=== PATIENT | female | born 1955 ===

== ENCOUNTER 2017-09-04 11:42 | Inpatient (IN) | payer MEDICARE, MEDICAID ==
[2017-09-04] MEDS ORDERED: Sodium Chloride 0.9% 500 ML IV STA (12:44)
--- NOTE | 2017-09-04 12:47 | ED PDOC ---
HPI: General Adult Time Seen by Provider: 09/04/17 12:00 Chief Complaint (Nursing): Psychiatric Evaluation Chief Complaint (Provider): depressed History Per: Patient History/Exam Limitations: no limitations Onset/Duration Of Symptoms: Days (3) Additional Complaint(s): Pt. with weakness all over. Tired. Today she got out of bed and felt weak and sat down and slept on the floor. No syncope. health aid called EMS. Pt. denies any chest pain, dyspnea, nausea, vomit, diarrhea, fever, cough, abd pain, numbness, tingles, dizziness. No headache or neck pain. 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 Feels depressed since her . Past Medical History Reviewed: Nursing Documentation, Vital Signs Vital Signs: Last Vital Signs Temp 98.8 F 09/04/17 15:46 Pulse 68 09/04/17 15:46 Resp 16 09/04/17 15:46 BP 118/69 09/04/17 15:46 Pulse Ox 99 09/04/17 17:02 - Medical History PMH: Dementia, Diabetes, HTN, Hypercholesterolemia - Family History Family History: States: Unknown Family Hx - Social History Alcohol: None Drugs: Denies - Home Medications Home Medications: Ambulatory Orders Medication Instructions Recorded Atorvastatin [Lipitor] 10 mg PO HS 09/04/17 Calcium/Mag/D3/B12/FA/B6/[place] 1 tab PO DAILY 09/04/17 [Folgard Os Tablet] Carvedilol [Coreg] 25 mg PO Q12 09/04/17 Clonazepam [Klonopin] 2 mg PO Q12 09/04/17 Digoxin [Digitek] 125 mcg PO DAILY 09/04/17 Ergocalciferol (Vitamin D2) 50,000 unit PO QWK 09/04/17 [Vitamin D2] Ibandronate Sodium [Boniva] 150 mg PO Q30D 09/04/17 Linagliptin/Metformin HCl 1 tab PO DAILY 09/04/17 [Jentadueto Xr 2.5 mg-1,000 mg] Lisinopril [Zestril] 2.5 mg PO DAILY 09/04/17 Potassium Chloride [Klor-Con 8] 8 meq PO DAILY 09/04/17 Spironolactone [Aldactone] 25 mg PO DAILY 09/04/17 Torsemide [Demadex] 20 mg PO DAILY 09/04/17 Zolpidem [Ambien] 5 mg PO HS 09/04/17 - Allergies Allergies/Adverse Reactions: Allergies Allergy/AdvReac Type Severity Reaction Status Date / Time Unobtainable Allergy Verified 09/04/17 11:54 Review of Systems ROS Statement: Except As Marked, All Systems Reviewed And Found Negative Constitutional: Positive for: Weakness Neurological: Positive for: Weakness Physical Exam - Reviewed Nursing Documentation Reviewed: Yes Vital Signs Reviewed: Yes - Physical Exam Appears: Positive for: Non-toxic, No Acute Distress Head Exam: Positive for: ATRAUMATIC, NORMAL INSPECTION, NORMOCEPHALIC Skin: Positive for: Normal Color, Warm, DRY Eye Exam: Positive for: EOMI, PERRL (2+) ENT: Positive for: Normal ENT Inspection. Negative for: Nasal Congestion Neck: Positive for: Normal, Painless ROM, Supple Cardiovascular/Chest: Positive for: Regular Rate, Rhythm Respiratory: Positive for: CNT, Normal Breath Sounds Gastrointestinal/Abdominal: Positive for: Normal Exam, Bowel Sounds, Soft. Negative for: Tenderness Back: Positive for: Normal Inspection. Negative for: L CVA Tenderness, R CVA Tenderness Extremity: Positive for: Normal ROM. Negative for: Tenderness, Pedal Edema Neurologic/Psych: Positive for: Alert, drip pumper II-XII, Oriented, Motor/Sensory Deficits (4/5 strength all extremities) - Laboratory Results Result Diagrams: 09/04/17 12:55 09/04/17 12:55 Interpretation Of Abn Labs: no acute - ECG ECG: Positive for: Interpreted By Me, Viewed By Me ECG Rhythm: Positive for: Nonspecific Changes O2 Sat by Pulse Oximetry: 99 Pulse Ox Interpretation: Normal - Radiology X-Ray: Read By Radiologist X-Ray Interpretation: No Acute Disease - CT Scan/US head Other Rad Studies (CT/US): Read By Radiologist Other Rad Interpretation: no active - Progress ED Course And Treament: 1701: Pending crisis eval. Medically stable for psych. 1852: Crisis wants [facility] screening. Dr. Steele to take over care. Disposition - Clinical Impression Clinical Impression: Depression - Patient ED Disposition Is Patient to be Admitted: Transfer of Care Counseled Patient/Family Regarding: Studies Performed, Diagnosis - Disposition Disposition Time: 18:53 Condition: FAIR Patient Signed Over To: Khoa Steele
[2017-09-04 13:10] LABS: PROTHROMBIN TIME 11.7 Seconds (9.8-13.1)
[2017-09-04 13:11] LABS: ALB/GLOB RATIO 1.3 (1.0-2.1); ALT/SGPT 31 U/L (9-52); AST/SGOT 35 U/L (14-36); BLOOD UREA NITROGEN 14 mg/dl (7-17); CALCIUM 9.2 mg/dL (8.4-10.2); GFR AFRICAN-AMERICAN > 60; GFR NON-AFRICAN AMERICAN > 60; INR 1.1 (0.9-1.2); PARTIAL THROMBOPLASTIN TIME 25.1 Seconds (25.6-37.1)
[2017-09-04 13:23] LABS: BASO # 0.1 K/uL (0.0-0.2); EOS # 0.1 K/uL (0.0-0.7); MONO # 0.6 K/uL (0.0-0.8); NEUT # 4.9 K/uL (1.8-7.0); RBC 3.77 Mil/uL (3.80-5.20)
[2017-09-04 13:35] LABS: HEMOGLOBIN 11.4 g/dL (12.0-16.0); LYMPH # 4.2 K/uL (1.0-4.3); LYMPH % 42.6 % (20.0-40.0); MEAN CELL VOLUME 81.9 fl (81.0-99.0); MEAN CORPUSCULAR HEMOGLOBIN 30.3 pg (27.0-31.0); MEAN PLATELET VOLUME 7.3 fl (7.2-11.7); MONO % 6.3 % (0.0-10.0); NEUT % 49.1 % (50.0-75.0); NRBC % 0.2 % (0.0-0.0)
--- NOTE | 2017-09-04 13:48 | RAD ---
HISTORY: dyspnea COMPARISON: Chest radiograph dated 12/09/2011. FINDINGS: LUNGS: No active pulmonary disease. PLEURA: No significant pleural effusion identified, no pneumothorax apparent. CARDIOVASCULAR: Cardiomediastinal silhouette stably enlarged. OSSEOUS STRUCTURES: Unchanged. VISUALIZED UPPER ABDOMEN: Right upper quadrant surgical clips redemonstrated. OTHER FINDINGS: None. IMPRESSION: No active disease.
--- NOTE | 2017-09-04 13:54 | CT ---
PROCEDURE: CT HEAD WITHOUT CONTRAST. HISTORY: headache COMPARISON: CT scan of the head dated 12/09/2011 TECHNIQUE: Axial computed tomography images were obtained through the head/brain without intravenous contrast. Radiation dose: Total exam DLP = 881 mGy-cm. This CT exam was performed using one or more of the following dose reduction techniques: Automated exposure control, adjustment of the mA and/or kV according to patient size, and/or use of iterative reconstruction technique. FINDINGS: HEMORRHAGE: No intracranial hemorrhage. BRAIN: No mass effect or edema. Mild atrophy. Mild chronic periventricular microvascular ischemic changes. VENTRICLES: Unremarkable. No hydrocephalus. CALVARIUM: Unremarkable. PARANASAL SINUSES: Left maxillary sinus secretions. MASTOID AIR CELLS: Unremarkable as visualized. No inflammatory changes. OTHER FINDINGS: None. IMPRESSION: No acute intracranial pathology.
--- NOTE | 2017-09-04 19:24 | ED PDOC ---
- Laboratory Results Result Diagrams: 09/04/17 12:55 09/04/17 12:55 - ECG O2 Sat by Pulse Oximetry: 99 Medical Decision Making Medical Decision Making: Time: 19:00 Patient signed over to me by Dr. Chapa pending [facility] screener. Time: 01:17 Patient is medically stable for psych evaluation. Scribe Attestation: Documented by Filemon Austin, acting as a scribe for Khoa Steele MD. Provider Scribe Attestation: All medical record entries made by the Scribe were at my direction and personally dictated by me. I have reviewed the chart and agree that the record accurately reflects my personal performance of the history, physical exam, medical decision making, and the department course for this patient. I have also personally directed, reviewed, and agree with the discharge instructions and disposition. Disposition - Clinical Impression Clinical Impression: Depression - POA Present On Arrival: None - Disposition Disposition: Admitted as In-Patient Disposition Time: 00:45 Condition: FAIR
[2017-09-04 19:45] LABS: SQUAMOUS EPITHIAL 6 /hpf (0-5); URINE BACTERIA RARE (<OCC); URINE BILIRUBIN NEGATIVE (NEGATIVE); URINE BLOOD NEGATIVE (NEGATIVE); URINE CLARITY SLIGHTY-CLOUDY (Clear); URINE COLOR YELLOW (YELLOW); URINE GLUCOSE (UA) NEG (Normal); URINE LEUKOCYTE ESTERASE LARGE Leu/uL (Negative); URINE PROTEIN NEGATIVE (NEGATIVE); URINE UROBILINOGEN 0.2-1.0 mg/dL (0.2-1.0)
[2017-09-04 19:49] LABS: BENZODIAZEPINES, UR NEGATIVE (NEGATIVE)
[2017-09-04 19:50] LABS: BARBITURATES, UR POSITIVE (NEGATIVE); OPIATES, UR NEGATIVE (NEGATIVE); PHENCYCLIDINE, UR NEGATIVE (NEGATIVE)
[2017-09-05 02:23] VITALS: O2SAT 99
[2017-09-05] MEDS ORDERED: Magnesium Hydroxide Susp 30 ml UD PO PRN (02:30)
[2017-09-05] MEDS ORDERED: DiphenhydrAMINE 50 mg/ml Inj IM PRN (02:30)
[2017-09-05] MEDS ORDERED: Alum-Mag Hydrox-Simethicone Susp (30 mL) PO PRN (02:30)
--- NOTE | 2017-09-05 02:41 | PCM.BM ---
<Peter Mitchell - Last Filed: 09/05/17 02:40> Treatment Plan Problems - Problems identified on initial assessmt Hopelessness/Helplessness Date Initiated: 09/05/17 Time Initiated: 02:40 Assessment reference: NA Status: Active Treatment assets and liabiliti Patient Assests: resourceful, negotiates basic needs Patient Liabilities: live alone, poor support system, imparied memory - Milieu Protocol Maintain good personal hygiene: daily Encourage regular showers, daily Remind patient to perform daily oral care, daily Assist patient to perform ADL's Maintain personal safety: every shift Educate patient to report safety concerns to staff, every shift Monitor environment for contraband/sharps Medication safety: Monitor for expected outcome, potential side effects: every shift, Assess barriers to learning: every shift, Assess readiness for medication education: every shift <Saray Gonzalez - Last Filed: 09/05/17 10:53> - Diagnosis (1) Major depressive disorder Status: Acute Interventions: Medication management, Individual and group therapy, Psychoeducation 09/05/17 10:53 <Tamela Fernando - Last Filed: 09/05/17 15:28> Family Contact Family contact: Patient agrees to contact Family contact name: Osman- son Family contacted how many times per week?: 2 Family contact comment: [phone] - Outside Agency Accredited Home Health Care involvment: Information-sharing Agency contact number: [phone] Adult Day Care Center Care involvment: Information-sharing Agency contact number: Discharge/Continuing Care - Education Needs Education Needs: Family Medication, Family Diagnosis/Disease Process, Family Coping Skills, Family Placement options, Family Community resources, Family Activities of Daily Living, Family Nutrition, Family Health Practices/Safety, Family Personal Hygiene/Grooming, Family Aftercare Safety Plan, Patient Medication, Patient Diagnosis/Disease Process, Patient Coping Skills, Patient Placement options, Patient Community resources, Patient Activities of Daily Living, Patient Nutrition, Patient Health Practices/Safety, Patient Personal Hygiene/Grooming, Patient Aftercare Safety Plan - Discharge Discharge Criteria: Tolerates medication w/o severe side effects, Free of agitation, Normal sleep pattern, Ability to care for self, Reduction of target symptoms Discharge to:: Home - Additional Comments 09/05/17 15:21 Pt seen and discussed in team meeting. Reason for admission reviewed and discussed. 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 Pt reported that following his she began to wake up at night time and visualize her in the bedroom. Pt reported she recalls last seeing her approximately 3 weeks ago. Pt reported that caring for her for 10 years was very stressful and once he "it was tranquil." Pt reported poor appetite and poor sleep for approximately one week. Pt reported she has lost a significant amount of weight. Pt also reported feeling lonely and abandoned by her son.. Pt's medications reviewed and discussed. Tx plan reviewed and pt is agreeable. Sw to continue to follow case - Treatment Team Participation Discussed with Family/SO: No Was Patient/Family/SO present at Treatment Team Meeting: Yes
[2017-09-05 07:57] LABS: IRON 108 ug/dL (37-170)
[2017-09-05 08:07] LABS: % IRON SATURATION 41 % (20-55); TOTAL IRON BINDING CAPACITY 263 ug/dL (250-450)
[2017-09-05 08:14] LABS: T4 7.43 ug/dl (5.5-11.0)
--- NOTE | 2017-09-05 10:54 | PCM.PSYCH ---
Initial Psychiatric Evaluation - Initial Psychiatric Evaluation Type of Admission: Voluntary Legal Status: Capacity Chief Complaint (in patient's own words): "I'm depressed." Patient's Reaction to Hospitalization: HPI: 62 yo female presents w/ worsening depression, poor sleep, poor appetite w / weight loss, visual hallucinations of her (last 3 weeks ago) , feelings of hopelessness, feelings frustrated that her son does not visit her more and care for her more. No current AH/VH/paranoia/delusions. NO SI/HI. PPHx: Remote history of hospitalizations and 2 suicide attempts by ingesting Bleach, she does not give a specific date but states many many years ago. No current outpatient psychiatry. She is currently prescribed Amitriptyline 50 mg PO Daily, Paxil 30 mg PO Daily, Klonopin 2 mg PO Q12 and Ambien 5 mg PO HS by her PMD Dr. 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, has 1 adult son Current Medications: Active Medications Generic Name Dose Route Start Last Admin Trade Name Freq PRN Reason Stop Dose Admin Acetaminophen 650 mg 09/05/17 02:30 Tylenol 325mg Tab PO Q4 PRN for 4-7 pain Al Hydrox/Mg Hydrox/Simethicone 30 ml 09/05/17 02:30 Maalox Plus 30 Ml PO Q4 PRN Dyspepsia Diphenhydramine HCl 50 mg 09/05/17 02:30 Benadryl IM Q6 PRN Extrapyramidal S/S Unable PO Lorazepam 0.5 mg 09/05/17 02:51 Ativan PO 09/19/17 02:52 HS PRN Insomnia Lorazepam 0.5 mg 09/05/17 02:51 Ativan PO 09/19/17 02:52 Q6 PRN Anixety/Agitation Magnesium Hydroxide 30 ml 09/05/17 02:30 Milk Of Magnesia PO HS PRN Constipation Past Psychiatric History - Past Psychiatric History Previous Treatment History: Inpatient Pertinent Medical Hx (Current Medical&Sleep Prob, Allergies): Allergies Allergy/AdvReac Type Severity Reaction Status Date / Time No Known Allergies Allergy Verified 09/05/17 02:59 Atorvastatin [Lipitor] 10 mg PO HS 09/04/17 Calcium/Mag/D3/B12/FA/B6/[place] [Folgard Os Tablet] 1 tab PO DAILY 09/04/17 Carvedilol [Coreg] 25 mg PO Q12 09/04/17 Clonazepam [Klonopin] 2 mg PO Q12 09/04/17 Digoxin [Digitek] 125 mcg PO DAILY 09/04/17 Ergocalciferol (Vitamin D2) [Vitamin D2] 50,000 unit PO QWK 09/04/17 Ibandronate Sodium [Boniva] 150 mg PO Q30D 09/04/17 Linagliptin/Metformin HCl [Jentadueto Xr 2.5 mg-1,000 mg] 1 tab PO DAILY Lisinopril [Zestril] 2.5 mg PO DAILY 09/04/17 Potassium Chloride [Klor-Con 8] 8 meq PO DAILY 09/04/17 Spironolactone [Aldactone] 25 mg PO DAILY 09/04/17 Torsemide [Demadex] 20 mg PO DAILY 09/04/17 Zolpidem [Ambien] 5 mg PO HS 09/04/17 Review of Systems - Psychiatric Psychiatric: Abnormal Sleep Pattern, Anhedonia, Anxiety, Change in Appetite, Depression, Difficulty Concentrating, Hopelessness, Memory Loss, Visual Hallucinations Mental Status Examination - Personal Presentation Personal Presentation: Looks stated age - Affect Affect: Constricted - Motor Activity Motor Activity: Calm - Reliability in Providing Information Reliability in Providing Information: Poor, due to altered mood - Speech Speech: Coherent - Mood Mood: Depressed - Formal Thought Process Formal Thought Process: No Impairment - Hallucinations/Delusions Additional comments: No AH/VH/paranoia/delusions - Obsessions/Compulsions Obsessions: No Compulsions: No - Cognitive Functions Orientation: Person, Place, Situation, Time Sensorium: Alert Attention/Concentration: Attentive Judgement: Intact, as evidence by: Insight regarding need for hospitalization Memory: Recent intact, as evidence by: Ability to recall events of the day - Risk Risk: Diminished functioning - Strength & Assets Inventory Strength & Assets Inventory: Family support, Cooperative - Limitations Limitations: Living alone DSM 5 DX - DSM 5 DSM 5 Diagnosis: Major Depressive Disorder w/ Psychotic Features; Anxiety Disorder NOS - Recommended/Plan of Treatment Treatment Recommendations and Plan of Treatment: Major Depressive Disorder w/ Psychotic Features; Anxiety Disorder NOS -Admit to geriatric psychiatry unit -Individual and group therapy -Psychoeducation -Case discussed w/ Dr. Maria -Will hold Ambien -Will hold Amitriptyline, unclear the initial indication for this medication -Increase Paxil to 40 mg PO Daily -Taper Klonopin -Neurology consult for management of seizure disorder; patient self discontinued Keppra -Obtain collateral history -Medicine consult -Disposition planning Projected ELOS: 5-9 days Discharge Plan and Discharge Criteria: Discharge when patient is psychiatrically stable - Smoking Cessation Smoking Cessation Initiated: No Reason for not providing: Not indicated
[2017-09-05] MEDS ORDERED: METFORMIN HCL PO SCH (11:15)
[2017-09-05] MEDS ORDERED: ALENDRONATE 70 MG TAB PO SCH (11:15)
[2017-09-05] MEDS ORDERED: LINAGLIPTIN PO SCH (11:15)
[2017-09-05] MEDS: Digoxin 125 mcg (0.125 mg) Tab PO SCH (12:22)
[2017-09-05] MEDS: Potassium Chloride 8 MEQ TER PO SCH (12:23)
[2017-09-05] MEDS: Pantoprazole 40 mg EC Tab PO SCH (12:28)
--- NOTE | 2017-09-05 13:41 | CARD ---
APPROVED REPORT EKG Measurement Heart [id number] <Conclusion> Normal sinus rhythm Abnormal T waves in V1 to V3 Abnormal ECG
--- NOTE | 2017-09-05 15:21 | CP.PCM.CON ---
History of Present Illness - History of Present Illness History of Present Illness: This is a 62 year old female with a past medical history of type 2 diabetes mellitus, essential hypertension, seizures, hypercholesterolemia, congenital right eye blindness since , osteoarthritis, osteoporosis, who presented to the ED with the complaint of weakness. She got out of bed yesterday morning and states she could barely walk. She then slept on the floor several hours and was found by her home appliance washing machine mechanic who called EMS. She was subsequently admitted to inpatient geropsych unit after being found to have depression and thought to likely be the source of her weakness. She has a poor support system and lives alone. Vitals in the ED were stable. Lab workup shows undetectable digoxin level (likely has not been taking this medication). She was recently admitted to [facility] for depression and was dx with UTI at that time and prescribed Cephalexin. In addition, the patient was on Keflex until 5 months ago and then stopped taking it when her . She states she has not had any seizures since not taking it. Patient denies chest pain, shortness of breath, fevers, chills, nausea, vomiting, diarrhea, headache. All of the patient's and/or family's questions were answered at the bedside. Review of Systems - Review of Systems Review of Systems: A 12 point review of systems was conducted and found to be negative other than what was mentioned in the HPI. Past Patient History - Infectious Disease Hx of Infectious Diseases: None - Past Social History Alcohol: None Drugs: Denies - CARDIAC Hx Cardiac Disorders: Yes (HTN, hypercholesterolemia) - PULMONARY Hx Tuberculosis: No - NEUROLOGICAL HX Cerebrovascular Accident: No - HEMATOLOGICAL/ONCOLOGICAL Hx Cancer: No Hx Human Immunodeficiency Virus (HIV): No - GENITOURINARY/GYNECOLOGICAL Hx Sexually Transmitted Disorders: No - PSYCHIATRIC Hx Depression: Yes Hx Substance Use: No Meds Allergies/Adverse Reactions: Allergies Allergy/AdvReac Type Severity Reaction Status Date / Time No Known Allergies Allergy Verified 09/05/17 02:59 - Medications Medications: Current Medications Acetaminophen (Tylenol 325mg Tab) 650 mg PO Q4 PRN PRN Reason: for 4-7 pain Al Hydrox/Mg Hydrox/Simethicone (Maalox Plus 30 Ml) 30 ml PO Q4 PRN PRN Reason: Dyspepsia Alendronate Sodium (Fosamax) 70 mg PO QWK [facility] Last Admin: 09/05/17 12:23 Dose: 70 mg Aspirin (Ecotrin) 81 mg PO DAILY [facility] Last Admin: 09/05/17 12:28 Dose: 81 mg Carvedilol (Coreg) 25 mg PO Q12 [facility] Clonazepam (Klonopin) 1 mg PO Q12 [facility] Digoxin (Digoxin) 0.125 mg PO DAILY [facility] Last Admin: 09/05/17 12:22 Dose: 0.125 mg Diphenhydramine HCl (Benadryl) 50 mg IM Q6 PRN PRN Reason: Extrapyramidal S/S Unable PO Lisinopril (Zestril) 2.5 mg PO DAILY [facility] Last Admin: 09/05/17 12:22 Dose: 2.5 mg Lorazepam (Ativan) 0.5 mg PO HS PRN PRN Reason: Insomnia Stop: 09/19/17 02:52 Lorazepam (Ativan) 0.5 mg PO Q6 PRN PRN Reason: Anixety/Agitation Stop: 09/19/17 02:52 Magnesium Hydroxide (Milk Of Magnesia) 30 ml PO HS PRN PRN Reason: Constipation Metformin HCl (Glucophage) 500 mg PO BIDWM [facility] Pantoprazole Sodium (Protonix Ec Tab) 40 mg PO DAILY [facility] Last Admin: 09/05/17 12:28 Dose: 40 mg Paroxetine HCl (Paxil) 40 mg PO DAILY [facility] Potassium Chloride (Klor-Con 8) 8 meq PO DAILY [facility] Last Admin: 09/05/17 12:23 Dose: 8 meq Spironolactone (Aldactone) 25 mg PO DAILY [facility] Last Admin: 09/05/17 12:24 Dose: 25 mg Torsemide (Demadex) 20 mg PO DAILY [facility] Last Admin: 09/05/17 12:24 Dose: 20 mg Physical Exam - Additional Findings Additional findings: Physical exam: Constitutional- cooperative, awake, alert Head- NCAT, PERRL Eye- PERRL, EOMI ENT- normal exam, MMM. Neck- normal inspection, supple, no JVD Respiratory- CTAB, no wheezes rales rhonchi Cardiovascular- RRR, +S1, +S2 no MRG GI/Abdominal- normal bowel sounds, soft, no mass, no hsm Skin- warm, dry Extremities Exam- normal capillary refill, normal inspection Neurological Exam- alert, awake, oriented Psych- bizarre mood, flat affect Results - Vital Signs Recent Vital Signs: Last Vital Signs Temp 98.2 F 09/05/17 05:49 Pulse 95 H 09/05/17 12:22 Resp 18 09/05/17 05:49 BP 112/66 09/05/17 12:22 Pulse Ox 99 09/05/17 02:23 - Labs Result Diagrams: 09/04/17 12:55 09/04/17 12:55 Labs: Laboratory Results - last 24 hr 09/04/17 09/04/17 09/04/17 19:28 19:28 19:28 POC Glucose (mg/dL) Hemoglobin A1c Iron TIBC % Saturation Ferritin Triglycerides Cholesterol LDL Cholesterol Direct HDL Cholesterol Vitamin B12 Free T4 Thyroxine (T4) TSH 3rd Generation Urine Color Yellow Urine Clarity Slighty-cloudy Urine pH 8.0 Ur Specific [place] 1.006 Urine Protein Negative Urine Glucose (UA) Neg Urine Ketones Negative Urine Blood Negative Urine Nitrate Negative Urine Bilirubin Negative Urine Urobilinogen 0.2-1.0 Ur Leukocyte Esterase Large Urine RBC (Auto) 2 Urine Microscopic WBC 14 H Ur Squamous Epith Cells 6 H Urine Bacteria Rare Urine Opiates Screen Negative Urine Methadone Screen Negative Ur Barbiturates Screen Positive H Ur Phencyclidine Scrn Negative Ur Amphetamines Screen Negative U Benzodiazepines Scrn Negative U Oth Cocaine Metabols Negative U Cannabinoids Screen Negative Alcohol, Quantitative < 10 09/05/17 09/05/17 09/05/17 05:46 07:24 07:24 POC Glucose (mg/dL) 72 Hemoglobin A1c 5.4 Iron TIBC % Saturation Ferritin 44.0 Triglycerides 107 Cholesterol 164 LDL Cholesterol Direct 73 HDL Cholesterol 54 Vitamin B12 388 Free T4 Thyroxine (T4) 7.43 TSH 3rd Generation 1.36 Urine Color Urine Clarity Urine pH Ur Specific [place] Urine Protein Urine Glucose (UA) Urine Ketones Urine Blood Urine Nitrate Urine Bilirubin Urine Urobilinogen Ur Leukocyte Esterase Urine RBC (Auto) Urine Microscopic WBC Ur Squamous Epith Cells Urine Bacteria Urine Opiates Screen Urine Methadone Screen Ur Barbiturates Screen Ur Phencyclidine Scrn Ur Amphetamines Screen U Benzodiazepines Scrn U Oth Cocaine Metabols U Cannabinoids Screen Alcohol, Quantitative 09/05/17 09/05/17 07:24 07:24 POC Glucose (mg/dL) Hemoglobin A1c Iron 108 TIBC 263 % Saturation 41 Ferritin Triglycerides Cholesterol LDL Cholesterol Direct HDL Cholesterol Vitamin B12 Free T4 1.03 Thyroxine (T4) TSH 3rd Generation Urine Color Urine Clarity Urine pH Ur Specific [place] Urine Protein Urine Glucose (UA) Urine Ketones Urine Blood Urine Nitrate Urine Bilirubin Urine Urobilinogen Ur Leukocyte Esterase Urine RBC (Auto) Urine Microscopic WBC Ur Squamous Epith Cells Urine Bacteria Urine Opiates Screen Urine Methadone Screen Ur Barbiturates Screen Ur Phencyclidine Scrn Ur Amphetamines Screen U Benzodiazepines Scrn U Oth Cocaine Metabols U Cannabinoids Screen Alcohol, Quantitative - EKG Data EKG shows normal: Sinus rhythm, [place], Intervals, QRS complexes, ST-T waves Rate: Normal Assessment & Plan - Assessment and Plan (Free Text) Plan: ASSESSMENT/PLAN This is a 62 year old female admitted to inpatient psychiatry unit for depression with multiple comorbidities as listed below 1) Type 2 DM - Hg A1C 5.4 - Metformin 500 mg PO BID - No need for accuchecks appears well controlled 2) Essential hypertension - Also appears well controlled - Continue Coreg 25mg po q 12 hours - Lisinopril 2.5 mg po daily 3) CHF (unspecified, chronic, stable) - Demadex 20 mg po daily - Spironolactone 25 mg po daily - Postassium repletion - Digoxin 0.125 mg po daily- should recheck digoxin level in 4-5 days 4) Hx GERD - Chronic - Continue Protonix 5) Osteoporosis - Continue Fosamax 70 mg po q week 6) Hx seizures - On Klonopin 1 mg po q 12 hours - Agree with neurology consult to evaluate if patient should be restarted on Keppra - EEG ordered 7) Depression - As per psychiatry
--- NOTE | 2017-09-06 07:25 | PCM.PYCHPN ---
Psychiatric Progress Note - Psychiatric Progress Note Patient seen today, length of contact: Patient evaluated, case discussed w/ team , chart reviewed Patient Chief Complaint: "I'm depressed." Problems Identified/Issues Discussed: Patient reports that she continues to feel depressed w/ poor sleep. Psychoeducation provided on the danger of snf use of Klonopin. Patient is resistant to tapering the Klonopin, but scientific writer informed patient that we will be tapering he medication. She continues to report chronic migraines. She has been observed eating meals w/o complaints. No current AH/VH/paranoia/ delusions. Medication Change: Yes (Continue to taper Klonopin) Medical Record Reviewed: Yes Consults ordered or reviewed: Medicine consult Mental Status Examination - Cognitive Function Orientation: Person, Place, Situation, Time Memory: Impaired (Patient has difficulty remembering her medications) Decription of patient's judgement and insights: Fair I/J - Mood Mood: Depressed - Affect Affect: Constricted - Formal Thought Process Formal Thought Process: No Impairment Psychotic Thoughts and Behaviors: NO AH/VH/paranoia/delusions - Suicidal Ideation Suicidal Ideation: No - Homicidal Ideation Homicidal Ideation: No Goal/Treatment Plan - Goal/Treatment Plan Need for Continued Stay: Remain at risks for inpatient hospitalization, Severe depression anxiety Progress Toward Problem(s) and Goals/Treatment Plan: Major Depressive Disorder w/ Psychotic Features; Anxiety Disorder NOS -Individual and group therapy -Psychoeducation -Case discussed w/ Dr. Maria -Will hold Ambien -Continue Amitriptyline for chronic migraines, will f/u w/ neurology re: recommendations -Continue Paxil to 40 mg PO Daily -Taper Klonopin -Neurology consult for management of seizure disorder; patient self discontinued Keppra -Obtain collateral history -Medicine consult -Disposition planning Estimated Date of D/C: 09/10/17
[2017-09-06] MEDS: Potassium Chloride 8 MEQ TER PO SCH (08:23)
[2017-09-06] MEDS: Digoxin 125 mcg (0.125 mg) Tab PO SCH (08:25)
[2017-09-06] MEDS: Pantoprazole 40 mg EC Tab PO SCH (08:28)
[2017-09-07] MEDS: Potassium Chloride 8 MEQ TER PO SCH (09:04)
[2017-09-07] MEDS: Pantoprazole 40 mg EC Tab PO SCH (09:05)
[2017-09-07] MEDS: Digoxin 125 mcg (0.125 mg) Tab PO SCH (09:07)
--- NOTE | 2017-09-07 12:26 | PCM.PYCHPN ---
Psychiatric Progress Note - Psychiatric Progress Note Patient seen today, length of contact: Patient evaluated, case discussed w/ team , chart reviewed Patient Chief Complaint: "I'm depressed." Problems Identified/Issues Discussed: Patient reports that she continues to feel depressed and anxious w/ difficulty sleeping at night. +Normal appetite. No current AH/VH/paranoia/delusions. Medication Change: No Medical Record Reviewed: Yes Consults ordered or reviewed: Medicine consult Mental Status Examination - Cognitive Function Orientation: Person, Place, Situation, Time Memory: Impaired Decription of patient's judgement and insights: Fair I/J - Mood Mood: Depressed, Anxious - Affect Affect: Constricted - Formal Thought Process Formal Thought Process: No Impairment Psychotic Thoughts and Behaviors: NO AH/VH/paranoia/delusions - Suicidal Ideation Suicidal Ideation: No - Homicidal Ideation Homicidal Ideation: No Goal/Treatment Plan - Goal/Treatment Plan Need for Continued Stay: Remain at risks for inpatient hospitalization, Severe depression anxiety Progress Toward Problem(s) and Goals/Treatment Plan: Major Depressive Disorder w/ Psychotic Features; Anxiety Disorder NOS -Individual and group therapy -Psychoeducation -Case discussed w/ Dr. Maria -Will hold Ambien -Continue Amitriptyline for chronic migraines, will f/u w/ neurology re: recommendations -Continue Paxil 40 mg PO Daily -Taper Klonopin -Neurology consult for management of seizure disorder; patient self discontinued Keppra -Obtain collateral history -Medicine consult -Disposition planning Estimated Date of D/C: 09/11/17
[2017-09-08] MEDS: Digoxin 125 mcg (0.125 mg) Tab PO SCH (08:30)
[2017-09-08] MEDS: Pantoprazole 40 mg EC Tab PO SCH (08:31)
[2017-09-08] MEDS: Potassium Chloride 8 MEQ TER PO SCH (08:31)
--- NOTE | 2017-09-08 09:46 | PCM.PYCHPN ---
Psychiatric Progress Note - Psychiatric Progress Note Patient seen today, length of contact: Patient evaluated, case discussed w/ team , chart reviewed Patient Chief Complaint: "I'm better." Problems Identified/Issues Discussed: Patient reports that her mood is improving; reports improvement in anxiety and depression. She is more goal oriented and hopeful of the future. She denies AH /VH/SI/HI. She reports improved sleep and appetite. Medication Change: No Medical Record Reviewed: Yes Consults ordered or reviewed: Medicine consult Mental Status Examination - Cognitive Function Orientation: Person, Place, Situation, Time Memory: Intact Attention: WNL Concentration: WNL Association: WN Fund of Knowledge: [facility] Decription of patient's judgement and insights: Fair I/J - Mood Mood: Anxious - Affect Affect: Broad - Formal Thought Process Formal Thought Process: No Impairment Psychotic Thoughts and Behaviors: NO AH/VH/paranoia/delusions - Suicidal Ideation Suicidal Ideation: No - Homicidal Ideation Homicidal Ideation: No Goal/Treatment Plan - Goal/Treatment Plan Need for Continued Stay: Severe depression anxiety Progress Toward Problem(s) and Goals/Treatment Plan: Major Depressive Disorder w/ Psychotic Features; Anxiety Disorder NOS; patient is improving clinically, will likely discharge tomorrow. -Individual and group therapy -Psychoeducation -Case discussed w/ Dr. Maria -Continue Amitriptyline for chronic migraines, will f/u w/ neurology re: recommendations -Continue Paxil 40 mg PO Daily -Continue Klonopin 1 mg PO Q12 -Neurology consult for management of seizure disorder; patient self discontinued Keppra -Medicine consult -Disposition planning Estimated Date of D/C: 09/09/17
[2017-09-08 17:37] LABS: FOLATE 16.8 ng/mL
[2017-09-09 06:11] VITALS: BP 111/71; PULSE 92; RESP 19; TEMP 97.3
[2017-09-09] MEDS: Potassium Chloride 8 MEQ TER PO SCH (08:01)
[2017-09-09] MEDS: Pantoprazole 40 mg EC Tab PO SCH (08:01)
[2017-09-09 08:02] VITALS: PULSE 92
[2017-09-09] MEDS: Digoxin 125 mcg (0.125 mg) Tab PO SCH (08:02)
--- NOTE | 2017-09-09 09:56 | PCM.PYCHDC ---
Mental Status Examination - Mental Status Examination Orientation: Person, Place, Situation, Time Memory: Intact Mood: Neutral Affect: Broad Speech: Appropriate Attention: WNL Concentration: WNL Association: WNL Fund of Knowledge: WNL Formal Thought Process: No Impairment Description of patient's judgement and insight: Fair I/J Psychotic Thoughts and Behaviors: NO AH/VH/paranoia/delusions Suicidal Ideation: No Current Homicidal Ideation?: No Discharge Summary - Discharge Note Reason for Hospitalization: HPI: 62 yo female presents w/ worsening depression, poor sleep, poor appetite w / weight loss, visual hallucinations of her (last 3 weeks ago) , feelings of hopelessness, feelings frustrated that her son does not visit her more and care for her more. No current AH/VH/paranoia/delusions. NO SI/HI. PPHx: Remote history of hospitalizations and 2 suicide attempts by ingesting Bleach, she does not give a specific date but states many many years ago. No current outpatient psychiatry. She is currently prescribed Amitriptyline 50 mg PO Daily, Paxil 30 mg PO Daily, Klonopin 2 mg PO Q12 and Ambien 5 mg PO HS by her PMD Dr. 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 Reason for request. 2. Findings. 3. Follow-up Consultations: Medicine consult, Neurology consult Summary of Hospital Course include:: 1. Description of specific treatment plan utilized for patients during their course of treatmen. 2. Summarize the time- course for resolution of acute symptoms and/or regressed behaviors. 3. Describe issues identified and worked on during hospitalization. 4. Describe medication utilized. 5. Describe medical problems identified and treated. 6. Reassessment of suicide risk Summary of Hospital Course: Patient was admitted to the psychiatry unit. Individual and group therapy were provided. Patient was stabilized on Paxil and Klonopin was decreased. Patient reports improvement in mood and is psychiatrically stable for discharge. Importance of follow-up treatment with a psychiatrist was discussed with the patient. - Diagnosis (1) Major depressive disorder Current Visit: Yes Status: Chronic - Final Diagnosis (DSM 5) Condition upon Discharge: STABLE DSM 5: Major Depressive Disorder w/ Psychotic Features; Anxiety Disorder NOS Disposition: HOME/ ROUTINE Follow-up Treatment Plan: Major Depressive Disorder w/ Psychotic Features; Anxiety Disorder NOS -Continue Paxil 40 mg PO Daily -Continue Klonopin 1 mg PO Q12 Prescriptions/Medication Reconciliation: clonazePAM [Klonopin] 1 mg PO Q12 #60 tab Paroxetine HCl [Paxil] 40 mg PO DAILY #30 tablet - Smoking Cessation Smoking Cessation Medication prescribed: No Reason for not providing: Not indicated - Antipsychotic Medications Pt discharged on 2 or more routine antipsychotic medications: No
[2017-09-09] MEDS ORDERED: Divalproex 500 mg DR(BID formulation) PO SCH (17:00)
== END 2017-09-09 13:45 | disposition home or self-care (01) | DRG 885 ==
LOC: H.ER 11:42 → H.ERHOLD 09-05 00:52 → H.STEP 09-05 02:22
PROVIDERS: ADMIT Psychiatry & Neurology Psychiatry; ATTEND Psychiatry & Neurology Psychiatry
PROC: GZHZZZZ Group Psychotherapy (ICD-10-PCS; principal; 2017-09-05)
PROC: GZ51ZZZ Individual Psychotherapy, Behavioral (ICD-10-PCS; 2017-09-05)
DX: F32.3 Major depressive disorder, single episode, severe with psychotic features (principal); I11.0 Hypertensive heart disease with heart failure; I50.9 Heart failure, unspecified; F03.90 Unspecified dementia, unspecified severity, without behavioral disturbance, psychotic disturbance, mood disturbance, and anxiety; E11.39 Type 2 diabetes mellitus with other diabetic ophthalmic complication; G40.909 Epilepsy, unspecified, not intractable, without status epilepticus; F41.9 Anxiety disorder, unspecified; G43.909 Migraine, unspecified, not intractable, without status migrainosus; H54.61 Unqualified visual loss, right eye, normal vision left eye; K21.9 Gastro-esophageal reflux disease without esophagitis; M19.90 Unspecified osteoarthritis, unspecified site; M81.0 Age-related osteoporosis without current pathological fracture; Z79.83 Long term (current) use of bisphosphonates; Z79.84 Long term (current) use of oral hypoglycemic drugs; Z79.899 Other long term (current) drug therapy; Z87.440 Personal history of urinary (tract) infections; G47.9 Sleep disorder, unspecified; E78.00 Pure hypercholesterolemia, unspecified; E78.5 Hyperlipidemia, unspecified

== ENCOUNTER 2017-09-30 11:15 | Emergency (ER) | payer MEDICARE, MEDICAID ==
[2017-09-30 11:15] VITALS: PULSE 92
[2017-09-30 11:22] VITALS: O2SAT 98
--- NOTE | 2017-09-30 15:17 | US ---
PROCEDURE:: Bilateral lower extremity venous duplex Doppler examination. HISTORY: Bilateral calf pain . PRIORS: None. FINDINGS: 2-D, color and duplex Doppler analysis of both lower extremity venous circulation using routine protocol from the femoral veins through the popliteal veins. Venous compressibility: Normal. Flow and augmentation patterns: Normal. Visualized veins upper third of calf: Normal. Figueredo cyst: None. IMPRESSION: No evidence of deep venous thrombosis in bilateral lower extremities.
--- NOTE | 2017-09-30 15:26 | ED PDOC ---
Lower Extremity Pain/Injury Time Seen by Provider: 09/30/17 11:56 Chief Complaint (Nursing): Lower Extremity Problem/Injury Chief Complaint (Provider): Bilateral calf pain, unable to walk History Per: Patient History/Exam Limitations: no limitations Onset/Duration Of Symptoms: Days Current Symptoms Are (Timing): Still Present Additional Complaint(s): PT states she is having leg pain and unable to walk. PT ambulated to restroom prior to medication. PT states it has been going on a few days. Pt reports pain in both caves. Past Medical History Reviewed: Historical Data, Nursing Documentation, Vital Signs Vital Signs: Last Vital Signs Temp 98.4 F 09/30/17 11:20 Pulse 103 H 09/30/17 11:20 Resp 20 09/30/17 11:20 BP 108/71 09/30/17 11:20 Pulse Ox 98 09/30/17 11:20 - Medical History PMH: Dementia, Depression, Diabetes, HTN, Hypercholesterolemia Denies: Hepatitis, HIV, Seizures, Sexually Transmitted Disease - Family History Family History: States: Unknown Family Hx - Home Medications Home Medications: Ambulatory Orders Medication Instructions Recorded Atorvastatin [Lipitor] 10 mg PO HS 09/04/17 Calcium/Mag/D3/B12/FA/B6/[place] 1 tab PO DAILY 09/04/17 [Folgard Os Tablet] Carvedilol [Coreg] 25 mg PO Q12 09/04/17 Digoxin [Digitek] 125 mcg PO DAILY 09/04/17 Ergocalciferol (Vitamin D2) 50,000 unit PO QWK 09/04/17 [Vitamin D2] Linagliptin/Metformin HCl 1 tab PO DAILY 09/04/17 [Jentadueto Xr 2.5 mg-1,000 mg] Potassium Chloride [Klor-Con 8] 8 meq PO DAILY 09/04/17 Spironolactone [Aldactone] 25 mg PO DAILY 09/04/17 Torsemide [Demadex] 20 mg PO DAILY 09/04/17 Alendronate Sodium [Binosto] 70 mg PO QWK 09/05/17 Amitriptyline HCl 50 mg PO DAILY 09/05/17 Aspirin [Adult Low Dose Aspirin EC] 81 mg PO DAILY 09/05/17 Omeprazole 40 mg PO DAILY 09/05/17 Paroxetine HCl [Paxil] 40 mg PO DAILY #30 tablet 09/08/17 clonazePAM [Klonopin] 1 mg PO Q12 #60 tab 09/08/17 [address]proex [Depakote DR(*BID*)] 500 mg PO BID #60 tcp 09/09/17 - Allergies Allergies/Adverse Reactions: Allergies Allergy/AdvReac Type Severity Reaction Status Date / Time No Known Allergies Allergy Verified 09/30/17 11:20 Review of Systems ROS Statement: Except As Marked, All Systems Reviewed And Found Negative Constitutional: Negative for: Fever, Chills Cardiovascular: Negative for: Chest Pain Respiratory: Negative for: Cough, Shortness of Breath Musculoskeletal: Positive for: Leg Pain Physical Exam - Reviewed Nursing Documentation Reviewed: Yes Vital Signs Reviewed: Yes - Physical Exam Appears: Positive for: Well, Non-toxic, No Acute Distress Head Exam: Positive for: ATRAUMATIC, NORMAL INSPECTION, NORMOCEPHALIC Skin: Positive for: Normal Color, Warm, DRY Eye Exam: Positive for: Normal appearance ENT: Positive for: Normal ENT Inspection Neck: Positive for: Normal, Painless ROM Cardiovascular/Chest: Positive for: Regular Rate, Rhythm Respiratory: Positive for: Normal Breath Sounds. Negative for: Accessory Muscle Use, Respiratory Distress Gastrointestinal/Abdominal: Positive for: Normal Exam, Soft Back: Positive for: Normal Inspection Extremity: Positive for: Normal ROM Neurologic/Psych: Positive for: Alert, Oriented - ECG O2 Sat by Pulse Oximetry: 98 Medical Decision Making Medical Decision Making: Pt ambulates to the restroom twice. PT sleeping comfortably while waiting for results. US (-) for DVT Disposition - Clinical Impression Clinical Impression: Neuropathy - Patient ED Disposition Is Patient to be Admitted: No Counseled Patient/Family Regarding: Diagnosis, Need For Followup - Disposition Disposition: Routine/Home Disposition Time: 15:44 Condition: GOOD Additional Instructions: Tylenol may be taken at home for pain Instructions: Peripheral Neuropathy (DC) Forms: [employer] ([place] Citizen) Print Language: FRISIAN
[2017-09-30 16:53] VITALS: BP 115/70; PULSE 69; RESP 15; TEMP 98.9
== END 2017-09-30 19:45 | disposition home or self-care (01) ==
LOC: H.ER 11:15
DX: G62.9 Polyneuropathy, unspecified (principal); I10 Essential (primary) hypertension; E11.9 Type 2 diabetes mellitus without complications; E78.00 Pure hypercholesterolemia, unspecified; F03.90 Unspecified dementia, unspecified severity, without behavioral disturbance, psychotic disturbance, mood disturbance, and anxiety; F32.9 Major depressive disorder, single episode, unspecified; Z79.82 Long term (current) use of aspirin

== ENCOUNTER 2017-10-21 16:51 | Observation (INO) | payer MEDICARE, MEDICAID ==
[2017-10-21 18:53] LABS: BASO % 0.5 % (0.0-2.0); EOS # 0.1 K/uL (0.0-0.7); EOS % 1.4 % (0.0-4.0); HEMOGLOBIN 11.6 g/dL (12.0-16.0); LYMPH # 2.9 K/uL (1.0-4.3); LYMPH % 38.4 % (20.0-40.0); MEAN CELL VOLUME 84.7 fl (81.0-99.0); MEAN CORPUSCULAR HEMOGLOBIN 30.3 pg (27.0-31.0); MEAN CORPUSCULAR HGB CONC 35.8 g/dL (33.0-37.0); MEAN PLATELET VOLUME 6.8 fl (7.2-11.7); MONO # 0.6 K/uL (0.0-0.8); MONO % 7.4 % (0.0-10.0); NEUT # 3.9 K/uL (1.8-7.0); NEUT % 52.3 % (50.0-75.0); RBC 3.82 Mil/uL (3.80-5.20); RED CELL DISTRIBUTION WIDTH 14.5 % (11.5-14.5); WHITE BLOOD COUNT 7.5 K/uL (4.8-10.8)
[2017-10-21 19:03] LABS: ALB/GLOB RATIO 1.3 (1.0-2.1); ALBUMIN 4.2 g/dL (3.5-5.0); ALT/SGPT 33 U/L (9-52); AST/SGOT 29 U/L (14-36); BLOOD UREA NITROGEN 14 mg/dl (7-17); CALCIUM 9.6 mg/dL (8.4-10.2); GFR AFRICAN-AMERICAN > 60; GFR NON-AFRICAN AMERICAN > 60
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
--- NOTE | 2017-10-21 21:53 | CP.PCM.HP ---
History of Present Illness - History of Present Illness History of Present Illness: PMD: Dr Maria Chief Complaint: EMS called for Seizure The patient was seen and evaluated in the ED HPI: This is a 62 years old female whose in 2017 , now lives alone, with hx of HTN, DM II, and Depression who was last admitted to the Psychiatric Unit for Depression on 09/05/17. She was brought to he ED because of an episode at the adult day care center with falling after getting up from a chair. She referred LOC for seconds and had urinary incontinence. Here in the ED she again fell but with no LOC nor evidence of seizure activity. She also referred falling on the day prior to admission. No headaches, Dizziness , nausea, vomits, SOB, Diarrhea nor dysuria. PMH: Dementia, Major Depression, DM II; HTN, HLD; Seizure? ; Ossteoporesis; Osteoarthritis; Migraine; Congenital right eye blindness PSH; Denies SH: ; Lives alone with Health Aide daily for 5hrs; attends Adult Day Care daily; Never Smoked; no Alcohol use; No illegal drug use FH: States: Unknown Family Hx Allergies: NKDA Medication: Reviewed Present on Admission - Present on Admission Any Indicators Present on Admission: No History of DVT/PE: No History of Uncontrolled Diabetes: No Urinary Catheter: No Decubitus Ulcer Present: No Review of Systems - Constitutional Constitutional: Frequent Falls, Headache. absent: Anorexia, Chills, Fatigue, Fever - EENT Eyes: Requires Corrective Lenses. absent: Diplopia, Floaters, Sees Flashes Ears: absent: Decreased Hearing, Ear Discharge, Ear Pain, Tinnitus Nose/Mouth/Throat: absent: Epistaxis, Nasal Congestion, Sinus Pain, Sinus Pressure - Cardiovascular Cardiovascular: absent: Chest Pain, Dyspnea, Edema - Respiratory Respiratory: absent: Cough, Dyspnea, Wheezing, Stridor, Chest Congestion - Gastrointestinal Gastrointestinal: absent: Abdominal Pain, Constipation, Diarrhea, Nausea, Vomiting - Genitourinary Genitourinary: absent: Dysuria, Flank Pain, Hematuria, Urinary Frequency - Musculoskeletal Musculoskeletal: Numbness. absent: Back Pain, Joint Swelling, Muscle Weakness - Integumentary Integumentary: absent: Pruritus, Rash, Skin Ulcer, Sores, Striae, Swelling - Neurological Neurological: absent: Confusion, Dizziness, Focal Weakness, Headaches, Weakness - Psychiatric Psychiatric: Anxiety, Depression. absent: Panic Attacks - Endocrine Endocrine: absent: Palpitations, Polydipsia, Polyphagia, Polyuria - Hematologic/Lymphatic Hematologic: absent: Easy Bleeding, Easy Bruising Past Patient History - Infectious Disease Hx of Infectious Diseases: None - Past Medical History & Family History Past Medical History?: Yes - Past Social History Smoking Status: Never Smoked Chewing Tobacco Use: No Cigar Use: No Alcohol: None Home Situation {Lives}: Alone - CARDIAC Hx Hypercholesterolemia: Yes Hx Hypertension: Yes - PULMONARY Hx Respiratory Disorders: No Hx Tuberculosis: No - NEUROLOGICAL Hx Neurological Disorder: No Hx Seizures: No - HEENT Hx Blind: Yes (congenital right eye blindness) - RENAL Hx Chronic Kidney Disease: No - ENDOCRINE/METABOLIC Hx Diabetes Mellitus Type 2: Yes - HEMATOLOGICAL/ONCOLOGICAL Hx Blood Disorders: No Hx Human Immunodeficiency Virus (HIV): No - INTEGUMENTARY Hx Dermatological Problems: No - MUSCULOSKELETAL/RHEUMATOLOGICAL Hx Osteoarthritis: Yes Hx Osteoporosis: Yes - GASTROINTESTINAL Hx Gastrointestinal Disorders: No - GENITOURINARY/GYNECOLOGICAL Hx Genitourinary Disorders: No Hx Sexually Transmitted Disorders: No - PSYCHIATRIC Hx Depression: Yes - SURGICAL HISTORY Hx Surgeries: No - ANESTHESIA Hx Anesthesia: No Meds Allergies/Adverse Reactions: Allergies Allergy/AdvReac Type Severity Reaction Status Date / Time No Known Allergies Allergy Verified 09/30/17 11:20 Physical Exam - Constitutional Appears: No Acute Distress - Head Exam Head Exam: ATRAUMATIC, NORMAL INSPECTION, NORMOCEPHALIC - Eye Exam Eye Exam: EOMI, Normal appearance Pupil Exam: NORMAL ACCOMODATION, PERRL - ENT Exam ENT Exam: Mucous Membranes Moist, Normal Exam, Normal External Ear Exam - Neck Exam Neck exam: Positive for: Full Rom, Normal Inspection. Negative for: Lymphadenopathy, Tenderness - Respiratory Exam Respiratory Exam: Clear to Auscultation Bilateral, NORMAL BREATHING PATTERN. absent: Rales, Rhonchi, Wheezes - Cardiovascular Exam Cardiovascular Exam: REGULAR RHYTHM, RRR, +S1, +S2. absent: Gallop, JVD - GI/Abdominal Exam GI & Abdominal Exam: Normal Bowel Sounds, Soft. absent: Mass, Organomegaly, Tenderness - Rectal Exam Rectal Exam: Deferred - Extremities Exam Extremities exam: Positive for: full ROM, normal inspection. Negative for: calf tenderness, joint swelling, pedal edema - Back Exam Back exam: NORMAL INSPECTION. absent: CVA tenderness (L), CVA tenderness (R) - Neurological Exam Neurological exam: Alert, CN II-XII Intact, Oriented x3, Reflexes Normal - Psychiatric Exam Psychiatric exam: Normal Affect, Normal Mood - Skin Skin Exam: Dry, Intact, Normal Color, Warm Results - Vital Signs Recent Vital Signs: Last Vital Signs Temp 97.2 F L 10/21/17 16:55 Pulse 78 10/21/17 19:14 Resp 18 10/21/17 19:14 BP 124/71 10/21/17 19:14 Pulse Ox 97 10/21/17 20:45 - Labs Result Diagrams: 10/21/17 18:45 10/21/17 18:45 Labs: Laboratory Results - last 24 hr 10/21/17 10/21/17 10/21/17 17:15 18:45 18:45 WBC 7.5 RBC 3.82 Hgb 11.6 L Hct 32.4 L MCV 84.7 D MCH 30.3 MCHC 35.8 RDW 14.5 Plt Count 309 MPV 6.8 L Neut % (Auto) 52.3 Lymph % (Auto) 38.4 [place] % (Auto) 7.4 Eos % (Auto) 1.4 Baso % (Auto) 0.5 Neut # (Auto) 3.9 Lymph # (Auto) 2.9 [place] # (Auto) 0.6 Eos # (Auto) 0.1 Baso # (Auto) 0.0 Sodium 136 Potassium 4.3 Chloride 93 L Carbon Dioxide 31 H Anion Gap 16 BUN 14 Creatinine 0.6 L Est GFR ( Amer) > 60 Est GFR (Non-Af Amer) > 60 POC Glucose (mg/dL) 124 H Random Glucose 133 H Calcium 9.6 Total Bilirubin 0.3 AST 29 ALT 33 Alkaline Phosphatase 56 Troponin I < 0.0120 Total Protein 7.4 Albumin 4.2 Globulin 3.2 Albumin/Globulin Ratio 1.3 Alcohol, Quantitative < 10 10/21/17 19:06 WBC RBC Hgb Hct MCV MCH MCHC RDW Plt Count MPV Neut % (Auto) Lymph % (Auto) [place] % (Auto) Eos % (Auto) Baso % (Auto) Neut # (Auto) Lymph # (Auto) [place] # (Auto) Eos # (Auto) Baso # (Auto) Sodium Potassium Chloride Carbon Dioxide Anion Gap BUN Creatinine Est GFR ( Amer) Est GFR (Non-Af Amer) POC Glucose (mg/dL) 133 H Random Glucose Calcium Total Bilirubin AST ALT Alkaline Phosphatase Troponin I Total Protein Albumin Globulin Albumin/Globulin Ratio Alcohol, Quantitative - EKG Data EKG comments: NSR 76/min with LBBB - Imaging and Cardiology CT scan - head Status: Image reviewed by me, Report reviewed by me Additional comment: CT Head Without Intravenous Contrast EXAM DATE/TIME: 10/21/2017 7:19 PM FINDINGS: LIMITATIONS: Mild streak/motion artifact. BRAIN: Tiny area of low density in the right basal ganglia, most compatible with an old/chronic lacunar infarct. No significant acute abnormality identified. No acute hemorrhage seen within the brain. No acute extra-axial fluid collections visualized. No evidence of significant mass effect within the brain. VENTRICLES: No evidence of significant hydrocephalus. BONES/JOINTS: No acute fractures or other acute bony abnormality noted. SOFT TISSUES: No acute abnormality of the visualized soft tissues is seen. SINUSES: Mucous retention cyst in the left maxillary sinus. No evidence of sinus fluid levels. MASTOID AIR CELLS: Mastoid air cells appear clear. IMPRESSION: - No evidence of acute intracranial injury or fractures. - See above for remaining findings. Chest x-ray Status: Image reviewed by me Additional comment: No infiltrate Assessment & Plan - Assessment and Plan (Free Text) Assessment: #. Syncope #. Recurrent Falls #. DM II #. Deprressive Disorder #. HTN Plan: 62 years old female whose in 2017, now lives alone, with hx of HTN, DM II, and Depression, was brought to he ED because of an episode at the adult day care center with falling after getting up from a chair with LOC for seconds and had urinary incontinence. Here in the ED she again fell but with no LOC nor evidence of seizure activity. #. Syncope. Seizure a possibility although on her last admission an EEG done on 09/08/17 showed no focal epileptiform disorder. This could be Orthostatic hypotension caused by medication vs cardiac arrhythmia. consider Conversion dysorder - Observe with telemetry monitoring - Consult Dr Paz neurology - Consult Dr Gonzalez Psychiatry - Seizure Precaution with bed rails up and side rails padded - No EEG ordered at present - Depakote level in serum - Depalote BID . Orthostatic blood pressures, Lying/Sitting #. Recurrent Falls - OT/PT #. DM II -Metformin - Regular Insulin Sliding scale according to Accucheck ACHS #. Depressive Disorder - Consullt Dr Gonzalez #. HTN - Coreg - Follow Blood Pressures #. DVT prophylaxis with Lovenox #. Code Status: Full - Date & Time Date: 10/21/17 Time: 21:53
[2017-10-21] MEDS ORDERED: Ergocalciferol 50,000 Intl Units Cap PO SCH (23:00)
[2017-10-21] MEDS ORDERED: ALENDRONATE 70 MG TAB PO SCH (23:15)
[2017-10-22] MEDS: Insulin Regular 100 units/ml SC SCH ×4 (06:36→21:52)
[2017-10-22] MEDS ORDERED: Sodium Chloride 0.9% 100 ML ONE (08:02)
[2017-10-22] MEDS ORDERED: Iodixanol 320 MG/ML 100 ML BOTTLE IV ONE (08:02)
[2017-10-22] MEDS: Digoxin 125 mcg (0.125 mg) Tab PO SCH (08:40)
[2017-10-22] MEDS: Divalproex 500 mg DR(BID formulation) PO SCH ×2 (08:40→16:58)
[2017-10-22] MEDS: Enoxaparin 40 mg Syringe SC SCH (08:45)
[2017-10-22] MEDS: Pantoprazole 40 mg EC Tab PO SCH (08:46)
--- NOTE | 2017-10-22 08:46 | RAD ---
HISTORY: crisis COMPARISON: Frontal chest radiograph 09/04/2017. FINDINGS: LUNGS: Trace patchy density is question at the medial right base. Consider atelectasis or possible early infiltrate. Linear atelectasis is identified the inferior left base. PLEURA: No significant pleural effusion identified, no pneumothorax apparent. CARDIOVASCULAR: Normal. OSSEOUS STRUCTURES: No significant abnormalities. VISUALIZED UPPER ABDOMEN: Surgical clips right upper quadrant abdomen. OTHER FINDINGS: None. IMPRESSION: Limited atelectasis or early infiltrate medial right base. Linear atelectasis is seen at the left base.
[2017-10-22] MEDS ORDERED: Patient's Own Med (Paroxetine Hcl [Paxil] 40 MG) PO SCH (09:00)
[2017-10-22] MEDS ORDERED: Valproate 1,000 MG in Sodium Chloride 0.9% 100 ML IVPB ONE (10:30)
--- NOTE | 2017-10-22 10:44 | CARD ---
APPROVED REPORT EKG Measurement Heart [id number] <Conclusion> Normal sinus rhythm Left bundle branch block Abnormal ECG
--- NOTE | 2017-10-22 10:58 | CT ---
PROCEDURE: CT Angiography of the neck and brain dated 10/22/2017 HISTORY: Syncope. COMPARISON: Comparison made with CT scan brain dated 10/21/2017 TECHNIQUE: Contiguous helical/transaxial images of the neck were obtained from the level of the skull-base to the superior mediastinum in the arteriographic phase of enhancement. Coronal and sagittal reformats or also generated. IV contrast dose: 95 cc Visipaque 320 Radiation Dose - DLP: 1937.83 mGy-cm This CT exam was performed using one or more of the following dose reduction techniques: Automated exposure control, adjustment of the mA and/or kV according to patient size, and/or use of iterative reconstruction technique. . FINDINGS: The aortic arch widely patent without evidence of significant atherosclerotic disease. The origins of the great vessels are also widely patent. The common carotid arteries are patent without occlusion dissection or significant stenosis. There mild calcified plaque changes seen left carotid bifurcation with narrowing estimated at approximately 50-60 %. . Minor calcified plaque right carotid bifurcation without significant stenosis. The remaining visualized distal internal carotid arteries including the petrous cavernous and supraclinoid segments which are widely patent. . The vertebral arteries are also widely patent left-sided which is larger in caliber/more dominant than the right. No evidence of occlusion dissection or significant stenosis. The visualized major branches of the [place] are also patent. The distal branches of the anterior middle and posterior cerebral arteries appear relatively symmetric. No evidence of large aneurysm nor vascular malformation. . IMPRESSION: Calcified plaque changes left carotid bifurcation with narrowing estimated at approximately 50 60 %. Carotid Doppler could be performed to confirm. The cerebral circulation is patent with no evidence of occlusion or significant stenosis. No evidence of large aneurysm nor vascular malformation.
--- NOTE | 2017-10-22 13:48 | CARD ---
APPROVED REPORT EXAM: Two-dimensional and M-mode echocardiogram with Doppler and color Doppler. Other Information Quality : GoodRhythm : NSR INDICATION Syncope 2D DIMENSIONS IVSd0.98 (0.7-1.1cm)LVDd4.22 (3.9-5.9cm) LVOT Diameter1.90 (1.8-2.4cm)PWd1.22 (0.7-1.1cm) IVSs1.08 (0.8-1.2cm)LVDs2.66 (2.5-4.0cm) FS (%) 37.0 %PWs1.25 (0.8-1.2cm) M-Mode DIMENSIONS Left Atrium (MM)3.55 (2.5-4.0cm)IVSd1.06 (0.7-1.1cm) Aortic Root2.55 (2.2-3.7cm)LVDd4.92 (4.0-5.6cm) Aortic Cusp Exc.1.85 (1.5-2.0cm)PWd1.26 (0.7-1.1cm) IVSs0.90 cmFS (%) 31 % LVDs3.40 (2.0-3.8cm)PWs1.83 cm Mitral Valve MV E Xxdahkrc43.3cm/sMV DECEL [id number] A Teripqgs07.8cm/s MV LLC53ieH/A ratio1.0MVA (PHT)4.76cm2 TDI Lateral E' Peak V7.33cm/sMedial E' Peak V6.52cm/sE/Lateral E'10.4 E/Medial E'11.7 Pulmonary Valve PV Peak Yqmhojuq74.4cm/s Tricuspid Valve TR Peak Bjdhszfu627ij/sRAP TZSZHSEE91owWzNG Peak Gr.18mmHg BPSH09egRg LEFT VENTRICLE The left ventricle is normal in size. There is normal left ventricular wall thickness. The left ventricular function is normal. The left ventricular ejection fraction is - 65-70%. The mid anterior and septal mccracken are mildly diskinetic. The other segments of the left ventricle contract well. Transmitral Doppler flow pattern is abnormal. No left ventricle thrombus noted on this study. There is no ventricular septal defect visualized. There is no left ventricular aneurysm. There is no mass noted in the left ventricle. RIGHT VENTRICLE The right ventricle is normal size. There is normal right ventricular wall thickness. The right ventricular systolic function is normal. ATRIA The left atrium size is normal. There is no thrombus suspected in the left atrium. The right atrium size is normal. The interatrial septum is intact with no evidence for an atrial septal defect. AORTIC VALVE The aortic valve is normal in structure. No aortic regurgitation is present. There is no aortic valvular stenosis. MITRAL VALVE The mitral valve is normal in structure. There is no evidence of mitral valve prolapse. There is no mitral valve stenosis. Mitral regurgitation is trivial. TRICUSPID VALVE The tricuspid valve is normal in structure. There is mild tricuspid regurgitation. Right ventricular systolic pressure is estimated at 28 mmHg. There is no tricuspid valve prolapse or vegetation. There is no tricuspid valve stenosis. PULMONIC VALVE The pulmonary valve is normal in structure. There is no pulmonic valvular regurgitation. GREAT VESSELS The aortic root is normal in size. The IVC is normal in size and collapses >50% with inspiration. PERICARDIAL EFFUSION There is a small anterior and posterior pericardial effusion. There is no pleural effusion. <Conclusion> The left ventricle is normal in size and wall thickness. The left ventricular function is normal. The left ventricular ejection fraction is - 65-70%. The left atrium, right ventricle and right atrium are normal in size. The mitral, aortic and tricuspid valves are normal. There is mild tricuspid regurgitation.
--- NOTE | 2017-10-22 14:25 | CP.PCM.CON ---
History of Present Illness - History of Present Illness History of Present Illness: pt is a 62 years old female whose in 2017, now lives alone, with hx of HTN, DM II, and Depression who was last admitted to the Psychiatric Unit for Depression on 09/05/17. She was brought to he ED because of an episode at the adult day care center with falling after getting up from a chair.since themn pt had mu;tiple fall episodes , currently on medical floor for work up on evaluation , pt reported episodes of depressed mood, relates that to being lonely as no family member is giving her attention after her ,s , pt stated she has episodes of cryoing at times as she misses talking to somebody , she however denied any current suicidal thoughts or ideations and stated she does not need to be in the hospital and that she enjoys going to the day program because she interacts with people there pt reported improved appetite since she was on the psychiatric unit, but reported episodes of early insomnia she denied any current suicidal or homicidal ideations denied any perceptual disturbances pt reported she is scheduled to see a psychiatrist next week in [facility] Past Patient History - Infectious Disease Hx of Infectious Diseases: None - Past Medical History & Family History Past Medical History?: Yes - Past Social History Smoking Status: Never Smoked - CARDIAC Hx Cardiac Disorders: Yes Hx Hypercholesterolemia: Yes Hx Hypertension: Yes - PULMONARY Hx Respiratory Disorders: No Hx Tuberculosis: No - NEUROLOGICAL Hx Neurological Disorder: Yes Hx Dementia: Yes (as per day care center facesheet) Hx Migraine: Yes Hx Seizures: Yes (as per day care center facesheet) - HEENT Hx HEENT Problems: Yes Hx Blind: Yes (congenital right eye blindness) - RENAL Hx Chronic Kidney Disease: No - ENDOCRINE/METABOLIC Hx Endocrine Disorders: Yes Hx Diabetes Mellitus Type 2: Yes - HEMATOLOGICAL/ONCOLOGICAL Hx Blood Disorders: No Hx Human Immunodeficiency Virus (HIV): No - INTEGUMENTARY Hx Dermatological Problems: No - MUSCULOSKELETAL/RHEUMATOLOGICAL Hx Musculoskeletal Disorders: Yes Hx Falls: Yes Hx Osteoarthritis: Yes Hx Osteoporosis: Yes - GASTROINTESTINAL Hx Gastrointestinal Disorders: No - GENITOURINARY/GYNECOLOGICAL Hx Genitourinary Disorders: No Hx Sexually Transmitted Disorders: No - PSYCHIATRIC Hx Psychophysiologic Disorder: Yes Hx Anxiety: Yes (as per patient) Hx Depression: Yes Hx Schizophrenia: Yes (as per daycare center facesheet) Hx Substance Use: No - SURGICAL HISTORY Hx Surgeries: No - ANESTHESIA Hx Anesthesia: No Meds Allergies/Adverse Reactions: Allergies Allergy/AdvReac Type Severity Reaction Status Date / Time No Known Allergies Allergy Verified 09/30/17 11:20 - Medications Medications: Current Medications Alendronate Sodium (Fosamax) 70 mg PO QWK [facility] Amitriptyline HCl (Elavil) 50 mg PO DAILY [facility] Last Admin: 10/22/17 08:41 Dose: 50 mg Aspirin (Ecotrin) 81 mg PO DAILY [facility] Last Admin: 10/22/17 08:45 Dose: 81 mg Atorvastatin Calcium (Lipitor) 10 mg PO HS [facility] Carvedilol (Coreg) 25 mg PO Q12 [facility] Last Admin: 10/22/17 08:39 Dose: Not Given Clonazepam (Klonopin) 1 mg PO Q12 [facility] Last Admin: 10/22/17 08:48 Dose: 1 mg Digoxin (Digoxin) 0.125 mg PO DAILY [facility] Last Admin: 10/22/17 08:40 Dose: 0.125 mg Divalproex Sodium (Depakote Dr(*Bid*)) 500 mg PO BID [facility] Last Admin: 10/22/17 08:40 Dose: 500 mg Enoxaparin Sodium (Lovenox) 40 mg SC DAILY [facility] PRN Reason: Protocol Last Admin: 10/22/17 08:45 Dose: 40 mg Ergocalciferol (Drisdol 50,000 Intl Units Cap) 1 cap PO QWK [facility] Insulin Human Regular (Humulin R) 0 units SC ACHS [facility] PRN Reason: Protocol Last Admin: 10/22/17 06:36 Dose: Not Given Metformin HCl (Glucophage) 1,000 mg PO BRK [facility] Last Admin: 10/22/17 08:44 Dose: 1,000 mg Pantoprazole Sodium (Protonix Ec Tab) 40 mg PO DAILY [facility] Last Admin: 10/22/17 08:46 Dose: 40 mg Paroxetine HCl (Paxil) 40 mg PO DAILY [facility] Last Admin: 10/22/17 08:46 Dose: 40 mg Spironolactone (Aldactone) 25 mg PO DAILY [facility] Last Admin: 10/22/17 08:40 Dose: Not Given Physical Exam - Psychiatric Exam Additional comments: pt seen in bed, good eye contact, cooperative, speech soft , mood reported fine , affect appropriate, thought form coherent , denied any current perceptual disturbances, non elicited, denied suicidal or homicidal ideations, alert awake oriented to person and place Results - Vital Signs Recent Vital Signs: Last Vital Signs Temp 98.1 F 10/22/17 12:21 Pulse 88 10/22/17 12:21 Resp 20 10/22/17 12:21 BP 112/73 10/22/17 12:21 Pulse Ox 98 10/22/17 12:21 - Labs Result Diagrams: 10/21/17 18:45 10/21/17 18:45 Labs: Laboratory Results - last 24 hr 10/21/17 10/21/17 10/21/17 17:15 18:45 18:45 WBC 7.5 RBC 3.82 Hgb 11.6 L Hct 32.4 L MCV 84.7 D MCH 30.3 MCHC 35.8 RDW 14.5 Plt Count 309 MPV 6.8 L Neut % (Auto) 52.3 Lymph % (Auto) 38.4 [place] % (Auto) 7.4 Eos % (Auto) 1.4 Baso % (Auto) 0.5 Neut # (Auto) 3.9 Lymph # (Auto) 2.9 [place] # (Auto) 0.6 Eos # (Auto) 0.1 Baso # (Auto) 0.0 Sodium 136 Potassium 4.3 Chloride 93 L Carbon Dioxide 31 H Anion Gap 16 BUN 14 Creatinine 0.6 L Est GFR ( Amer) > 60 Est GFR (Non-Af Amer) > 60 POC Glucose (mg/dL) 124 H Random Glucose 133 H Calcium 9.6 Total Bilirubin 0.3 AST 29 ALT 33 Alkaline Phosphatase 56 Troponin I < 0.0120 Total Protein 7.4 Albumin 4.2 Globulin 3.2 Albumin/Globulin Ratio 1.3 Vitamin B12 25-OH Vitamin D Total TSH 3rd Generation Valproic Acid Alcohol, Quantitative < 10 10/21/17 10/21/17 10/22/17 19:06 23:49 05:43 WBC RBC Hgb Hct MCV MCH MCHC RDW Plt Count MPV Neut % (Auto) Lymph % (Auto) [place] % (Auto) Eos % (Auto) Baso % (Auto) Neut # (Auto) Lymph # (Auto) [place] # (Auto) Eos # (Auto) Baso # (Auto) Sodium Potassium Chloride Carbon Dioxide Anion Gap BUN Creatinine Est GFR ( Amer) Est GFR (Non-Af Amer) POC Glucose (mg/dL) 133 H 96 Random Glucose Calcium Total Bilirubin AST ALT Alkaline Phosphatase Troponin I Total Protein Albumin Globulin Albumin/Globulin Ratio Vitamin B12 25-OH Vitamin D Total TSH 3rd Generation Valproic Acid 34.3 L Alcohol, Quantitative 10/22/17 10/22/17 10/22/17 06:25 06:25 12:57 WBC RBC Hgb Hct MCV MCH MCHC RDW Plt Count MPV Neut % (Auto) Lymph % (Auto) [place] % (Auto) Eos % (Auto) Baso % (Auto) Neut # (Auto) Lymph # (Auto) [place] # (Auto) Eos # (Auto) Baso # (Auto) Sodium Potassium Chloride Carbon Dioxide Anion Gap BUN Creatinine Est GFR ( Amer) Est GFR (Non-Af Amer) POC Glucose (mg/dL) 48 L Random Glucose Calcium Total Bilirubin AST ALT Alkaline Phosphatase Troponin I Total Protein Albumin Globulin Albumin/Globulin Ratio Vitamin B12 585 25-OH Vitamin D Total 21.2 L TSH 3rd Generation 1.59 Valproic Acid Alcohol, Quantitative Assessment & Plan - Assessment and Plan (Free Text) Assessment: major depression recurrent moderate Plan: decrease klonopin gradually to 0.5mg bid for increase in fall risk with benzodiazepine please change paxil 40mg to qhs instead of daily for anticholinergic effect and also it causes sedation so woul help with sleep at night social worker delinquency prevention may look into the possibility of home health aid services for night hours pt is psychiatricaly cleared for discharge upon medical clearence pt at current mental status denied any current suicidal or homicidal ideations
--- NOTE | 2017-10-22 15:08 | CP.PCM.CON ---
History of Present Illness - History of Present Illness History of Present Illness: Mrs. Gabriel is a 62-year-old woman with a past medical history of HTN, DM II, and Depression who was last admitted to the Psychiatric Unit for Depression on . She was brought to he ED because of an episode at the adult day care center with falling after getting up from a chair. She has had two syncopal episodes, one of which was associated with urinary incontinence, no tongue biting. No seizure-like activity was witnessed. She is on multiple psych medications, including depakote, klonapin, paxil, amitriptyline... as well as several antihypertensives and digoxin. The patient is currently back to baseline. CT head was normal, but CTA of the head/neck showed a 60% stenosis of the left carotid artery. Review of Systems - Review of Systems All systems: reviewed and no additional remarkable complaints except Past Patient History - Infectious Disease Hx of Infectious Diseases: None - Past Medical History & Family History Past Medical History?: Yes - Past Social History Smoking Status: Never Smoked - CARDIAC Hx Cardiac Disorders: Yes Hx Hypercholesterolemia: Yes Hx Hypertension: Yes - PULMONARY Hx Respiratory Disorders: No Hx Tuberculosis: No - NEUROLOGICAL Hx Neurological Disorder: Yes Hx Dementia: Yes (as per day care center facesheet) Hx Migraine: Yes Hx Seizures: Yes (as per day care center facesheet) - HEENT Hx HEENT Problems: Yes Hx Blind: Yes (congenital right eye blindness) - RENAL Hx Chronic Kidney Disease: No - ENDOCRINE/METABOLIC Hx Endocrine Disorders: Yes Hx Diabetes Mellitus Type 2: Yes - HEMATOLOGICAL/ONCOLOGICAL Hx Blood Disorders: No Hx Human Immunodeficiency Virus (HIV): No - INTEGUMENTARY Hx Dermatological Problems: No - MUSCULOSKELETAL/RHEUMATOLOGICAL Hx Musculoskeletal Disorders: Yes Hx Falls: Yes Hx Osteoarthritis: Yes Hx Osteoporosis: Yes - GASTROINTESTINAL Hx Gastrointestinal Disorders: No - GENITOURINARY/GYNECOLOGICAL Hx Genitourinary Disorders: No Hx Sexually Transmitted Disorders: No - PSYCHIATRIC Hx Psychophysiologic Disorder: Yes Hx Anxiety: Yes (as per patient) Hx Depression: Yes Hx Schizophrenia: Yes (as per daycare center facesheet) Hx Substance Use: No - SURGICAL HISTORY Hx Surgeries: No - ANESTHESIA Hx Anesthesia: No Meds Allergies/Adverse Reactions: Allergies Allergy/AdvReac Type Severity Reaction Status Date / Time No Known Allergies Allergy Verified 09/30/17 11:20 - Medications Medications: Current Medications Alendronate Sodium (Fosamax) 70 mg PO QWK [facility] Amitriptyline HCl (Elavil) 50 mg PO DAILY [facility] Last Admin: 10/22/17 08:41 Dose: 50 mg Aspirin (Ecotrin) 81 mg PO DAILY [facility] Last Admin: 10/22/17 08:45 Dose: 81 mg Atorvastatin Calcium (Lipitor) 10 mg PO HS [facility] Carvedilol (Coreg) 25 mg PO Q12 [facility] Last Admin: 10/22/17 08:39 Dose: Not Given Clonazepam (Klonopin) 1 mg PO Q12 [facility] Last Admin: 10/22/17 08:48 Dose: 1 mg Digoxin (Digoxin) 0.125 mg PO DAILY [facility] Last Admin: 10/22/17 08:40 Dose: 0.125 mg Divalproex Sodium (Depakote Dr(*Bid*)) 500 mg PO BID [facility] [place] Last Admin: 10/22/17 08:40 Dose: 500 mg Enoxaparin Sodium (Lovenox) 40 mg SC DAILY [facility] PRN Reason: Protocol Last Admin: 10/22/17 08:45 Dose: 40 mg Ergocalciferol (Drisdol 50,000 Intl Units Cap) 1 cap PO QWK [facility] Insulin Human Regular (Humulin R) 0 units SC ACHS [facility] PRN Reason: Protocol Last Admin: 10/22/17 06:36 Dose: Not Given Metformin HCl (Glucophage) 1,000 mg PO BRK [facility] [place] Last Admin: 10/22/17 08:44 Dose: 1,000 mg Pantoprazole Sodium (Protonix Ec Tab) 40 mg PO DAILY [facility] Last Admin: 10/22/17 08:46 Dose: 40 mg Paroxetine HCl (Paxil) 40 mg PO DAILY [facility] [place] Last Admin: 10/22/17 08:46 Dose: 40 mg Spironolactone (Aldactone) 25 mg PO DAILY [facility] [place] Last Admin: 10/22/17 08:40 Dose: Not Given Physical Exam - Neurological Exam Neurological exam: Alert, CN II-XII Intact, Normal Gait, Oriented x3, Reflexes Normal Results - Vital Signs Recent Vital Signs: Last Vital Signs Temp 98.1 F 10/22/17 12:21 Pulse 88 10/22/17 12:21 Resp 20 10/22/17 12:21 BP 112/73 10/22/17 12:21 Pulse Ox 98 10/22/17 12:21 - Labs Result Diagrams: 10/21/17 18:45 10/21/17 18:45 Labs: Laboratory Results - last 24 hr 10/21/17 10/21/17 10/21/17 17:15 18:45 18:45 WBC 7.5 RBC 3.82 Hgb 11.6 L Hct 32.4 L MCV 84.7 D MCH 30.3 MCHC 35.8 RDW 14.5 Plt Count 309 MPV 6.8 L Neut % (Auto) 52.3 Lymph % (Auto) 38.4 [place] % (Auto) 7.4 Eos % (Auto) 1.4 Baso % (Auto) 0.5 Neut # (Auto) 3.9 Lymph # (Auto) 2.9 [place] # (Auto) 0.6 Eos # (Auto) 0.1 Baso # (Auto) 0.0 Sodium 136 Potassium 4.3 Chloride 93 L Carbon Dioxide 31 H Anion Gap 16 BUN 14 Creatinine 0.6 L Est GFR ( Amer) > 60 Est GFR (Non-Af Amer) > 60 POC Glucose (mg/dL) 124 H Random Glucose 133 H Calcium 9.6 Total Bilirubin 0.3 AST 29 ALT 33 Alkaline Phosphatase 56 Troponin I < 0.0120 Total Protein 7.4 Albumin 4.2 Globulin 3.2 Albumin/Globulin Ratio 1.3 Vitamin B12 25-OH Vitamin D Total TSH 3rd Generation Valproic Acid Alcohol, Quantitative < 10 10/21/17 10/21/17 10/22/17 19:06 23:49 05:43 WBC RBC Hgb Hct MCV MCH MCHC RDW Plt Count MPV Neut % (Auto) Lymph % (Auto) [place] % (Auto) Eos % (Auto) Baso % (Auto) Neut # (Auto) Lymph # (Auto) [place] # (Auto) Eos # (Auto) Baso # (Auto) Sodium Potassium Chloride Carbon Dioxide Anion Gap BUN Creatinine Est GFR ( Amer) Est GFR (Non-Af Amer) POC Glucose (mg/dL) 133 H 96 Random Glucose Calcium Total Bilirubin AST ALT Alkaline Phosphatase Troponin I Total Protein Albumin Globulin Albumin/Globulin Ratio Vitamin B12 25-OH Vitamin D Total TSH 3rd Generation Valproic Acid 34.3 L Alcohol, Quantitative 10/22/17 10/22/17 10/22/17 06:25 06:25 12:57 WBC RBC Hgb Hct MCV MCH MCHC RDW Plt Count MPV Neut % (Auto) Lymph % (Auto) [place] % (Auto) Eos % (Auto) Baso % (Auto) Neut # (Auto) Lymph # (Auto) [place] # (Auto) Eos # (Auto) Baso # (Auto) Sodium Potassium Chloride Carbon Dioxide Anion Gap BUN Creatinine Est GFR ( Amer) Est GFR (Non-Af Amer) POC Glucose (mg/dL) 48 L Random Glucose Calcium Total Bilirubin AST ALT Alkaline Phosphatase Troponin I Total Protein Albumin Globulin Albumin/Globulin Ratio Vitamin B12 585 25-OH Vitamin D Total 21.2 L TSH 3rd Generation 1.59 Valproic Acid Alcohol, Quantitative 10/22/17 14:54 WBC RBC Hgb Hct MCV MCH MCHC RDW Plt Count MPV Neut % (Auto) Lymph % (Auto) [place] % (Auto) Eos % (Auto) Baso % (Auto) Neut # (Auto) Lymph # (Auto) [place] # (Auto) Eos # (Auto) Baso # (Auto) Sodium Potassium Chloride Carbon Dioxide Anion Gap BUN Creatinine Est GFR ( Amer) Est GFR (Non-Af Amer) POC Glucose (mg/dL) 73 Random Glucose Calcium Total Bilirubin AST ALT Alkaline Phosphatase Troponin I Total Protein Albumin Globulin Albumin/Globulin Ratio Vitamin B12 25-OH Vitamin D Total TSH 3rd Generation Valproic Acid Alcohol, Quantitative Assessment & Plan (1) Syncope Assessment and Plan: Could be neuro-cardiogenic, or related to polypharmacy. An EEG may be obtained and the patient should remain on telemetry with cardiology consult. VBI was ruled out with CTA. Status: Acute Priority: High (2) Left carotid stenosis Assessment and Plan: The stenosis appears to be moderate and is not likely the cause of her symptoms. A carotid doppler will be ordered. Continue aspirin 81 mg daily. Status: Acute Priority: High
--- NOTE | 2017-10-22 15:15 | CP.PCM.PN ---
Subjective - Date & Time of Evaluation Date of Evaluation: 10/22/17 Time of Evaluation: 09:00 - Subjective Subjective: Pt has no fever looks depressed alert , oriented denies CP no SOB no abd pain denies Headache, no dizziness Lives alone, has 5 hours/day home health aide and also goes to an Adult Day Care program daily Objective - Vital Signs/Intake and Output Vital Signs (last 24 hours): Temp Pulse Resp BP Pulse Ox 98.1 F 88 20 112/73 98 10/22/17 12:21 10/22/17 12:21 10/22/17 12:21 10/22/17 12:21 10/22/17 12:21 - Medications Medications: Current Medications Amitriptyline HCl (Elavil) 50 mg PO HS [facility] Aspirin (Ecotrin) 81 mg PO DAILY [facility] Last Admin: 10/22/17 08:45 Dose: 81 mg Atorvastatin Calcium (Lipitor) 10 mg PO HS [facility] Carvedilol (Coreg) 25 mg PO Q12 [facility] Last Admin: 10/22/17 08:39 Dose: Not Given Clonazepam (Klonopin) 0.5 mg PO Q12 [facility] Digoxin (Digoxin) 0.125 mg PO DAILY [facility] Last Admin: 10/22/17 08:40 Dose: 0.125 mg Divalproex Sodium (Depakote Dr(*Bid*)) 500 mg PO BID [facility] Last Admin: 10/22/17 08:40 Dose: 500 mg Enoxaparin Sodium (Lovenox) 40 mg SC DAILY [facility] PRN Reason: Protocol Last Admin: 10/22/17 08:45 Dose: 40 mg Ergocalciferol (Drisdol 50,000 Intl Units Cap) 1 cap PO QWK [facility] Insulin Human Regular (Humulin R) 0 units SC ACHS [facility] PRN Reason: Protocol Last Admin: 10/22/17 06:36 Dose: Not Given Pantoprazole Sodium (Protonix Ec Tab) 40 mg PO DAILY [facility] Last Admin: 10/22/17 08:46 Dose: 40 mg Paroxetine HCl (Paxil) 40 mg PO HS [facility] Spironolactone (Aldactone) 25 mg PO DAILY [facility] Last Admin: 10/22/17 08:40 Dose: Not Given - Labs Labs: 10/21/17 18:45 10/21/17 18:45 - Constitutional Appears: Non-toxic, No Acute Distress - Head Exam Head Exam: ATRAUMATIC, NORMAL INSPECTION, NORMOCEPHALIC - Eye Exam Eye Exam: EOMI, Normal appearance Pupil Exam: NORMAL ACCOMODATION - ENT Exam ENT Exam: Mucous Membranes Moist, Normal External Ear Exam - Neck Exam Neck Exam: Full ROM. absent: Meningismus - Respiratory Exam Respiratory Exam: NORMAL BREATHING PATTERN. absent: Rales, Wheezes, Respiratory Distress - Cardiovascular Exam Cardiovascular Exam: REGULAR RHYTHM, +S1, +S2 - GI/Abdominal Exam GI & Abdominal Exam: Soft, Normal Bowel Sounds. absent: Tenderness - Extremities Exam Extremities Exam: Full ROM, Normal Capillary Refill. absent: Calf Tenderness - Back Exam Back Exam: Full ROM. absent: CVA tenderness (L), CVA tenderness (R) - Neurological Exam Neurological Exam: Alert, Awake, CN II-XII Intact Additional comments: oriented to person and place - Psychiatric Exam Psychiatric exam: Flat Affect - Skin Skin Exam: Dry, Normal Color, Warm Assessment and Plan - Assessment and Plan (Free Text) Assessment: 62 years old female whose in 2017, now lives alone, with hx of HTN, DM II, and Depression, was brought to he ED because of an episode at the adult day care center with falling after getting up from a chair with LOC for seconds and had urinary incontinence. Here in the ED she again fell but with no LOC nor evidence of seizure activity. 1. Syncope. unclear etiology r/o Seizure , r/o Cardiac Dis, r/o Hypoglycemia r/o Conversion Disorder Seizure a possibility , pt had urinary incontinence during the episode , although on her last admission an EEG done on 09/08/17 showed no focal epileptiform disorder. This could also be Orthostatic hypotension caused by medication ( pt is on diurteics) vs cardiac arrhythmia also noticed that glucose has been low on monitoring and sh in on BID Metformin ( last hgba1c was 5.6) consider Conversion dysorder as pt has been depressed lateley -cont to Observe with telemetry monitoring - Consult Dr Paz neurology - Consult Dr Camara Psychiatry - Seizure Precaution with bed rails up and side rails paddedt - cont Depakote . Orthostatic blood pressures, Lying/Sitting - Cardio consult - ECHO -Carotid Sono -CT of head : neg 2. Recurrent Falls - OT/PT consult 3. DM II type II - accucheck q ac hs -d/c Metformin as noted glucose=48 today and Hgba1c done last month is 5.6 4. Depressive Disorder - Consult Dr Camara- rec to decrease Klonopin and change Paxil to q hs 5. HTN -cont Coreg - d/c Spirinolactone for now #. DVT prophylaxis with Lovenox #. Code Status: Full, Surrogate decision maker is her son
[2017-10-22 21:49] LABS: SQUAMOUS EPITHIAL 1 /hpf (0-5); URINE BACTERIA FEW (<OCC); URINE BILIRUBIN NEGATIVE (NEGATIVE); URINE BLOOD NEGATIVE (NEGATIVE); URINE CLARITY SLIGHTY-CLOUDY (Clear); URINE COLOR YELLOW (YELLOW); URINE GLUCOSE (UA) NEG (Normal); URINE LEUKOCYTE ESTERASE TRACE Leu/uL (Negative); URINE PROTEIN NEGATIVE (NEGATIVE); URINE UROBILINOGEN 0.2-1.0 mg/dL (0.2-1.0)
[2017-10-22 22:48] LABS: BARBITURATES, UR POSITIVE (NEGATIVE); BENZODIAZEPINES, UR NEGATIVE (NEGATIVE); OPIATES, UR NEGATIVE (NEGATIVE); PHENCYCLIDINE, UR NEGATIVE (NEGATIVE)
[2017-10-23 07:08] LABS: HEMOGLOBIN 11.3 g/dL (12.0-16.0); MEAN CELL VOLUME 85.3 fl (81.0-99.0); MEAN CORPUSCULAR HEMOGLOBIN 30.5 pg (27.0-31.0); MEAN CORPUSCULAR HGB CONC 35.7 g/dL (33.0-37.0); RBC 3.69 Mil/uL (3.80-5.20); RED CELL DISTRIBUTION WIDTH 14.7 % (11.5-14.5); WHITE BLOOD COUNT 6.7 K/uL (4.8-10.8)
[2017-10-23 07:45] LABS: BLOOD UREA NITROGEN 14 mg/dl (7-17); CALCIUM 9.3 mg/dL (8.4-10.2); GFR AFRICAN-AMERICAN > 60; GFR NON-AFRICAN AMERICAN > 60
[2017-10-23] MEDS: Digoxin 125 mcg (0.125 mg) Tab PO SCH (10:26)
[2017-10-23 10:27] VITALS: PULSE 64
[2017-10-23] MEDS: Divalproex 500 mg DR(BID formulation) PO SCH (10:28)
[2017-10-23] MEDS: Enoxaparin 40 mg Syringe SC SCH (10:29)
[2017-10-23] MEDS: Insulin Regular 100 units/ml SC SCH (10:30)
[2017-10-23] MEDS: Pantoprazole 40 mg EC Tab PO SCH (10:30)
--- NOTE | 2017-10-23 12:12 | US ---
PROCEDURE: Duplex ultrasound of the carotid and vertebral arteries. HISTORY: carotid plaque COMPARISON: None available. TECHNIQUE: Grayscale and duplex Doppler evaluation of the cervical carotid and vertebral arteries were performed. The common carotid, carotid bifurcations and cervical ICA and proximal ECA were evaluated. The vertebral arteries were evaluated for gross patency and direction. FINDINGS: RIGHT CAROTID ARTERIES: Common Carotid Artery: Normal. Maximal flow velocity of 71.3 cm/s. Carotid Bifurcation: Normal. Internal Carotid Artery:Normal. Maximal flow velocity of 69.5 cm/s. External Carotid Artery (proximal branches): Normal. Maximal flow velocity of 80.9 cm/s. ICA/CCA Ratio: 1.0 LEFT CAROTID ARTERIES: Common Carotid Artery: Normal. Maximal flow velocity of 94.3 cm/s. Carotid Bifurcation: Normal. Internal Carotid Artery:Normal. Maximal flow velocity of 79.2 cm/s. External Carotid Artery (proximal branches): Normal Maximal flow velocity of 87.3 cm/s. ICA/CCA Ratio: 0.8 VERTEBRAL ARTERIES: Right Vertebral Artery: Patent. Antegrade flow. Left Vertebral Artery: Patent. Antegrade flow. OTHER FINDINGS: None. IMPRESSION: Normal Duplex Doppler of the cervical carotid and vertebral arteries.
[2017-10-23 12:32] VITALS: RESP 18
--- NOTE | 2017-10-23 15:42 | CP.PCM.DIS ---
Provider - Provider Date of Admission: 10/21/17 21:36 Attending physician: Saad Ferreira Primary care physician: Dr Maria Consults: Cardio: Dr Boswell Neuro: Dr Paz Time Spent in preparation of Discharge (in minutes): 40 Diagnosis - Discharge Diagnosis (1) Syncope Status: Acute Priority: High (2) Depression Status: Chronic (3) HTN (hypertension) Status: Chronic (4) DM type 2 (diabetes mellitus, type 2) Status: Chronic Hospital Course - Lab Results Lab Results: Most Recent Lab Values WBC 6.7 K/uL (4.8-10.8) 10/23/17 06:00 RBC 3.69 Mil/uL (3.80-5.20) L 10/23/17 06:00 Hgb 11.3 g/dL (12.0-16.0) L 10/23/17 06:00 Hct 31.5 % (34.0-47.0) L 10/23/17 06:00 MCV 85.3 fl (81.0-99.0) 10/23/17 06:00 MCH 30.5 pg (27.0-31.0) 10/23/17 06:00 MCHC 35.7 g/dL (33.0-37.0) 10/23/17 06:00 RDW 14.7 % (11.5-14.5) H 10/23/17 06:00 Plt Count 300 K/uL (130-400) 10/23/17 06:00 MPV 6.8 fl (7.2-11.7) L 10/21/17 18:45 Neut % (Auto) 52.3 % (50.0-75.0) 10/21/17 18:45 Lymph % (Auto) 38.4 % (20.0-40.0) 10/21/17 18:45 [place] % (Auto) 7.4 % (0.0-10.0) 10/21/17 18:45 Eos % (Auto) 1.4 % (0.0-4.0) 10/21/17 18:45 Baso % (Auto) 0.5 % (0.0-2.0) 10/21/17 18:45 Neut # (Auto) 3.9 K/uL (1.8-7.0) 10/21/17 18:45 Lymph # (Auto) 2.9 K/uL (1.0-4.3) 10/21/17 18:45 [place] # (Auto) 0.6 K/uL (0.0-0.8) 10/21/17 18:45 Eos # (Auto) 0.1 K/uL (0.0-0.7) 10/21/17 18:45 Baso # (Auto) 0.0 K/uL (0.0-0.2) 10/21/17 18:45 Sodium 137 mmol/l (132-148) 10/23/17 06:00 Potassium 4.0 MMOL/L (3.6-5.0) 10/23/17 06:00 Chloride 95 mmol/L (98-107) L 10/23/17 06:00 Carbon Dioxide 29 mmol/L (22-30) 10/23/17 06:00 Anion Gap 17 (10-20) 10/23/17 06:00 BUN 14 mg/dl (7-17) 10/23/17 06:00 Creatinine 0.6 mg/dl (0.7-1.2) L 10/23/17 06:00 Est GFR ( Amer) > 60 10/23/17 06:00 Est GFR (Non-Af Amer) > 60 10/23/17 06:00 POC Glucose (mg/dL) 152 mg/dL (65-110) H 10/23/17 11:25 Random Glucose 102 mg/dL (65-105) 10/23/17 06:00 Calcium 9.3 mg/dL (8.4-10.2) 10/23/17 06:00 Total Bilirubin 0.3 mg/dl (0.2-1.3) 10/21/17 18:45 AST 29 U/L (14-36) 10/21/17 18:45 ALT 33 U/L (9-52) 10/21/17 18:45 Alkaline Phosphatase 56 U/L (38-126) 10/21/17 18:45 Troponin I < 0.0120 ng/mL (0.00-0.120) 10/21/17 18:45 Total Protein 7.4 G/DL (6.3-8.2) 10/21/17 18:45 Albumin 4.2 g/dL (3.5-5.0) 10/21/17 18:45 Globulin 3.2 gm/dL (2.2-3.9) 10/21/17 18:45 Albumin/Globulin Ratio 1.3 (1.0-2.1) 10/21/17 18:45 Vitamin B12 585 pg/mL (239-931) 10/22/17 06:25 25-OH Vitamin D Total 21.2 NG/ML (30.0-100.0) L 10/22/17 06:25 TSH 3rd Generation 1.59 mIU/ML (0.46-4.68) 10/22/17 06:25 Urine Color Yellow (YELLOW) 10/22/17:32 Urine Clarity Slighty-cloudy (Clear) 10/22/17: Urine pH 7.0 (5.0-8.0) 10/22/17: Ur Specific Early 1.044 (1.003-1.030) H 10/22/17: Urine Protein Negative mg/dL (NEGATIVE) 10/22/17: Urine Glucose (UA) Neg mg/dL (Normal) 10/22/17: Urine Ketones Negative mg/dL (NEGATIVE) 10/22/17: Urine Blood Negative (NEGATIVE) 10/22/17: Urine Nitrate Negative (NEGATIVE) 10/22/17: Urine Bilirubin Negative (NEGATIVE) 10/22/17: Urine Urobilinogen 0.2-1.0 mg/dL (0.2-1.0) 10/22/17 21:32 Ur Leukocyte Esterase Trace Dheeraj/uL (Negative) 10/22/17 21:32 Urine RBC (Auto) < 1 /hpf (0-3) 10/22/17 21:32 Urine Microscopic WBC 10 /hpf (0-5) H 10/22/17 21:32 Ur Squamous Epith Cells 1 /hpf (0-5) 10/22/17: Urine Bacteria Few (<OCC) H 10/22/17 21: Digoxin < 0.4 ng/mL (0.8-2.0) L 10/23/17 06:00 Urine Opiates Screen Negative (NEGATIVE) 10/22/17 21: Urine Methadone Screen Negative (NEGATIVE) 10/22/17 21:32 Ur Barbiturates Screen Positive (NEGATIVE) H 10/22/17 21:32 Valproic Acid 34.3 ug/mL (50.0-100.0) L 10/21/17 23:49 Ur Phencyclidine Scrn Negative (NEGATIVE) 10/22/17 21:32 Ur Amphetamines Screen Negative (NEGATIVE) 10/22/17 21:32 U Benzodiazepines Scrn Negative (NEGATIVE) 10/22/17 21:32 U Oth Cocaine Metabols Negative (NEGATIVE) 10/22/17 21:32 U Cannabinoids Screen Negative (NEGATIVE) 10/22/17 21:32 Alcohol, Quantitative < 10 mg/dl (0-10) 10/21/17 18:45 - Hospital Course Hospital Course: 62 years old female whose in 2017, now lives alone, with hx of HTN, DM II, and Depression, was brought to he ED because of an episode at the adult day care center with falling after getting up from a chair with LOC for seconds and had urinary incontinence. Here in the ED she again fell but with no LOC nor evidence of seizure activity. 1. Syncope. unclear etiology Seizure a possibility , pt had urinary incontinence during the episode , although on her last admission an EEG done on 09/08/17 showed no focal epileptiform disorder. Neuro consulted - rec Cardiac eval and to cont Depakote and Aspirin This could also be Orthostatic hypotension caused by medication ( pt is on 2 diuretics ) also noticed that glucose has been low on monitoring and she in on BID Metformin ( last hgba1c was 5.6) -Observed in the hosp[ital with telemetry monitoring - Consulted Dr Paz neurology - Consulted Dr Camara Psychiatry - cont Depakote - Cardio consulted - evaluated by Dr Boswell , felt that etiology of Syncope not cardiac - I also spoke with pt's Social Worker Aide - Dr Felix and Angus regarding pt, sent copy of EKGs done in the hospital w/c showed LBBB - pt had recent cardiac work up w/c was negative , coronaries were clean accdg to DR Greco and cleared pt fo d/c - ECHO: normal LV function , EF 65% -Carotid Sono: negative stenosis -CT of head : negative 2. Recurrent Falls - OT/PT consulted- rec [facility] placement however pt refused , refused also TCU , pt 's sister was at bedside who stated they will get somebody to be with pt 24 hour/day - Pt has a [employer] for 5 hours per day and also goes to an Adult Day Care program from 1-6pm - will order Home Physical therapy 3. DM II type II with episode of hypoglycemia - accucheck q ac hs -d/c Metformin as noted glucose=48 and Hgba1c done last month is 5.6 - pt should not be on meds 4. Depressive Disorder - Consulted Dr Camara- rec to decrease Klonopin to 0.5 mg bid and change Paxil to q hs 5. HTN -cont Coreg - d/c Spirinolactone #. DVT prophylaxis with Lovenox #. Code Status: Full, Surrogate decision maker is her son Osman Discharge Exam - Head Exam Head Exam: NORMAL INSPECTION, NORMOCEPHALIC - Eye Exam Eye Exam: EOMI, Normal appearance Pupil Exam: NORMAL ACCOMODATION - ENT Exam ENT Exam: Mucous Membranes Moist, Normal External Ear Exam - Neck Exam Neck exam: Full Rom - Respiratory Exam Respiratory Exam: NORMAL BREATHING PATTERN. absent: Respiratory Distress - Cardiovascular Exam Cardiovascular Exam: REGULAR RHYTHM, +S1, +S2 - GI/Abdominal Exam GI & Abdominal Exam: Normal Bowel Sounds, Soft. absent: Tenderness - Extremities Exam Extremities exam: full ROM, normal capillary refill, pedal pulses present - Back Exam Back exam: FULL ROM. absent: CVA tenderness (L), CVA tenderness (R), vertebral tenderness - Neurological Exam Neurological exam: Alert, CN II-XII Intact, Oriented x3, Reflexes Normal - Psychiatric Exam Psychiatric exam: Normal Affect, Normal Mood - Skin Skin Exam: Dry, Normal Color, Warm Discharge Plan - Follow Up Plan Condition: GOOD Disposition: HOME/ ROUTINE Instructions: Syncope (Fainting) Additional Instructions: ff up with Dr Paz in [address] Angus tovar for further cardiac work up ff up with Dr Crow tovar Home Physical therapy ( pt refused [facility]) cont Adult Day Care Program d/c Metformin as glucose readings low Referrals: Facundo Bazzi MD [Staff Provider] - Eduardo Paz MD [Medical Doctor] - Stefan Maria MD [Staff Provider] -
[2017-10-23 16:01] VITALS: BP 100/64; PULSE 73; TEMP 97.8; O2SAT 97
--- NOTE | 2017-10-24 05:25 | CON ---
DATE: CARDIOLOGY CONSULTATION REASON FOR CONSULTATION: Syncopal episode. HISTORY OF PRESENT ILLNESS: The patient is a 62-year-old female who has a history of seizure disorder who was admitted because of a fall episode and seizure activity. 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 There was no tongue biting. When the patient was asked about cardiac history, the patient stated that she was seen by Dr. Greco in a past and she underwent cardiac catheterization, but does not recall the findings, although she recalls that Dr. Greco mentioned that she does not need a pacemaker. SOCIAL HISTORY: Nonsmoker and nondrinker. Her son lives [place]. She lives by herself. MEDICATIONS: Coreg 25 mg twice a day, Depakote 500 mg twice a day, digoxin 0.125 mg daily, aspirin 81 mg once a day, Elavil 50 mg at bedtime, Lipitor 10 mg once a day, Lovenox 40 mg subcutaneously once a day, and aspirin 650 mg every 4 hours p.r.n. REVIEW OF SYSTEMS: No nausea or vomiting. No fever or chills. No retrosternal chest pain. PHYSICAL EXAMINATION: GENERAL: The patient is a middle-age female who does not appear to be in any distress. VITAL SIGNS: Blood pressure 118/74, heart rate 79, temperature 97.4, and respirations 18. HEENT: Normocephalic. CHEST: Clear. HEART: S1 and S2 regular. ABDOMEN: Soft. EXTREMITIES: No pedal edema. Bruising around both elbows. LABORATORY DATA: Hemoglobin and hematocrit are 11.3 and 31.5. White count and platelet count are within normal limits. SMA-7; sodium 137, potassium 4, chloride 95, CO2 29, glucose 102, BUN 14, and creatinine 0.6. Urine drug screen was positive for barbiturates and valproic acid. Alcohol is below 10. Digoxin below 0.4. Echocardiographic study revealed normal left ventricular size, wall thickness and ejection fraction, mild tricuspid insufficiency. EKG revealed normal sinus rhythm with left bundle-branch block. Carotid ultrasound, normal duplex of cervical carotid and vertebral arteries. Head and neck CT angio, calcified plaque changes, left carotid bifurcation with narrowing estimated approximately 50% to 60%. The cerebellar artery circulation is patent with no evidence of occlusion or significant stenosis. No evidence of large aneurysm nor vascular malformation. EKG done last month in 09/04/2017 revealed normal sinus rhythm with nonspecific anterior T wave changes. There was no left bundle-branch block at that time. Troponin on admission less than 0.012. ASSESSMENT: 1. New onset left bundle-branch block. 2. Syncopal episode versus seizure, the clinical scenario favors seizure disorder more than cardiac syncope. 3. Diabetes mellitus. RECOMMENDATIONS: Continue current subcutaneous Lovenox 40 mg once a day, Lipitor 10 mg once a day, Elavil 5 mg once a day, aspirin 81 mg once a day, digoxin 0.125 mg daily, and Coreg 25 mg twice a day. We will discuss with the medical team if we can transfer the cardiac service to Dr. Greco, the requirements analyst and he may have some information about her cardiac history. It is not available to us here and [facility] database. Peter Boswell MD
== END 2017-10-23 16:55 | disposition home or self-care (01) ==
LOC: H.ER 16:51 → H.ERHOLD 21:36 → H.TEL 22:58
PROVIDERS: ADMIT Internal Medicine; ATTEND Internal Medicine
DX: R55 Syncope and collapse (principal); F33.1 Major depressive disorder, recurrent, moderate; I10 Essential (primary) hypertension; E11.649 Type 2 diabetes mellitus with hypoglycemia without coma; E78.00 Pure hypercholesterolemia, unspecified; F03.90 Unspecified dementia, unspecified severity, without behavioral disturbance, psychotic disturbance, mood disturbance, and anxiety; G40.909 Epilepsy, unspecified, not intractable, without status epilepticus; I44.7 Left bundle-branch block, unspecified; R29.6 Repeated falls; R32 Unspecified urinary incontinence; I65.22 Occlusion and stenosis of left carotid artery; M81.0 Age-related osteoporosis without current pathological fracture; M19.90 Unspecified osteoarthritis, unspecified site; E78.5 Hyperlipidemia, unspecified; G43.909 Migraine, unspecified, not intractable, without status migrainosus; H54.61 Unqualified visual loss, right eye, normal vision left eye
CPT/HCPCS: 36415; 70450; 70496; 70498; 71045; 80048; 80053; 80162; 80164; 81003; 82306; 82607; 82948; 83036; 84425; 84443; 84484; 85025; 85027; 87086; 93005; 93306; 93880; 95816; 97116; 97161; 97530; 99285; G0378; G0480; G8978; G8979; J1650; Q9967

== ENCOUNTER 2018-01-22 00:17 | Observation (INO) | payer MEDICARE, MEDICAID ==
[2018-01-22] MEDS ORDERED: Sodium Chloride 0.9% 1,000 ML IV STA (00:28)
--- NOTE | 2018-01-22 01:07 | ED PDOC ---
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 Patient was recently worked up for possible seizure, but had negative results. On discharge, ED provider felt she had suffered from orthostatic htn due to polypharmacy. Today, patient was brought in by EMS after shew as found sitting on her floor at home. She did not volunteer much information to provider but she appears excrement depressed with flat affect. Patient has been asking for her . Provider is familiar with who recently . PMD: Dr. Maria Past Medical History Reviewed: Historical Data, Nursing Documentation, Vital Signs Vital Signs: Last Vital Signs Temp 98.1 F 01/22/18 00:19 Pulse 96 H 01/22/18 00:19 Resp 16 01/22/18 00:19 BP 127/73 01/22/18 00:19 Pulse Ox 99 01/22/18 00:19 - Medical History PMH: Anxiety (as per patient), CAD (as per day care center facesheet), Dementia (as per day care center facesheet), Depression, Diabetes, HTN, Hypercholesterolemia, Migraine, Osteoporosis, Schizophrenia (as per daycare center facesheet), Seizures (as per day care center facesheet) Denies: Hepatitis, HIV, Chronic Kidney Disease, Sexually Transmitted Disease - Family History Family History: States: Unknown Family Hx - Home Medications Home Medications: Ambulatory Orders Medication Instructions Recorded Atorvastatin [Lipitor] 10 mg PO HS 09/04/17 Calcium/Mag/D3/B12/FA/B6/[place] 1 tab PO DAILY 09/04/17 [Folgard Os Tablet] Carvedilol [Coreg] 25 mg PO Q12 09/04/17 Digoxin [Digitek] 125 mcg PO DAILY 09/04/17 Ergocalciferol (Vitamin D2) 50,000 unit PO QWK 09/04/17 [Vitamin D2] Spironolactone [Aldactone] 25 mg PO DAILY 09/04/17 Aspirin [Adult Low Dose Aspirin EC] 81 mg PO DAILY 09/05/17 Omeprazole 40 mg PO DAILY 09/05/17 Divalproex [Depakote DR(*BID*)] 500 mg PO BID #60 tcp 09/09/17 Acetaminophen [Tylenol 325mg tab] 650 mg PO Q4 PRN tab 10/23/17 PARoxetine [Paxil] 40 mg PO HS tab 10/23/17 Pantoprazole [Protonix EC Tab] 40 mg PO DAILY ect 10/23/17 clonazePAM [Klonopin] 0.5 mg PO Q12 tab 10/23/17 - Allergies Allergies/Adverse Reactions: Allergies Allergy/AdvReac Type Severity Reaction Status Date / Time No Known Allergies Allergy Verified 01/22/18 00:19 Review of Systems ROS Statement: Except As Marked, All Systems Reviewed And Found Negative Neurological: Positive for: Other (near syncope) Psych: Positive for: Depression Physical Exam - Reviewed Nursing Documentation Reviewed: Yes Vital Signs Reviewed: Yes - Physical Exam Appears: Positive for: Non-toxic, No Acute Distress Head Exam: Positive for: ATRAUMATIC Skin: Positive for: Warm, Dry, Pallor Eye Exam: Positive for: EOMI, Normal appearance, PERRL ENT: Positive for: Other (no bite marie on tongue) Neck: Positive for: Normal, Painless ROM Cardiovascular/Chest: Positive for: Regular Rate, Rhythm. Negative for: Murmur Respiratory: Positive for: Normal Breath Sounds. Negative for: Respiratory Distress Gastrointestinal/Abdominal: Positive for: Normal Exam, Soft. Negative for: Tenderness Neurologic/Psych: Positive for: Alert, Other (Flat affect, patient would not respond to providers questions when he attempted to asses patient ) - Laboratory Results Result Diagrams: 01/22/18 00:34 01/22/18 00:34 - ECG O2 Sat by Pulse Oximetry: 99 (RA) Pulse Ox Interpretation: Normal Medical Decision Making Medical Decision Making: Time: 00:27 Initial Impression: 62 year old with near syncopal event and clinical depression Initial Plan: 00:27 --Labs --Head CT --Crisis evaluation Time: 2:[address]: FINDINGS: Brain: There is mild diffuse heterogeneity of the white matter attenuation, consistent with chronic white matter ischemic changes. No hemorrhage. Ventricles: Unremarkable. No ventriculomegaly. Bones/joints: Unremarkable. No acute fracture. Soft tissues: Unremarkable. Sinuses: Unremarkable as visualized. No acute sinusitis. Mastoid air cells: Unremarkable as visualized. No mastoid effusion. IMPRESSION: No acute findings. Time: 2:55 --Labs demonstrated no clinically significant results. In providers opinion, patient is likely acutely depressed secondary to grief from recent expiration of . However given complex medical history, patient will be placed on observation for syncopal episodes under Dr. Moss, hospitalist, covering Dr. Maria Scribe Attestation: Documented by Evelyne Hogan, acting as a scribe for Khoa Steele MD Provider Scribe Attestation: All medical record entries made by the Scribe were at my direction and personally dictated by me. I have reviewed the chart and agree that the record accurately reflects my personal performance of the history, physical exam, medical decision making, and the department course for this patient. I have also personally directed, reviewed, and agree with the discharge instructions and disposition. Disposition - Clinical Impression Clinical Impression: Syncope - Patient ED Disposition Is Patient to be Admitted: Yes Discussed With : Vicyk Moss - Disposition Disposition Time: 02:55 Condition: STABLE
[2018-01-22 01:09] LABS: ALB/GLOB RATIO 1.4 (1.0-2.1); ALBUMIN 4.3 g/dL (3.5-5.0); ALT/SGPT 23 U/L (9-52); AST/SGOT 34 U/L (14-36); BLOOD UREA NITROGEN 13 mg/dl (7-17); CALCIUM 9.3 mg/dL (8.4-10.2); GFR NON-AFRICAN AMERICAN > 60
[2018-01-22 01:38] LABS: BASO # 0.1 K/uL (0.0-0.2); EOS # 0.1 K/uL (0.0-0.7); HEMOGLOBIN 11.5 g/dL (12.0-16.0); LYMPH # 3.8 K/uL (1.0-4.3); LYMPH % 48.5 % (20.0-40.0); MEAN CELL VOLUME 80.9 fl (81.0-99.0); MEAN CORPUSCULAR HEMOGLOBIN 29.1 pg (27.0-31.0); MEAN PLATELET VOLUME 7.4 fl (7.2-11.7); MONO # 0.7 K/uL (0.0-0.8); MONO % 9.4 % (0.0-10.0); NEUT # 3.2 K/uL (1.8-7.0); NEUT % 40.1 % (50.0-75.0); NRBC % 0.1 % (0.0-0.0); RBC 3.94 Mil/uL (3.80-5.20); RED CELL DISTRIBUTION WIDTH 14.5 % (11.5-14.5); WHITE BLOOD COUNT 7.9 K/uL (4.8-10.8)
--- NOTE | 2018-01-22 03:53 | CP.PCM.HP ---
History of Present Illness - History of Present Illness History of Present Illness: CC: fall 62 years old female whose in 2017, now lives alone, with hx of HTN, DM II, CHF, afib? and depression with prior admission to pysch unit presents to the ED after a fall. History is per the ED as patient is refusing to answer questions at this time. She is awake, alert, making eye contact. She reported to the ED that she felt she was going to fall and let herself down slowly, stating she may have hit her head. CT was negative for any acute findings. Patient to be admitted to obs for presyncope, as well as evaluation by psychiatry for consideration of benefit of inpatient psych. Will hold centrally acting agents except paxil to avoid rebound. Patient was recently admitted in September for full syncope workup. HD stable, NAD. ROS: unable to obtain as patient is not answering questions at this time PMD: DR. NUÑEZ PMH: AFIB? Dementia, Major Depression, DM II; HTN, HLD; Seizure? ; Ossteoporesis; Osteoarthritis; Migraine; Congenital right eye blindness PSH; Denies SH: ; Lives alone with Health Aide daily for 5hrs; attends Adult Day Care daily; Never Smoked; no Alcohol use; No illegal drug use FH: States: Unknown Family Hx Allergies: NKDA Medication: Reviewed Present on Admission - Present on Admission Any Indicators Present on Admission: No Past Patient History - Infectious Disease Hx of Infectious Diseases: None - Past Medical History & Family History Past Medical History?: Yes - Past Social History Smoking Status: Never Smoked - CARDIAC Hx Hypercholesterolemia: Yes Hx Hypertension: Yes - PULMONARY Hx Respiratory Disorders: No Hx Tuberculosis: No - NEUROLOGICAL Hx Neurological Disorder: Yes - HEENT Hx HEENT Problems: Yes Hx Blind: Yes (congenital right eye blindness) - RENAL Hx Chronic Kidney Disease: No - ENDOCRINE/METABOLIC Hx Endocrine Disorders: Yes Hx Diabetes Mellitus Type 2: Yes - HEMATOLOGICAL/ONCOLOGICAL Hx Human Immunodeficiency Virus (HIV): No - INTEGUMENTARY Hx Dermatological Problems: No - MUSCULOSKELETAL/RHEUMATOLOGICAL Hx Musculoskeletal Disorders: Yes - GASTROINTESTINAL Hx Gastrointestinal Disorders: No - GENITOURINARY/GYNECOLOGICAL Hx Sexually Transmitted Disorders: No - PSYCHIATRIC Hx Psychophysiologic Disorder: Yes - SURGICAL HISTORY Hx Surgeries: No - ANESTHESIA Hx Anesthesia: No Meds Allergies/Adverse Reactions: Allergies Allergy/AdvReac Type Severity Reaction Status Date / Time No Known Allergies Allergy Verified 01/22/18 00:19 Physical Exam - Constitutional Appears: Non-toxic, No Acute Distress - Head Exam Head Exam: ATRAUMATIC, NORMOCEPHALIC - Eye Exam Eye Exam: EOMI, Normal appearance - ENT Exam ENT Exam: Mucous Membranes Moist, Normal Oropharynx - Respiratory Exam Respiratory Exam: Clear to Auscultation Bilateral, NORMAL BREATHING PATTERN - Cardiovascular Exam Cardiovascular Exam: RRR, +S1, +S2 - GI/Abdominal Exam GI & Abdominal Exam: Normal Bowel Sounds, Soft. absent: Mass, Organomegaly - Extremities Exam Extremities exam: Positive for: normal capillary refill, pedal pulses present - Back Exam Back exam: absent: CVA tenderness (L), CVA tenderness (R) - Neurological Exam Neurological exam: Alert, Reflexes Normal - Psychiatric Exam Psychiatric exam: Depressed, Flat Affect - Skin Skin Exam: Dry, Warm Results - Vital Signs Recent Vital Signs: Last Vital Signs Temp 98.1 F 01/22/18 00:19 Pulse 83 01/22/18 03:42 Resp 15 01/22/18 03:42 BP 127/72 01/22/18 03:42 Pulse Ox 100 01/22/18 03:21 - Labs Result Diagrams: 01/22/18 00:34 01/22/18 00:34 Labs: Laboratory Results - last 24 hr 01/22/18 01/22/18 01/22/18 00:33 00:34 00:34 WBC 7.9 RBC 3.94 Hgb 11.5 L Hct 31.8 L MCV 80.9 L D MCH 29.1 MCHC 36.0 RDW 14.5 Plt Count 220 MPV 7.4 Neut % (Auto) 40.1 L Lymph % (Auto) 48.5 H [place] % (Auto) 9.4 Eos % (Auto) 1.0 Baso % (Auto) 1.0 Neut # (Auto) 3.2 Lymph # (Auto) 3.8 [place] # (Auto) 0.7 Eos # (Auto) 0.1 Baso # (Auto) 0.1 Sodium 134 Potassium 3.9 Chloride 93 L Carbon Dioxide 29 Anion Gap 16 BUN 13 Creatinine 0.7 Est GFR ( Amer) > 60 Est GFR (Non-Af Amer) > 60 POC Glucose (mg/dL) 94 Random Glucose 96 Lactic Acid Calcium 9.3 Total Bilirubin 0.5 AST 34 ALT 23 Alkaline Phosphatase 56 Troponin I < 0.0120 Total Protein 7.4 Albumin 4.3 Globulin 3.0 Albumin/Globulin Ratio 1.4 Digoxin Valproic Acid 01/22/18 01/22/18 01/22/18 00:34 00:34 01:15 WBC RBC Hgb Hct MCV MCH MCHC RDW Plt Count MPV Neut % (Auto) Lymph % (Auto) [place] % (Auto) Eos % (Auto) Baso % (Auto) Neut # (Auto) Lymph # (Auto) [place] # (Auto) Eos # (Auto) Baso # (Auto) Sodium Potassium Chloride Carbon Dioxide Anion Gap BUN Creatinine Est GFR ( Amer) Est GFR (Non-Af Amer) POC Glucose (mg/dL) Random Glucose Lactic Acid 1.6 Calcium Total Bilirubin AST ALT Alkaline Phosphatase Troponin I Total Protein Albumin Globulin Albumin/Globulin Ratio Digoxin 0.5 L Valproic Acid 42.4 L Assessment & Plan - Assessment and Plan (Free Text) Plan: 62 years old female whose in 2017, now lives alone, with hx of HTN, DM II, CHF, afib? and depression with prior admission to pysch unit presents to the ED after a fall. History is per the ED as patient is refusing to answer questions at this time. She is awake, alert, making eye contact. She reported to the ED that she felt she was going to fall and let herself down slowly, stating she may have hit her head. CT was negative for any acute findings. Patient to be admitted to obs for presyncope, as well as evaluation by psychiatry for consideration of benefit of inpatient psych. Will hold centrally acting agents except paxil to avoid rebound. Patient was recently admitted in September for full syncope workup. HD stable, NAD. Presyncope Severe Depression Dementia hold all centrally acting agents patient was worked up for syncope 3 months ago, OBS continue Paxil to avoid rebound Psych consult with Dr. Camara, severe depression, considering of benefit of inpatient psych treatment as this is the third eval CT head was negative pt was evaluated for L Carotid Stenosis, but was not thought to be the cause of syncope. Dopplers were negative. UA and UCx ordered. CHF HTN HLD Afib continue ASA, Lipitor, Coreg, Digoxin, Spironolactone all chronic conditions stable at this time LBBB baseline rate controlled Dig level 0.5
[2018-01-22] MEDS ORDERED: Ergocalciferol 50,000 Intl Units Cap PO SCH (04:00)
[2018-01-22 06:21] LABS: HEMOGLOBIN 11.6 g/dL (12.0-16.0); MEAN CELL VOLUME 81.4 fl (81.0-99.0); MEAN CORPUSCULAR HEMOGLOBIN 29.5 pg (27.0-31.0); MEAN CORPUSCULAR HGB CONC 36.2 g/dL (33.0-37.0); RBC 3.94 Mil/uL (3.80-5.20); RED CELL DISTRIBUTION WIDTH 14.4 % (11.5-14.5)
[2018-01-22 06:33] LABS: BLOOD UREA NITROGEN 11 mg/dl (7-17); CALCIUM 8.9 mg/dL (8.4-10.2); GFR NON-AFRICAN AMERICAN > 60
[2018-01-22] MEDS ORDERED: Divalproex 500 mg DR(BID formulation) PO SCH (09:00)
[2018-01-22] MEDS ORDERED: [UNRECOGNIZED DRUG - OTHER] PO SCH (09:00)
[2018-01-22] MEDS ORDERED: BORON PO SCH (09:00)
[2018-01-22] MEDS ORDERED: CALCIUM PO SCH (09:00)
[2018-01-22] MEDS ORDERED: D3 PO SCH (09:00)
[2018-01-22] MEDS ORDERED: MAG PO SCH (09:00)
[2018-01-22] MEDS ORDERED: B6 PO SCH (09:00)
[2018-01-22] MEDS ORDERED: B12 PO SCH (09:00)
[2018-01-22] MEDS: Enoxaparin 40 mg Syringe SC SCH (09:21)
[2018-01-22] MEDS: Pantoprazole 40 mg EC Tab PO SCH (09:22)
[2018-01-22] MEDS: Digoxin 125 mcg (0.125 mg) Tab PO SCH (09:22)
--- NOTE | 2018-01-22 12:19 | PCM.RRT ---
CASTING CARRIER Nurse Assessment - Situation CASTING CARRIER Reason for Call: Change in Mental Status - IV IV Inserted during CASTING CARRIER?: No - Respiratory Oxygen Delivery Method: Nasal Cannula I.Reason for CASTING CARRIER - A) Acute Change in Patient: (Select all that apply): Staff member or family is worried about patient, Acute change in mental status Subjective: 62 Y/O female with PMHx of HTN, DM II, CHF, and major depression, seizure passed out in the bathroom. CASTING CARRIER was called. Patient taken to bed. Initial vitals 150/85, Pulse 93, SPO2 100, finger stick glucose 130. Patient regained consciousness after 20-30 sec, confused, kept starring for few seconds , unable to communicate verbally. Possible seicure like activity. Ativan 1 mg IVP administered. Repeted BP after 5 mins 123/70, HR 87. EKG stat obtained showed NSR with no acute ST changes. CT head W/O contrast to rule out any IC bleeding. Dr. Peralta(Neurologist) consulted. Patient taken for imaging. Patient to remain in Tele. - Neurological Status (Select all that apply): Alert, Disoriented, Confused. absent: Oriented, Verbal , Follows Commands - Respiratory Oxygen Delivery Method: Nasal Cannula @L/min - Constitutional Appears: Non-toxic, Confused - Head Head Exam: ATRAUMATIC, NORMAL INSPECTION, NORMOCEPHALIC - Eyes Eye Exam: EOMI, Normal appearance, PERRL - Respiratory Exam Respiratory Exam: Clear to Ausculation Bilateral, NORMAL BREATHING PATTERN. absent: Rales, Rhonchi, Wheezes, Respiratory Distress - Cardiovascular Exam Cardiovascular Exam: REGULAR RHYTHM, +S1, +S2. absent: Murmur - Neurological Exam Neurological Exam: Alert, Awake. absent: Oriented x3 Plan - Assessment of Findings&Treatment Plan 62 Y/O female with PMHx of HTN, DM II, CHF, and major depression, seizure passed out in the bathroom - Possible seizure like activity - EKG NSR, No acute ST changes - Ativan 1 mg IVP STAT - CT head W/O contrast - Dr. Peralta, Neurologist consult on board - Patient to remain in Tele.
--- NOTE | 2018-01-22 12:23 | CARD ---
APPROVED REPORT Date of service: 01/22/2018 EKG Measurement Heart [id number] <Conclusion> Normal sinus rhythm Left bundle branch block Abnormal ECG
--- NOTE | 2018-01-22 12:28 | CARD ---
APPROVED REPORT Date of service: 01/22/2018 EKG Measurement Heart [id number] <Conclusion> Normal sinus rhythm Left bundle branch block Abnormal ECG
--- NOTE | 2018-01-22 12:43 | CT ---
Date of service: 01/22/2018 PROCEDURE: CT HEAD WITHOUT CONTRAST. HISTORY: syncope COMPARISON: 10/21/2017. CT head TECHNIQUE: Axial computed tomography images were obtained through the head/brain without intravenous contrast. Coronal and sagittal reconstructed images. Radiation dose: Total exam DLP = 686.39 mGy-cm. This CT exam was performed using one or more of the following dose reduction techniques: Automated exposure control, adjustment of the mA and/or kV according to patient size, and/or use of iterative reconstruction technique. FINDINGS: HEMORRHAGE: No intracranial hemorrhage. BRAIN: No mass effect or edema. No atrophy or chronic microvascular ischemic changes. VENTRICLES: Unremarkable. No hydrocephalus. CALVARIUM: Unremarkable. PARANASAL SINUSES: Unremarkable as visualized. No significant inflammatory changes. MASTOID AIR CELLS: Unremarkable as visualized. No inflammatory changes. OTHER FINDINGS: None. IMPRESSION: No acute intracranial abnormalities. No significant findings to account for the clinical presentation. Concordant results (preliminary interpretation) provided by [facility]. Procedure Completed: 01:08. Preliminary ([facility]) Report: Dictated and Authenticated: 02:25. Final Interpretation: 12:41. January 22, 2018.
--- NOTE | 2018-01-22 14:02 | CP.PCM.CON ---
History of Present Illness - History of Present Illness History of Present Illness: pt is a 62 years old female whose in 2017, now lives alone, with hx of HTN, DM II, CHF, afib and depression with prior admission to geriatric pysch unit presents to the ED after a fall. As per the ED report the patient has been refusing to answer questions On evaluation, pt presenting with depressed mood and affect, speech is under productive with partial eye contact. pt reported feeling worried about her current medical condition, believes she may be having seizures, stated she has been lonely since her and also has been partially compliant with her psychiatric follow up and medications. pt reported decreased sleep and appetite , denied manic or psychotic symptoms Past Patient History - Infectious Disease Hx of Infectious Diseases: None - Past Medical History & Family History Past Medical History?: Yes - Past Social History Smoking Status: Never Smoked - CARDIAC Hx Hypercholesterolemia: Yes Hx Hypertension: Yes - PULMONARY Hx Respiratory Disorders: No Hx Tuberculosis: No - NEUROLOGICAL Hx Dementia: Yes (as per day care center facesheet) Hx Migraine: Yes Hx Seizures: Yes (as per day care center facesheet) - HEENT Hx HEENT Problems: Yes Hx Blind: Yes (congenital right eye blindness) - RENAL Hx Chronic Kidney Disease: No - ENDOCRINE/METABOLIC Hx Endocrine Disorders: Yes Hx Diabetes Mellitus Type 2: Yes - HEMATOLOGICAL/ONCOLOGICAL Hx Human Immunodeficiency Virus (HIV): No - INTEGUMENTARY Hx Dermatological Problems: No - MUSCULOSKELETAL/RHEUMATOLOGICAL Hx Osteoporosis: Yes - GASTROINTESTINAL Hx Gastrointestinal Disorders: No - GENITOURINARY/GYNECOLOGICAL Hx Sexually Transmitted Disorders: No - PSYCHIATRIC Hx Anxiety: Yes (as per patient) Hx Depression: Yes Hx Schizophrenia: Yes (as per daycare center facesheet) - SURGICAL HISTORY Hx Surgeries: No - ANESTHESIA Hx Anesthesia: No Meds Allergies/Adverse Reactions: Allergies Allergy/AdvReac Type Severity Reaction Status Date / Time No Known Allergies Allergy Verified 01/22/18 00:19 - Medications Medications: Current Medications Acetaminophen (Tylenol 325mg Tab) 650 mg PO Q6 PRN PRN Reason: Pain, Mild (1-3) Aspirin (Ecotrin) 81 mg PO DAILY [facility] Last Admin: 01/22/18 09:22 Dose: 81 mg Atorvastatin Calcium (Lipitor) 10 mg PO HS [facility] Carvedilol (Coreg) 25 mg PO Q12 [facility] Last Admin: 01/22/18 09:22 Dose: 25 mg Digoxin (Digoxin) 0.125 mg PO DAILY [facility] Last Admin: 01/22/18 09:22 Dose: 0.125 mg Enoxaparin Sodium (Lovenox) 40 mg SC DAILY [facility] PRN Reason: Protocol Last Admin: 01/22/18 09:21 Dose: 40 mg Ergocalciferol (Drisdol 50,000 Intl Units Cap) 1 cap PO QWK [facility] Pantoprazole Sodium (Protonix Ec Tab) 40 mg PO DAILY [facility] Last Admin: 01/22/18 09:22 Dose: 40 mg Paroxetine HCl (Paxil) 40 mg PO HS [facility] Spironolactone (Aldactone) 25 mg PO DAILY [facility] Last Admin: 01/22/18 09:22 Dose: 25 mg Physical Exam - Psychiatric Exam Additional comments: pt seen in bed underproductive speech, soft and slow, poor eye contact mood depressed affect constricted, alert awake oriented to person and place, denied suicidal or homicidal ideation denied perceptual disturbances Results - Vital Signs Recent Vital Signs: Last Vital Signs Temp 97.8 F 01/22/18 12:58 Pulse 82 01/22/18 12:58 Resp 20 01/22/18 12:58 BP 104/56 L 01/22/18 12:58 Pulse Ox 100 01/22/18 12:58 - Labs Result Diagrams: 01/22/18 05:35 01/22/18 05:35 Labs: Laboratory Results - last 24 hr 01/22/18 01/22/18 01/22/18 00:33 00:34 00:34 WBC 7.9 RBC 3.94 Hgb 11.5 L Hct 31.8 L MCV 80.9 L D MCH 29.1 MCHC 36.0 RDW 14.5 Plt Count 220 MPV 7.4 Neut % (Auto) 40.1 L Lymph % (Auto) 48.5 H [place] % (Auto) 9.4 Eos % (Auto) 1.0 Baso % (Auto) 1.0 Neut # (Auto) 3.2 Lymph # (Auto) 3.8 [place] # (Auto) 0.7 Eos # (Auto) 0.1 Baso # (Auto) 0.1 Sodium 134 Potassium 3.9 Chloride 93 L Carbon Dioxide 29 Anion Gap 16 BUN 13 Creatinine 0.7 Est GFR ( Amer) > 60 Est GFR (Non-Af Amer) > 60 POC Glucose (mg/dL) 94 Random Glucose 96 Lactic Acid Calcium 9.3 Total Bilirubin 0.5 AST 34 ALT 23 Alkaline Phosphatase 56 Troponin I < 0.0120 Total Protein 7.4 Albumin 4.3 Globulin 3.0 Albumin/Globulin Ratio 1.4 Digoxin Valproic Acid 01/22/18 01/22/18 01/22/18 00:34 00:34 01:15 WBC RBC Hgb Hct MCV MCH MCHC RDW Plt Count MPV Neut % (Auto) Lymph % (Auto) [place] % (Auto) Eos % (Auto) Baso % (Auto) Neut # (Auto) Lymph # (Auto) [place] # (Auto) Eos # (Auto) Baso # (Auto) Sodium Potassium Chloride Carbon Dioxide Anion Gap BUN Creatinine Est GFR ( Amer) Est GFR (Non-Af Amer) POC Glucose (mg/dL) Random Glucose Lactic Acid 1.6 Calcium Total Bilirubin AST ALT Alkaline Phosphatase Troponin I Total Protein Albumin Globulin Albumin/Globulin Ratio Digoxin 0.5 L Valproic Acid 42.4 L 01/22/18 01/22/18 01/22/18 05:35 05:35 11:54 WBC 8.0 RBC 3.94 Hgb 11.6 L Hct 32.1 L MCV 81.4 MCH 29.5 MCHC 36.2 RDW 14.4 Plt Count 210 MPV Neut % (Auto) Lymph % (Auto) [place] % (Auto) Eos % (Auto) Baso % (Auto) Neut # (Auto) Lymph # (Auto) [place] # (Auto) Eos # (Auto) Baso # (Auto) Sodium 136 Potassium 4.0 Chloride 96 L Carbon Dioxide 28 Anion Gap 16 BUN 11 Creatinine 0.6 L Est GFR ( Amer) > 60 Est GFR (Non-Af Amer) > 60 POC Glucose (mg/dL) 130 H Random Glucose 92 Lactic Acid Calcium 8.9 Total Bilirubin AST ALT Alkaline Phosphatase Troponin I Total Protein Albumin Globulin Albumin/Globulin Ratio Digoxin Valproic Acid Assessment & Plan - Assessment and Plan (Free Text) Assessment: major depression recurrent Plan: discussed with pt admission to psychiatry upon medical clearence for medication stabilization for depression, pt agreed continue with paxil, lower gradually to 20mg for anticholoinergic side effect
[2018-01-23 07:51] LABS: SQUAMOUS EPITHIAL 1 /hpf (0-5); URINE BILIRUBIN NEGATIVE (NEGATIVE); URINE BLOOD NEGATIVE (NEGATIVE); URINE CLARITY CLEAR (Clear); URINE COLOR STRAW (YELLOW); URINE GLUCOSE (UA) NEG (Normal); URINE LEUKOCYTE ESTERASE TRACE Leu/uL (Negative); URINE PROTEIN NEGATIVE (NEGATIVE); URINE UROBILINOGEN 0.2-1.0 mg/dL (0.2-1.0)
--- NOTE | 2018-01-23 09:11 | CT ---
Date of service: 01/22/2018 PROCEDURE: CT HEAD WITHOUT CONTRAST. HISTORY: Possible seizure/ R/o IC bleeing COMPARISON: January 22, 2018. . Study completed 01:08. TECHNIQUE: Axial computed tomography images were obtained through the head/brain without intravenous contrast. Radiation dose: Total exam DLP = 794.99 mGy-cm. This CT exam was performed using one or more of the following dose reduction techniques: Automated exposure control, adjustment of the mA and/or kV according to patient size, and/or use of iterative reconstruction technique. FINDINGS: HEMORRHAGE: No intracranial hemorrhage. BRAIN: No mass effect or edema. No atrophy or chronic microvascular ischemic changes. VENTRICLES: Unremarkable. No hydrocephalus. CALVARIUM: Unremarkable. PARANASAL SINUSES: Unremarkable as visualized. No significant inflammatory changes. MASTOID AIR CELLS: Unremarkable as visualized. No inflammatory changes. OTHER FINDINGS: None. IMPRESSION: No acute intracranial abnormalities. No significant findings to account for the clinical presentation. No significant interval change compared to the prior examination(s).
[2018-01-23] MEDS: Enoxaparin 40 mg Syringe SC SCH (09:15)
[2018-01-23 09:17] VITALS: PULSE 73
[2018-01-23] MEDS: Pantoprazole 40 mg EC Tab PO SCH (09:17)
[2018-01-23] MEDS: Digoxin 125 mcg (0.125 mg) Tab PO SCH (09:17)
--- NOTE | 2018-01-23 14:02 | CP.PCM.DIS ---
Provider - Provider Date of Admission: 01/22/18 02:52 Attending physician: Vicky Moss DO Primary care physician: Stefan Maria MD Consults: Dr. Camara- psychiatry Dr. Peralta- neurology Time Spent in preparation of Discharge (in minutes): 15 Hospital Course - Lab Results Lab Results: Most Recent Lab Values WBC 8.0 K/uL (4.8-10.8) 01/22/18 05:35 RBC 3.94 Mil/uL (3.80-5.20) 01/22/18 05:35 Hgb 11.6 g/dL (12.0-16.0) L 01/22/18 05:35 Hct 32.1 % (34.0-47.0) L 01/22/18 05:35 MCV 81.4 fl (81.0-99.0) 01/22/18 05:35 MCH 29.5 pg (27.0-31.0) 01/22/18 05:35 MCHC 36.2 g/dL (33.0-37.0) 01/22/18 05:35 RDW 14.4 % (11.5-14.5) 01/22/18 05:35 Plt Count 210 K/uL (130-400) 01/22/18 05:35 MPV 7.4 fl (7.2-11.7) 01/22/18 00:34 Neut % (Auto) 40.1 % (50.0-75.0) L 01/22/18 00:34 Lymph % (Auto) 48.5 % (20.0-40.0) H 01/22/18 00:34 [place] % (Auto) 9.4 % (0.0-10.0) 01/22/18 00:34 Eos % (Auto) 1.0 % (0.0-4.0) 01/22/18 00:34 Baso % (Auto) 1.0 % (0.0-2.0) 01/22/18 00:34 Neut # (Auto) 3.2 K/uL (1.8-7.0) 01/22/18 00:34 Lymph # (Auto) 3.8 K/uL (1.0-4.3) 01/22/18 00:34 [place] # (Auto) 0.7 K/uL (0.0-0.8) 01/22/18 00:34 Eos # (Auto) 0.1 K/uL (0.0-0.7) 01/22/18 00:34 Baso # (Auto) 0.1 K/uL (0.0-0.2) 01/22/18 00:34 Sodium 136 mmol/l (132-148) 01/22/18 05:35 Potassium 4.0 MMOL/L (3.6-5.0) 01/22/18 05:35 Chloride 96 mmol/L (98-107) L 01/22/18 05:35 Carbon Dioxide 28 mmol/L (22-30) 01/22/18 05:35 Anion Gap 16 (10-20) 01/22/18 05:35 BUN 11 mg/dl (7-17) 01/22/18 05:35 Creatinine 0.6 mg/dl (0.7-1.2) L 01/22/18 05:35 Est GFR ( Amer) > 60 01/22/18 05:35 Est GFR (Non-Af Amer) > 60 01/22/18 05:35 POC Glucose (mg/dL) 130 mg/dL (65-110) H 01/22/18 11:54 Random Glucose 92 mg/dL (65-105) 01/22/18 05:35 Lactic Acid 1.6 MMOL/L (0.7-2.1) 01/22/18 00:34 Calcium 8.9 mg/dL (8.4-10.2) 01/22/18 05:35 Total Bilirubin 0.5 mg/dl (0.2-1.3) 01/22/18 00:34 AST 34 U/L (14-36) 01/22/18 00:34 ALT 23 U/L (9-52) 01/22/18 00:34 Alkaline Phosphatase 56 U/L (38-126) 01/22/18 00:34 Troponin I < 0.0120 ng/mL (0.00-0.120) 01/22/18 00:34 Total Protein 7.4 G/DL (6.3-8.2) 01/22/18 00:34 Albumin 4.3 g/dL (3.5-5.0) 01/22/18 00:34 Globulin 3.0 gm/dL (2.2-3.9) 01/22/18 00:34 Albumin/Globulin Ratio 1.4 (1.0-2.1) 01/22/18 00:34 Urine Color Straw (YELLOW) 01/23/18 04:07 Urine Clarity Clear (Clear) 01/23/18 04:07 Urine pH 7.0 (5.0-8.0) 01/23/18 04:07 Ur Specific [place] 1.009 (1.003-1.030) 01/23/18 04:07 Urine Protein Negative mg/dL (NEGATIVE) 01/23/18 04:07 Urine Glucose (UA) Neg mg/dL (Normal) 01/23/18 04:07 Urine Ketones Negative mg/dL (NEGATIVE) 01/23/18 04:07 Urine Blood Negative (NEGATIVE) 01/23/18 04:07 Urine Nitrate Negative (NEGATIVE) 01/23/18 04:07 Urine Bilirubin Negative (NEGATIVE) 01/23/18 04:07 Urine Urobilinogen 0.2-1.0 mg/dL (0.2-1.0) 01/23/18 04:07 Ur Leukocyte Esterase Trace Dheeraj/uL (Negative) 01/23/18 04:07 Urine RBC (Auto) 2 /hpf (0-3) 01/23/18 04:07 Urine Microscopic WBC 2 /hpf (0-5) 01/23/18 04:07 Ur Squamous Epith Cells 1 /hpf (0-5) 01/23/18 04:07 Digoxin 0.5 ng/mL (0.8-2.0) L 01/22/18 01:15 Valproic Acid 42.4 ug/mL (50.0-100.0) L 01/22/18 00:34 - Hospital Course Hospital Course: 62 years old female whose in 2017, now lives alone, with hx of HTN, DM II, CHF, afib? and depression with prior admission to pysch unit presents to the ED after a fall. History is per the ED as patient is refusing to answer questions at this time. She is awake, alert, making eye contact. She reported to the ED that she felt she was going to fall and let herself down slowly, stating she may have hit her head. CT was negative for any acute findings. Patient was admitted to obs for presyncope. During her course of stay, she had an COOK DINNER secondary to syncope when she walked to the bathroom and at that time there was concern for seizure as she had a blank stare during COOK DINNER and was unresponsive to verbal stimuli. The patient went for CT head which was negative for CVA or acute intracranial bleed. Dr. Peralta evaluated the patient and stated that the patient much more likely had pseudoseizure rather than a true seizure. The patient today is being discharged to inpatient psych. Dr. Camara was consulted on the patient as well and the patient was agreeable for voluntary psychiatry admission. 1) Presyncope - [place] more likely to be related to pseudoseizure / psych related - Discharge to inpatient psych kee - CT head negative - pt was evaluated for L Carotid Stenosis previously, but was not thought to be the cause of presyncope. Dopplers were negative. 2) Severe Depression - Dr. Camara consulted - Continue Paxil - Further workup as per inpatient psych 3) Dementia - as per psych CHF HTN HLD Afib continue ASA, Lipitor, Coreg, Digoxin, Spironolactone all chronic conditions stable at this time LBBB baseline rate controlled Dig level 0.5, should repeat Digoxin level in a week (patient may have been noncompliant with her digoxin) Discharge Exam - Head Exam Head Exam: ATRAUMATIC, NORMAL INSPECTION, NORMOCEPHALIC - Additional Findings Additional findings: Physical exam: Constitutional- cooperative, awake, alert Head- NCAT, PERRL Eye- PERRL, EOMI ENT- normal exam, MMM. Neck- normal inspection, supple, no JVD Respiratory- CTAB, no wheezes rales rhonchi Cardiovascular- RRR, +S1, +S2 no MRG GI/Abdominal- normal bowel sounds, soft, no mass, no hsm Skin- warm, dry Extremities Exam- normal capillary refill, normal inspection Neurological Exam- alert, awake, oriented Psych- Depressed mood, flat affect, slow to answer questions Discharge Plan - Follow Up Plan Condition: STABLE Disposition: DISCHARGE TO PSYCH HOSPITAL Instructions: Syncope (Fainting) (DC), Syncope (DC), Syncope (GEN) Referrals: Stefan Maria MD [Primary Care Provider] -
--- NOTE | 2018-01-23 15:13 | CP.PCM.CON ---
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 and she attends a day program from 1pm for 5days, supported by sister who checks on her frequently pt denied any current changes in sleep or appetite, denied perceptual disturbances, non elicited , no manic or psychotic symptoms, alert awake oriented to person and place , denied any current suicidal or homicidal ideations, denied command hallucinations Past Patient History - Infectious Disease Hx of Infectious Diseases: None - Past Medical History & Family History Past Medical History?: Yes - Past Social History Smoking Status: Never Smoked - CARDIAC Hx Hypercholesterolemia: Yes Hx Hypertension: Yes - PULMONARY Hx Respiratory Disorders: No Hx Tuberculosis: No - NEUROLOGICAL Hx Dementia: Yes (as per day care center facesheet) Hx Migraine: Yes Hx Seizures: Yes (as per day care center facesheet) - HEENT Hx HEENT Problems: Yes Hx Blind: Yes (congenital right eye blindness) - RENAL Hx Chronic Kidney Disease: No - ENDOCRINE/METABOLIC Hx Endocrine Disorders: Yes Hx Diabetes Mellitus Type 2: Yes - HEMATOLOGICAL/ONCOLOGICAL Hx Human Immunodeficiency Virus (HIV): No - INTEGUMENTARY Hx Dermatological Problems: No - MUSCULOSKELETAL/RHEUMATOLOGICAL Hx Osteoporosis: Yes - GASTROINTESTINAL Hx Gastrointestinal Disorders: No - GENITOURINARY/GYNECOLOGICAL Hx Sexually Transmitted Disorders: No - PSYCHIATRIC Hx Anxiety: Yes (as per patient) Hx Depression: Yes Hx Schizophrenia: Yes (as per daycare center facesheet) - SURGICAL HISTORY Hx Surgeries: No - ANESTHESIA Hx Anesthesia: No Meds Home Medications: Home Medication List Medication Instructions Recorded Confirmed Type Acetaminophen [Tylenol 325mg tab] 650 mg PO Q6 PRN tab 01/23/18 Rx Allergies/Adverse Reactions: Allergies Allergy/AdvReac Type Severity Reaction Status Date / Time No Known Allergies Allergy Verified 01/22/18 00:19 - Medications Medications: Current Medications Acetaminophen (Tylenol 325mg Tab) 650 mg PO Q6 PRN PRN Reason: Pain, Mild (1-3) Last Admin: 01/22/18 17:52 Dose: 650 mg Aspirin (Ecotrin) 81 mg PO DAILY [facility] Last Admin: 01/23/18 09:16 Dose: 81 mg Atorvastatin Calcium (Lipitor) 10 mg PO HS [facility] Last Admin: 01/22/18 21:36 Dose: 10 mg Carvedilol (Coreg) 25 mg PO Q12 [facility] Last Admin: 01/23/18 09:16 Dose: 25 mg Digoxin (Digoxin) 0.125 mg PO DAILY [facility] Last Admin: 01/23/18 09:17 Dose: 0.125 mg Enoxaparin Sodium (Lovenox) 40 mg SC DAILY [facility] PRN Reason: Protocol Last Admin: 01/23/18 09:15 Dose: 40 mg Ergocalciferol (Drisdol 50,000 Intl Units Cap) 1 cap PO QWK [facility] Pantoprazole Sodium (Protonix Ec Tab) 40 mg PO DAILY [facility] Last Admin: 01/23/18 09:17 Dose: 40 mg Paroxetine HCl (Paxil) 40 mg PO HS [facility] Last Admin: 01/22/18 21:36 Dose: 40 mg Spironolactone (Aldactone) 25 mg PO DAILY [facility] Last Admin: 01/23/18 09:16 Dose: 25 mg Results - Vital Signs Recent Vital Signs: Last Vital Signs Temp 98.2 F 01/23/18 12:00 Pulse 76 01/23/18 12:00 Resp 20 01/23/18 12:00 BP 107/61 01/23/18 12:00 Pulse Ox 99 01/23/18 12:00 - Labs Result Diagrams: 01/22/18 05:35 01/22/18 05:35 Labs: Laboratory Results - last 24 hr 01/23/18 04:07 Urine Color Straw Urine Clarity Clear Urine pH 7.0 Ur Specific [place] 1.009 Urine Protein Negative Urine Glucose (UA) Neg Urine Ketones Negative Urine Blood Negative Urine Nitrate Negative Urine Bilirubin Negative Urine Urobilinogen 0.2-1.0 Ur Leukocyte Esterase Trace Urine RBC (Auto) 2 Urine Microscopic WBC 2 Ur Squamous Epith Cells 1 Assessment & Plan - Assessment and Plan (Free Text) Assessment: depression moderate to mild in remission Plan: pt at current mental status denied suicidal or homicidal ideation, denied perceptual disturbances, non elicited at current mental status not danger to self or others pt psychiatricaly cleared for discharge upon medical clearance
[2018-01-23 16:22] VITALS: BP 113/71; PULSE 78; RESP 16; TEMP 98.3; O2SAT 96
== END 2018-01-23 19:26 | disposition home or self-care (01) ==
LOC: H.ER 00:17 → H.ERHOLD 02:52 → INTOOBSV 02:52 → H.TEL 04:04
PROVIDERS: ADMIT Student in an Organized Health Care Education/Training Program; ATTEND Student in an Organized Health Care Education/Training Program
DX: R55 Syncope and collapse (principal); I11.0 Hypertensive heart disease with heart failure; I50.9 Heart failure, unspecified; E11.9 Type 2 diabetes mellitus without complications; F03.90 Unspecified dementia, unspecified severity, without behavioral disturbance, psychotic disturbance, mood disturbance, and anxiety; E78.5 Hyperlipidemia, unspecified; M81.0 Age-related osteoporosis without current pathological fracture; G43.909 Migraine, unspecified, not intractable, without status migrainosus; M19.90 Unspecified osteoarthritis, unspecified site; H54.61 Unqualified visual loss, right eye, normal vision left eye; E78.00 Pure hypercholesterolemia, unspecified; I48.91 Unspecified atrial fibrillation; F32.2 Major depressive disorder, single episode, severe without psychotic features; I44.7 Left bundle-branch block, unspecified; F41.9 Anxiety disorder, unspecified
CPT/HCPCS: 70450; 80053; 80162; 80164; 81003; 82948; 83605; 84484; 85025; 85027; 87086; 93005; 96361; 96372; 96374; 99285; G0378; J1650; J2060; J7030

== ENCOUNTER 2018-02-07 18:48 | Emergency (ER) | payer MEDICARE, MEDICAID ==
[2018-02-07 18:48] VITALS: PULSE 73
[2018-02-07 19:01] VITALS: BMI 25.7
[2018-02-07] MEDS ORDERED: Sodium Chloride 0.9% 500 ML IV STA (19:04)
--- NOTE | 2018-02-07 19:21 | ED PDOC ---
HPI: General Adult Time Seen by Provider: 02/07/18 19:00 Chief Complaint (Nursing): Chest Pain Chief Complaint (Provider): Weakness History Per: Patient History/Exam Limitations: no limitations Onset/Duration Of Symptoms: Days (3) Current Symptoms Are (Timing): Still Present Additional Complaint(s): Pt. with weakness all over. Chest pain, mild off and on. No dyspnea. Has light-headedness. No headache. No abd pain, nausea, vomit, diarrhea. No fever , cough. No new vision issues. Here several times in the past for same. No numbness, tingles. Past Medical History Reviewed: Nursing Documentation, Vital Signs Vital Signs: Last Vital Signs Temp 98.7 F 02/07/18 19:02 Pulse 90 02/07/18 19:02 Resp 18 02/07/18 19:02 BP 98/55 L 02/07/18 19:02 Pulse Ox 96 02/07/18 21:49 - Medical History PMH: Anxiety (as per patient), CAD (as per day care center facesheet), Dementia (as per day care center facesheet), Depression, Diabetes, HTN, Hypercholesterolemia, Migraine, Osteoporosis, Schizophrenia (as per daycare center facesheet), Seizures (as per day care center facesheet) Denies: Hepatitis, HIV, Chronic Kidney Disease, Sexually Transmitted Disease Other PMH: right eye vision loss; left eye poor vision - Family History Family History: States: Unknown Family Hx - Home Medications Home Medications: Ambulatory Orders Medication Instructions Recorded Atorvastatin [Lipitor] 10 mg PO HS 09/04/17 Calcium/Mag/D3/B12/FA/B6/[place] 1 tab PO DAILY 09/04/17 [Folgard Os Tablet] Carvedilol [Coreg] 25 mg PO Q12 09/04/17 Digoxin [Digitek] 125 mcg PO DAILY 09/04/17 Ergocalciferol (Vitamin D2) 50,000 unit PO QWK 09/04/17 [Vitamin D2] Spironolactone [Aldactone] 25 mg PO DAILY 09/04/17 Aspirin [Adult Low Dose Aspirin EC] 81 mg PO DAILY 09/05/17 Divalproex [Depakote DR(*BID*)] 500 mg PO BID #60 tcp 09/09/17 Acetaminophen [Tylenol 325mg tab] 650 mg PO Q4 PRN tab 10/23/17 PARoxetine [Paxil] 40 mg PO HS tab 10/23/17 Pantoprazole [Protonix EC Tab] 40 mg PO DAILY [facility] 10/23/17 clonazePAM [Klonopin] 0.5 mg PO Q12 tab 10/23/17 Acetaminophen [Tylenol 325mg tab] 650 mg PO Q6 PRN tab 01/23/18 - Allergies Allergies/Adverse Reactions: Allergies Allergy/AdvReac Type Severity Reaction Status Date / Time No Known Allergies Allergy Verified 01/22/18 00:19 Review of Systems ROS Statement: Except As Marked, All Systems Reviewed And Found Negative Constitutional: Positive for: Weakness Cardiovascular: Positive for: Chest Pain Neurological: Positive for: Weakness, Dizziness Physical Exam - Reviewed Nursing Documentation Reviewed: Yes Vital Signs Reviewed: Yes - Physical Exam Appears: Positive for: Non-toxic, No Acute Distress Head Exam: Positive for: ATRAUMATIC, NORMAL INSPECTION, NORMOCEPHALIC Skin: Positive for: Normal Color, Warm, DRY Eye Exam: Positive for: Normal appearance, EOMI, PERRL ENT: Positive for: Normal ENT Inspection Neck: Positive for: Normal, Painless ROM Cardiovascular/Chest: Positive for: Regular Rate, Rhythm Respiratory: Positive for: CNT, Normal Breath Sounds Gastrointestinal/Abdominal: Positive for: Normal Exam, Soft. Negative for: Tenderness Back: Positive for: Normal Inspection. Negative for: L CVA Tenderness, R CVA Tenderness Extremity: Positive for: Normal ROM. Negative for: Tenderness, Pedal Edema Neurologic/Psych: Positive for: Alert, mortician helper II-XII, Oriented. Negative for: Motor/Sensory Deficits - Laboratory Results Result Diagrams: 02/07/18 19:45 02/07/18 19:45 Interpretation Of Abn Labs: 18/07.3 bun and cr - ECG ECG: Positive for: Interpreted By Me, Viewed By Me ECG Rhythm: Positive for: Left Bundle Branch Block (same as old) O2 Sat by Pulse Oximetry: 96 Pulse Ox Interpretation: Normal - Radiology X-Ray: Interpreted by Me, Viewed By Me X-Ray Interpretation: No Acute Disease - CT Scan/US ct Other Rad Studies (CT/US): Read By Radiologist Other Rad Interpretation: no acute - Progress ED Course And Treament: 2147: Stable. AAOx3. Pain free. Got IV fluids. No acute findings. Here multiple times for same. Pt. dc on 01/23/18 after full work up on admission for syncope. Neurology saw pt. and dx with pseudoseizure. Psych evaluated pt. Dopplers neck neg on that visit. Pt. ambulated with no issues. Fu with pcp. Disposition - Clinical Impression Clinical Impression: Weakness, Dehydration - Patient ED Disposition Is Patient to be Admitted: No Counseled Patient/Family Regarding: Studies Performed, Diagnosis, Need For Followup - Disposition Referrals: Stefan Maria MD [Staff Provider] - 02/09/18 Disposition: Routine/Home Disposition Time: 21:54 Condition: STABLE Additional Instructions: Return if not better in 3 days. Instructions: Weakness (ED), Dehydration, Adult (DC) Print Language: FIJIAN
[2018-02-07 20:18] LABS: BASO % 0.4 % (0.0-2.0); EOS # 0.1 K/uL (0.0-0.7); EOS % 1.1 % (0.0-4.0); HEMOGLOBIN 13.2 g/dL (12.0-16.0); LYMPH # 3.8 K/uL (1.0-4.3); MEAN CELL VOLUME 82.3 fl (81.0-99.0); MEAN CORPUSCULAR HEMOGLOBIN 29.5 pg (27.0-31.0); MEAN CORPUSCULAR HGB CONC 35.8 g/dL (33.0-37.0); MEAN PLATELET VOLUME 7.4 fl (7.2-11.7); MONO # 0.8 K/uL (0.0-0.8); MONO % 6.8 % (0.0-10.0); NEUT # 6.5 K/uL (1.8-7.0); NEUT % 57.7 % (50.0-75.0); NRBC % 0.1 % (0.0-0.0); RBC 4.48 Mil/uL (3.80-5.20); RED CELL DISTRIBUTION WIDTH 15.1 % (11.5-14.5); WHITE BLOOD COUNT 11.2 K/uL (4.8-10.8)
[2018-02-07 20:32] LABS: INR 1.2
[2018-02-07] MEDS ORDERED: Alum-Mag Hydrox-Simethicone Susp (30 mL) ONE (20:34)
[2018-02-07 20:35] LABS: PARTIAL THROMBOPLASTIN TIME 45.4 Seconds (25.6-37.1)
[2018-02-07] MEDS ORDERED: Alum-Mag Hydrox-Simethicone Susp (30 mL) PO ONE (20:43)
[2018-02-07 21:04] LABS: ALB/GLOB RATIO 1.5 (1.0-2.1); ALBUMIN 4.9 g/dL (3.5-5.0); ALT/SGPT 24 U/L (9-52); AST/SGOT 32 U/L (14-36); BLOOD UREA NITROGEN 19 mg/dl (7-17); GFR AFRICAN-AMERICAN 50; GFR NON-AFRICAN AMERICAN 41
[2018-02-08 07:15] VITALS: BP 105/58; PULSE 98; RESP 16; TEMP 98.4; O2SAT 100
--- NOTE | 2018-02-08 09:12 | RAD ---
Date of service: 02/07/2018 HISTORY: dyspnea COMPARISON: Chest radiograph dated 10/21/2017. FINDINGS: LUNGS: No active pulmonary disease. PLEURA: No significant pleural effusion identified, no pneumothorax apparent. CARDIOVASCULAR: Atherosclerotic aortic calcifications. Cardiomediastinal silhouette stably enlarged. OSSEOUS STRUCTURES: Unchanged. VISUALIZED UPPER ABDOMEN: Right upper quadrant surgical clips redemonstrated. OTHER FINDINGS: None. IMPRESSION: No active disease.
--- NOTE | 2018-02-08 09:24 | CT ---
Date of service: 02/07/2018 PROCEDURE: CT HEAD WITHOUT CONTRAST. HISTORY: headache COMPARISON: CT head dated 01/22/2018. TECHNIQUE: Axial computed tomography images were obtained through the head/brain without intravenous contrast. Radiation dose: Total exam DLP = 756.6 mGy-cm. This CT exam was performed using one or more of the following dose reduction techniques: Automated exposure control, adjustment of the mA and/or kV according to patient size, and/or use of iterative reconstruction technique. FINDINGS: HEMORRHAGE: No intracranial hemorrhage. BRAIN: No mass effect or edema. Mild atrophy. Mild chronic microvascular ischemic changes. VENTRICLES: Unremarkable. No hydrocephalus. CALVARIUM: Unremarkable. PARANASAL SINUSES: Unremarkable as visualized. Right middle turbinate marva bullosa. No significant inflammatory changes. MASTOID AIR CELLS: Unremarkable as visualized. No inflammatory changes. OTHER FINDINGS: None. IMPRESSION: No intracranial pathology. Age-related changes. No significant interval change.
--- NOTE | 2018-02-08 18:25 | CARD ---
APPROVED REPORT Date of service: 02/07/2018 EKG Measurement Heart [id number] <Conclusion> Normal sinus rhythm Possible Left atrial enlargement Left bundle branch block Abnormal ECG
== END 2018-02-07 23:05 | disposition home or self-care (01) ==
LOC: H.ER 18:48
DX: E86.0 Dehydration (principal); R53.1 Weakness; E11.9 Type 2 diabetes mellitus without complications; F03.90 Unspecified dementia, unspecified severity, without behavioral disturbance, psychotic disturbance, mood disturbance, and anxiety; Z86.59 Personal history of other mental and behavioral disorders; I10 Essential (primary) hypertension; M81.0 Age-related osteoporosis without current pathological fracture; Z79.82 Long term (current) use of aspirin
CPT/HCPCS: 70450; 71045; 80053; 80162; 84484; 85025; 85610; 85730; 93005; 99284; J7040

== ENCOUNTER 2018-04-06 19:31 | Inpatient (IN) | payer MEDICARE, MEDICAID ==
[2018-04-06 19:32] VITALS: PULSE 73; BMI 25.7
[2018-04-06 21:10] LABS: BASO % 0.3 % (0.0-2.0); EOS # 0.1 K/uL (0.0-0.7); EOS % 1.1 % (0.0-4.0); HEMOGLOBIN 11.2 g/dL (12.0-16.0); LYMPH % 45.2 % (20.0-40.0); MEAN CELL VOLUME 80.9 fl (81.0-99.0); MEAN CORPUSCULAR HEMOGLOBIN 29.5 pg (27.0-31.0); MEAN CORPUSCULAR HGB CONC 36.5 g/dL (33.0-37.0); MONO # 0.7 K/uL (0.0-0.8); MONO % 9.9 % (0.0-10.0); NEUT # 2.9 K/uL (1.8-7.0); NEUT % 43.5 % (50.0-75.0); RBC 3.8 Mil/uL (3.80-5.20); RED CELL DISTRIBUTION WIDTH 14.6 % (11.5-14.5); WHITE BLOOD COUNT 6.6 K/uL (4.8-10.8)
[2018-04-06 21:17] LABS: PROTHROMBIN TIME 11.2 Seconds (9.8-13.1)
[2018-04-06 21:19] LABS: PARTIAL THROMBOPLASTIN TIME 27.5 Seconds (25.6-37.1)
[2018-04-06 21:23] LABS: ALB/GLOB RATIO 1.3 (1.0-2.1); ALBUMIN 4.1 g/dL (3.5-5.0); ALT/SGPT 25 U/L (9-52); AST/SGOT 44 U/L (14-36); BLOOD UREA NITROGEN 20 mg/dl (7-17); GFR NON-AFRICAN AMERICAN 56
--- NOTE | 2018-04-06 21:25 | ED PDOC ---
HPI: Psych/Substance Abuse <Gill Chicas Y - Last Filed: 04/07/18 00:42> Chief Complaint (Provider): Psychiatric Evaluation History Per: Patient History/Exam Limitations: no limitations Current Symptoms Are (Timing): Still Present Modifying Factor(s): None Associated Symptoms: Depression Additional Complaint(s): 62 year old female with a history of depression presents to the ED with depression. For the past few days she has been lying in bed, not eating and not getting up because she is tired of life. Patient has been depressed for a year since her . She lives by herself and family doesnt visit her. Unclear if she has been taking her regular medications. Patient denies SI or plan. PMD: none provided <Stephanie Barbour - Last Filed: 04/13/18 16:24> Time Seen by Provider: 04/06/18 20:05 Chief Complaint (Nursing): Psychiatric Evaluation Past Medical History Vital Signs: Last Vital Signs Temp 99 F 04/06/18 19:33 Pulse 74 04/06/18 19:33 Resp 18 04/06/18 19:33 BP 96/50 L 04/06/18 19:33 Pulse Ox 99 04/06/18 21:40 <Gill Chicas Y - Last Filed: 04/07/18 00:42> Reviewed: Historical Data, Nursing Documentation, Vital Signs Vital Signs: Last Vital Signs Temp 99 F 04/06/18 19:33 Pulse 74 04/06/18 19:33 Resp 18 04/06/18 19:33 BP 96/50 L 04/06/18 19:33 Pulse Ox 99 04/06/18 19:33 - Medical History PMH: Anxiety (as per patient), CAD (as per day care center facesheet), Dementia (as per day care center facesheet), Depression, Diabetes, HTN, Hypercholesterolemia, Migraine, Osteoporosis, Schizophrenia (as per daycare center facesheet), Seizures (as per day care center facesheet) Denies: Hepatitis, HIV, Chronic Kidney Disease, Sexually Transmitted Disease - Family History Family History: States: Unknown Family Hx <Stephanie Barbour - Last Filed: 04/13/18 16:24> - Home Medications Home Medications: Ambulatory Orders Medication Instructions Recorded RX: Atorvastatin [Lipitor] 10 mg PO HS 09/04/17 RX: Ergocalciferol (Vitamin D2) 50,000 unit PO QWK 09/04/17 [Vitamin D2] RX: Aspirin [Adult Low Dose 81 mg PO DAILY 09/05/17 Aspirin EC] RX: Acetaminophen [Tylenol 325mg 650 mg PO Q4 PRN tab 10/23/17 tab] RX: PARoxetine [Paxil] 40 mg PO HS tab 10/23/17 RX: Pantoprazole [Protonix EC Tab] 40 mg PO DAILY ect 10/23/17 RX: Acetaminophen [Tylenol] 650 mg PO PRN PRN 04/11/18 RX: Acetaminophen/Butalbital/Caf 1 tab PO PRN PRN 04/11/18 [Fioricet] RX: Alendronate [Fosamax] 70 mg PO QWK 04/11/18 RX: Aluminum Hydroxide/Magnesium 30 ml PO PRN PRN 04/11/18 [Maalox Plus 30 ml] RX: Amitriptyline [Elavil] 50 mg PO HS 04/11/18 RX: Amitriptyline [Elavil] 50 mg PO HS 04/11/18 RX: Ergocalciferol [Drisdol 50,000 1 cap PO QWK 04/11/18 Intl Units Cap] RX: LORazepam [Ativan] 0.5 mg PO PRN PRN 04/11/18 RX: Magnesium Hydroxide [Milk Of 30 ml PO PRN PRN 04/11/18 Magnesia] RX: Multimineral/Multivitamin 1 tab PO DAILY 04/11/18 [Therapeutic-M Tab] RX: Sertraline [Zoloft] 50 mg PO DAILY 04/11/18 RX: Amitriptyline [Elavil] 50 mg PO HS tab 04/12/18 RX: Lacosamide [Vimpat] 100 mg PO BID tab 04/12/18 - Allergies Allergies/Adverse Reactions: Allergies Allergy/AdvReac Type Severity Reaction Status Date / Time No Known Allergies Allergy Verified 01/22/18 00:19 Review of Systems ROS Statement: Except As Marked, All Systems Reviewed And Found Negative Neurological: Positive for: Weakness Psych: Positive for: Depression, Other (laze). Negative for: Suicidal ideation <Stephanie Barbour - Last Filed: 04/13/18 16:24> Physical Exam - Reviewed Nursing Documentation Reviewed: Yes Vital Signs Reviewed: Yes - Physical Exam Appears: Positive for: In Acute Distress (psychiatric and tired appearing) Head Exam: Positive for: ATRAUMATIC, NORMOCEPHALIC Skin: Positive for: Warm, Dry, Pallor Eye Exam: Positive for: EOMI, PERRL ENT: Positive for: Normal ENT Inspection Neck: Positive for: Painless ROM, Supple Cardiovascular/Chest: Positive for: Regular Rate, Rhythm. Negative for: Murmur Respiratory: Positive for: Normal Breath Sounds. Negative for: Respiratory Distress Gastrointestinal/Abdominal: Positive for: Soft. Negative for: Tenderness Back: Positive for: Normal Inspection. Negative for: Decreased ROM Extremity: Positive for: Normal ROM. Negative for: Deformity Lymphatic: Negative for: Adenopathy Neurologic/Psych: Positive for: Alert, Oriented (x3), Mood/Affect (depressed). Negative for: Motor/Sensory Deficits <Stephanie Barbour J - Last Filed: 04/13/18 16:24> - Laboratory Results Result Diagrams: 04/06/18 21:05 04/06/18 21:05 <Gill Chicas Y - Last Filed: 04/07/18 00:42> - Laboratory Results Result Diagrams: 04/11/18 08:45 04/11/18 09:03 - ECG O2 Sat by Pulse Oximetry: 99 (RA) Pulse Ox Interpretation: Normal <Stephanie Barbour J - Last Filed: 04/13/18 16:24> Medical Decision Making Medical Decision Making: Time: 2023 Initial Impression: severe depression Initial Plan: --EKG --Acetaminophen --BNP --CMP --Creatine --drug screen --lact acid --Magnesium --Phosphorus --Salicylate --Thyroid stimulating hormone --U dip --CBC with differentials --PTT --PT --CXR --Glucose ------ Scribe Attestation: Documented by Evelyne Hogan, acting as a scribe for Stephanie Barbour MD Provider Scribe Attestation: All medical record entries made by the Scribe were at my direction and personally dictated by me. I have reviewed the chart and agree that the record accurately reflects my personal performance of the history, physical exam, medical decision making, and the department course for this patient. I have also personally directed, reviewed, and agree with the discharge instructions and disposition. <Stephanie Barbour - Last Filed: 04/13/18 16:24> Disposition <Gill Chicas - Last Filed: 04/07/18 00:42> - Disposition Disposition Time: 00:00 Patient Signed Over To: Gill Chicas Handoff Comments: Pending ER workup, crisis eval, final ER disposition <Stephanie Barbour - Last Filed: 04/13/18 16:24> - Clinical Impression Clinical Impression: Depression - Disposition Condition: STABLE
[2018-04-06 21:29] LABS: ACETAMINOPHEN < 10.0 ug/ml (10.0-30.0); SALICYLATE < 1.0 mg/dl
[2018-04-06 21:34] LABS: B-TYPE NATRIURETIC PEPTIDE 64.8 pg/ml (0-900)
--- NOTE | 2018-04-07 00:53 | ED PDOC ---
- Laboratory Results Result Diagrams: 04/06/18 21:05 04/06/18 21:05 - ECG O2 Sat by Pulse Oximetry: 99 (RA) Medical Decision Making Medical Decision Makin patient signed out to machine sign writer pending crisis eval. pt to be admitted as per crisis to psych Dr. Saez with diagnosis of depression Disposition Counseled Patient/Family Regarding: Studies Performed, Diagnosis, Need For Followup - Clinical Impression Clinical Impression: Depression - POA Present On Arrival: None - Disposition Disposition: Admitted as In-Patient Disposition Time: 01:00 Condition: STABLE
[2018-04-07] MEDS ORDERED: Bismuth Subsalicylate 262 mg/15 ml Sus (240 ml) PO PRN (01:19)
[2018-04-07] MEDS ORDERED: Magnesium Hydroxide Susp 30 ml UD PO PRN (01:19)
[2018-04-07] MEDS ORDERED: Alum-Mag Hydrox-Simethicone Susp (30 mL) PO PRN (01:19)
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
[2018-04-07 04:15] VITALS: O2SAT 99
[2018-04-07 06:14] LABS: HDL CHOLESTEROL 60 MG/DL (30-70)
[2018-04-07 06:25] LABS: LDL CHOLESTEROL 122 mg/dL (0-129)
[2018-04-07 06:27] LABS: IRON 131 ug/dL (37-170)
[2018-04-07 06:31] LABS: T4 8.42 ug/dl (5.5-11.0)
[2018-04-07 06:36] LABS: % IRON SATURATION 44 % (20-55); TOTAL IRON BINDING CAPACITY 297 ug/dL (250-450)
--- NOTE | 2018-04-07 06:57 | CARD ---
APPROVED REPORT Date of service: 04/06/2018 EKG Measurement Heart [id number] <Conclusion> Normal sinus rhythm Normal ECG
[2018-04-07] MEDS: Pantoprazole 40 mg EC Tab PO SCH (08:38)
[2018-04-07] MEDS ORDERED: Divalproex 500 mg DR(BID formulation) PO SCH (09:00)
--- NOTE | 2018-04-07 09:35 | RAD ---
Date of service: 04/06/2018 HISTORY: weakness COMPARISON: Frontal chest 02/07/2018. FINDINGS: LUNGS: No active alveolar disease. Limited fibrosis or linear atelectasis in the inferior left lung zone. PLEURA: No significant pleural effusion identified, no pneumothorax apparent. CARDIOVASCULAR: Stable cardiac silhouette. No pulmonary vascular congestion. OSSEOUS STRUCTURES: No significant abnormalities. VISUALIZED UPPER ABDOMEN: Surgical clips right upper quadrant abdomen reiterated. OTHER FINDINGS: None. IMPRESSION: Limited linear atelectasis or fibrosis in the left base with remaining lung sharp clear. Stable cardiomediastinal silhouette. No pulmonary vascular congestion.
--- NOTE | 2018-04-07 11:01 | PCM.PSYCH ---
Initial Psychiatric Evaluation - Initial Psychiatric Evaluation Type of Admission: Voluntary Legal Status: Capacity Chief Complaint (in patient's own words): "I'm depressed." Patient's Reaction to Hospitalization: HPI: 62 yo female presents w/ worsening depression, poor sleep, poor appetite, reports not eating for 5 days, poor memory, feelings of hopelessness, feelings frustrated that her son does not visit her more and care for her more. No current AH/VH/paranoia/delusions. NO SI/HI. A + O x self and hospital, not oriented to date. PPHx: Hopitalized on 3NS in 08/2017. Remote history of hospitalizations and 2 suicide attempts by ingesting Bleach, she does not give a specific date. She is currently prescribed Amitriptyline 50 mg PO Daily, Klonopin 2 mg PO Q12 by her PMD Dr. 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, has 1 adult son Current Medications: Active Medications Generic Name Dose Route Start Last Admin Trade Name Freq PRN Reason Stop Dose Admin Acetaminophen 650 mg 04/07/18 01:19 Tylenol 325mg Tab PO Q4 PRN Pain, moderate (4-7) Al Hydrox/Mg Hydrox/Simethicone 30 ml 04/07/18 01:19 Maalox Plus 30 Ml PO Q4 PRN Dyspepsia Aspirin 81 mg 04/07/18 09:00 04/07/18 08:37 Ecotrin PO 81 mg DAILY CARMEL Administration Atorvastatin Calcium 10 mg 04/07/18 22:00 Lipitor PO HS CARMEL Bismuth Subsalicylate 524 mg 04/07/18 01:19 Pepto-Bismol PO Q4 PRN Diarrhea Divalproex Sodium 500 mg 04/07/18 09:00 04/07/18 08:37 Depjose Nagy(*Bid*) PO 500 mg BID CARMEL Administration Lorazepam 0.5 mg 04/07/18 01:19 Ativan PO 04/21/18 01:20 HS PRN Insomnia Lorazepam 0.5 mg 04/07/18 01:19 Ativan PO 04/21/18 01:20 Q6 PRN Anixety/Agitation Magnesium Hydroxide 30 ml 04/07/18 01:19 Milk Of Magnesia PO HS PRN Constipation Pantoprazole Sodium 40 mg 04/07/18 09:00 04/07/18 08:38 Protonix Ec Tab PO 40 mg DAILY CARMEL Administration Past Psychiatric History - Past Psychiatric History Pertinent Medical Hx (Current Medical&Sleep Prob, Allergies): Allergies Allergy/AdvReac Type Severity Reaction Status Date / Time No Known Allergies Allergy Verified 01/22/18 00:19 Atorvastatin [Lipitor] 10 mg PO HS 09/04/17 Calcium/Mag/D3/B12/FA/B6/[place] [Folgard Os Tablet] 1 tab PO DAILY 09/04/17 Carvedilol [Coreg] 25 mg PO Q12 09/04/17 Digoxin [Digitek] 125 mcg PO DAILY 09/04/17 Ergocalciferol (Vitamin D2) [Vitamin D2] 50,000 unit PO QWK 09/04/17 Spironolactone [Aldactone] 25 mg PO DAILY 09/04/17 Aspirin [Adult Low Dose Aspirin EC] 81 mg PO DAILY 09/05/17 Divalproex [Depakote DR(*BID*)] 500 mg PO BID #60 tcp 09/09/17 Acetaminophen [Tylenol 325mg tab] 650 mg PO Q4 PRN tab 10/23/17 PARoxetine [Paxil] 40 mg PO HS tab 10/23/17 Pantoprazole [Protonix EC Tab] 40 mg PO DAILY ect 10/23/17 clonazePAM [Klonopin] 0.5 mg PO Q12 tab 10/23/17 Acetaminophen [Tylenol 325mg tab] 650 mg PO Q6 PRN tab 01/23/18 Review of Systems - Neurological Neurological: Memory Loss - Psychiatric Psychiatric: As Per HPI ( ), Abnormal Sleep Pattern, Anhedonia, Anxiety, Change in Appetite, Depression, Difficulty Concentrating, Hopelessness, Memory Loss Mental Status Examination - Personal Presentation Personal Presentation: Looks stated age - Affect Affect: Constricted - Motor Activity Motor Activity: Calm - Reliability in Providing Information Reliability in Providing Information: Poor, due to cognitve impairment - Speech Speech: Coherent - Mood Mood: Depressed - Formal Thought Process Formal Thought Process: Loosening of associations - Hallucinations/Delusions Additional comments: Denies AH/VH/paranoia/delusions - Obsessions/Compulsions Obsessions: No Compulsions: No - Cognitive Functions Orientation: Person, Place, Situation Sensorium: Alert Estimate of Intelligence: Average Judgement: Intact, as evidence by: Insight regarding need for hospitalization Memory: Recent impaired, as evidence by: Inability to recall events of the day - Risk Risk: Diminished functioning - Strength & Assets Inventory Strength & Assets Inventory: Family support - Limitations Limitations: Living alone DSM 5 DX - DSM 5 DSM 5 Diagnosis: Major Depressive Disorder; Generalized Anxiety Disorder - Recommended/Plan of Treatment Treatment Recommendations and Plan of Treatment: Major Depressive Disorder; Generalized Anxiety Disorder -Admit to psychiatry unit -Continue Amitriptyline for migraines -Taper Klonopin -Medicine consult -Start Zoloft 25 mg PO Daily -Individual and group therapy -Disposition planning Projected ELOS: 5-7 days Discharge Plan and Discharge Criteria: Discharge when patient is psychiatrically stable - Smoking Cessation Smoking Cessation Initiated: No Reason for not providing: Not indicated
--- NOTE | 2018-04-07 13:35 | CP.PCM.CON ---
History of Present Illness - History of Present Illness History of Present Illness: 62 yo female with history of DM2, HTN, HLD, Seizure and depression admitted to [facility] because of worsening depression. Review of Systems - Review of Systems All systems: reviewed and no additional remarkable complaints except (aside from those mentioned above, 12 point system review were negative by me) Past Patient History - Infectious Disease Hx of Infectious Diseases: None - Tetanus Immunizations Tetanus Immunization: Unknown - Past Medical History & Family History Past Medical History?: Yes Past Family History: Reviewed and not pertinent - Past Social History Smoking Status: Never Smoked Chewing Tobacco Use: No Cigar Use: No Alcohol: None Drugs: Denies Home Situation {Lives}: Alone - CARDIAC Hx Cardiac Disorders: No Hx Hypercholesterolemia: Yes Hx Hypertension: Yes - PULMONARY Hx Tuberculosis: No - NEUROLOGICAL HX Cerebrovascular Accident: No Hx Seizures: Yes - HEENT Hx 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) - RENAL Hx Chronic Kidney Disease: No - ENDOCRINE/METABOLIC Hx Endocrine Disorders: Yes Hx Diabetes Mellitus Type 2: Yes - HEMATOLOGICAL/ONCOLOGICAL Hx Cancer: No Hx Human Immunodeficiency Virus (HIV): No - INTEGUMENTARY Hx Dermatological Problems: No - MUSCULOSKELETAL/RHEUMATOLOGICAL Hx Falls: No Hx Osteoarthritis: Yes Hx Osteoporosis: Yes - GASTROINTESTINAL Hx Gastrointestinal Disorders: No Hx Gastroesophageal Reflux: Yes - GENITOURINARY/GYNECOLOGICAL Hx Sexually Transmitted Disorders: No - PSYCHIATRIC Hx Depression: Yes Hx Substance Use: No - SURGICAL HISTORY Hx Surgeries: No - ANESTHESIA Hx Anesthesia: No Meds Allergies/Adverse Reactions: Allergies Allergy/AdvReac Type Severity Reaction Status Date / Time No Known Allergies Allergy Verified 01/22/18 00:19 - Medications Medications: Current Medications Acetaminophen (Tylenol 325mg Tab) 650 mg PO Q4 PRN PRN Reason: Pain, moderate (4-7) Al Hydrox/Mg Hydrox/Simethicone (Maalox Plus 30 Ml) 30 ml PO Q4 PRN PRN Reason: Dyspepsia Amitriptyline HCl (Elavil) 50 mg PO HS [facility] Aspirin (Ecotrin) 81 mg PO DAILY [facility] Last Admin: 04/07/18 08:37 Dose: 81 mg Atorvastatin Calcium (Lipitor) 10 mg PO HS [facility] Bismuth Subsalicylate (Pepto-Bismol) 524 mg PO Q4 PRN PRN Reason: Diarrhea Clonazepam (Klonopin) 0.5 mg PO Q12 [facility] Last Admin: 10/09/18 12:11 Dose: 0.5 mg Divalproex Sodium (Depakote Dr(*Bid*)) 500 mg PO BID [facility] Last Admin: 04/07/18 08:37 Dose: 500 mg Lorazepam (Ativan) 0.5 mg PO HS PRN PRN Reason: Insomnia Stop: 04/21/18 01:20 Lorazepam (Ativan) 0.5 mg PO Q6 PRN PRN Reason: Anixety/Agitation Stop: 04/21/18 01:20 Magnesium Hydroxide (Milk Of Magnesia) 30 ml PO HS PRN PRN Reason: Constipation Pantoprazole Sodium (Protonix Ec Tab) 40 mg PO DAILY [facility] Last Admin: 04/07/18 08:38 Dose: 40 mg Sertraline HCl (Zoloft) 25 mg PO DAILY [facility] Physical Exam - Constitutional Appears: No Acute Distress - Head Exam Head Exam: ATRAUMATIC - Eye Exam Eye Exam: absent: Scleral icterus - ENT Exam ENT Exam: Mucous Membranes Moist - Neck Exam Neck exam: Negative for: Meningismus - Respiratory Exam Respiratory Exam: absent: Rales, Rhonchi, Wheezes, Respiratory Distress - Cardiovascular Exam Cardiovascular Exam: REGULAR RHYTHM, +S1, +S2 - GI/Abdominal Exam GI & Abdominal Exam: Soft. absent: Tenderness - Rectal Exam Rectal Exam: Deferred - Extremities Exam Extremities exam: Positive for: normal inspection - Neurological Exam Neurological exam: Alert, Oriented x3 - Psychiatric Exam Psychiatric exam: Normal Affect - Skin Skin Exam: Dry, Intact Results - Vital Signs Recent Vital Signs: Last Vital Signs Temp 97.2 F L 04/07/18 06:00 Pulse 67 04/07/18 06:00 Resp 20 04/07/18 06:00 BP 97/64 L 04/07/18 06:00 Pulse Ox 99 04/07/18 04:14 - Labs Result Diagrams: 04/06/18 21:05 04/06/18 21:05 Labs: Laboratory Results - last 24 hr 04/06/18 04/06/18 04/06/18 21:04 21:05 21:05 WBC 6.6 RBC 3.80 Hgb 11.2 L D Hct 30.8 L MCV 80.9 L MCH 29.5 MCHC 36.5 RDW 14.6 H Plt Count 261 MPV 7.0 L Neut % (Auto) 43.5 L Lymph % (Auto) 45.2 H Atkinson % (Auto) 9.9 Eos % (Auto) 1.1 Baso % (Auto) 0.3 Neut # (Auto) 2.9 Lymph # (Auto) 3.0 Atkinson # (Auto) 0.7 Eos # (Auto) 0.1 Baso # (Auto) 0.0 PT INR APTT Sodium Potassium Chloride Carbon Dioxide Anion Gap BUN Creatinine Est GFR ( Amer) Est GFR (Non-Af Amer) POC Glucose (mg/dL) Random Glucose Hemoglobin A1c Lactic Acid 1.5 Calcium Phosphorus Magnesium Iron TIBC % Saturation Ferritin Total Bilirubin AST ALT Alkaline Phosphatase Total Creatine Kinase Troponin I NT-Pro-B Natriuret Pep Total Protein Albumin Globulin Albumin/Globulin Ratio Triglycerides Cholesterol LDL Cholesterol Direct HDL Cholesterol Vitamin B12 Free T4 Thyroxine (T4) TSH 3rd Generation Salicylates < 1.0 Acetaminophen < 10.0 L Valproic Acid 04/06/18 04/06/18 04/07/18 21:05 21:05 04:59 WBC RBC Hgb Hct MCV MCH MCHC RDW Plt Count MPV Neut % (Auto) Lymph % (Auto) Atkinson % (Auto) Eos % (Auto) Baso % (Auto) Neut # (Auto) Lymph # (Auto) Atkinson # (Auto) Eos # (Auto) Baso # (Auto) PT 11.2 INR 1.0 APTT 27.5 Sodium 133 Potassium 4.4 Chloride 92 L Carbon Dioxide 32 H Anion Gap 13 BUN 20 H Creatinine 1.0 Est GFR ( Amer) > 60 Est GFR (Non-Af Amer) 56 POC Glucose (mg/dL) 78 Random Glucose 103 Hemoglobin A1c Lactic Acid Calcium 9.0 Phosphorus 3.1 Magnesium 1.6 Iron TIBC % Saturation Ferritin Total Bilirubin 0.3 AST 44 H D ALT 25 Alkaline Phosphatase 61 Total Creatine Kinase 87 Troponin I < 0.0120 NT-Pro-B Natriuret Pep 64.8 Total Protein 7.5 Albumin 4.1 Globulin 3.3 Albumin/Globulin Ratio 1.3 Triglycerides Cholesterol LDL Cholesterol Direct HDL Cholesterol Vitamin B12 Free T4 Thyroxine (T4) TSH 3rd Generation 1.66 Salicylates Acetaminophen Valproic Acid 04/07/18 04/07/18 04/07/18 05:20 05:20 05:20 WBC RBC Hgb Hct MCV MCH MCHC RDW Plt Count MPV Neut % (Auto) Lymph % (Auto) Atkinson % (Auto) Eos % (Auto) Baso % (Auto) Neut # (Auto) Lymph # (Auto) Atkinson # (Auto) Eos # (Auto) Baso # (Auto) PT INR APTT Sodium Potassium Chloride Carbon Dioxide Anion Gap BUN Creatinine Est GFR ( Amer) Est GFR (Non-Af Amer) POC Glucose (mg/dL) Random Glucose Hemoglobin A1c 5.8 Lactic Acid Calcium Phosphorus Magnesium Iron 131 TIBC 297 % Saturation 44 Ferritin 57.0 Total Bilirubin AST ALT Alkaline Phosphatase Total Creatine Kinase Troponin I NT-Pro-B Natriuret Pep Total Protein Albumin Globulin Albumin/Globulin Ratio Triglycerides 289 H D Cholesterol 252 H LDL Cholesterol Direct 122 HDL Cholesterol 60 Vitamin B12 733 Free T4 Thyroxine (T4) 8.42 TSH 3rd Generation 1.03 Salicylates Acetaminophen Valproic Acid 04/07/18 04/07/18 04/07/18 05:20 06:00 10:59 WBC RBC Hgb Hct MCV MCH MCHC RDW Plt Count MPV Neut % (Auto) Lymph % (Auto) Atkinson % (Auto) Eos % (Auto) Baso % (Auto) Neut # (Auto) Lymph # (Auto) Atkinson # (Auto) Eos # (Auto) Baso # (Auto) PT INR APTT Sodium Potassium Chloride Carbon Dioxide Anion Gap BUN Creatinine Est GFR ( Amer) Est GFR (Non-Af Amer) POC Glucose (mg/dL) 182 H Random Glucose Hemoglobin A1c Lactic Acid Calcium Phosphorus Magnesium Iron TIBC % Saturation Ferritin Total Bilirubin AST ALT Alkaline Phosphatase Total Creatine Kinase Troponin I NT-Pro-B Natriuret Pep Total Protein Albumin Globulin Albumin/Globulin Ratio Triglycerides Cholesterol LDL Cholesterol Direct HDL Cholesterol Vitamin B12 Free T4 1.25 Thyroxine (T4) TSH 3rd Generation Salicylates Acetaminophen Valproic Acid < 10.0 L Assessment & Plan (1) Depression Status: Chronic Comment: psyche is managing (2) DM type 2 (diabetes mellitus, type 2) Status: Chronic Comment: HgA1C: 5.8. accuchek ACHS. will hold diabetic medications. maintain diabetic diet (3) HTN (hypertension) Status: Chronic Comment: BP on the low side. will hold both Lisinopril, Losartan, Coreg and Demadex
[2018-04-07] MEDS ORDERED: Ergocalciferol 50,000 Intl Units Cap PO SCH (15:30)
[2018-04-07] MEDS ORDERED: Patient's Own Med (Levetiracetam [Keppra] 750 MG) PO SCH (15:30)
[2018-04-07 17:18] LABS: FOLATE > 20.0 ng/mL
[2018-04-07 20:20] LABS: SQUAMOUS EPITHIAL 1 /hpf (0-5); URINE BACTERIA RARE (<OCC); URINE BILIRUBIN NEGATIVE (NEGATIVE); URINE BLOOD NEGATIVE (NEGATIVE); URINE CLARITY CLEAR (Clear); URINE COLOR YELLOW (YELLOW); URINE GLUCOSE (UA) NEG (Normal); URINE LEUKOCYTE ESTERASE TRACE Leu/uL (Negative); URINE PROTEIN NEGATIVE (NEGATIVE); URINE UROBILINOGEN 0.2-1.0 mg/dL (0.2-1.0)
[2018-04-07 20:27] LABS: BARBITURATES, UR POSITIVE (NEGATIVE); BENZODIAZEPINES, UR NEGATIVE (NEGATIVE); OPIATES, UR POSITIVE (NEGATIVE); PHENCYCLIDINE, UR NEGATIVE (NEGATIVE)
[2018-04-07] MEDS: Insulin Lispro (humaLOG) 100 Units/ml Inj SC SCH (21:33)
[2018-04-08] MEDS ORDERED: ALENDRONATE 70 MG TAB PO SCH (07:00)
[2018-04-08] MEDS: Insulin Lispro (humaLOG) 100 Units/ml Inj SC SCH ×4 (08:39→21:09)
[2018-04-08] MEDS: Pantoprazole 40 mg EC Tab PO SCH (09:18)
[2018-04-08] MEDS ORDERED: Influenza Vaccine (5 YR UP)/PF 60 MCG/0.5 ML SYR IM ONE (10:00)
--- NOTE | 2018-04-08 10:00 | PCM.PYCHPN ---
Psychiatric Progress Note - Psychiatric Progress Note Patient seen today, length of contact: Pt evaluated, case discussed with team, chart reviewed Patient Chief Complaint: "I'm depressed." Problems Identified/Issues Discussed: Patient continues to report feeling depressed and anxious. Patient acknowledges that she did not follow-up with psychiatric treatment after her last discharge. Psychoeducation provided on the importance of compliance with treatment and medications. Patient does acknowledge that she has memory deficits. No SI/HI. Medication Change: No Medical Record Reviewed: Yes Consults ordered or reviewed: Medicine consult Mental Status Examination - Cognitive Function Orientation: Person, Place, Situation, Time (Mar 2018) Memory: Impaired Association: WNL Fund of Knowledge: [facility] Decription of patient's judgement and insights: Poor I/J - Mood Mood: Depressed, Anxious - Affect Affect: Constricted - Formal Thought Process Formal Thought Process: Loosening of associations Psychotic Thoughts and Behaviors: No AH/VH/paranoia/delusions - Suicidal Ideation Suicidal Ideation: No - Homicidal Ideation Homicidal Ideation: No Goal/Treatment Plan - Goal/Treatment Plan Need for Continued Stay: Remain at risks for inpatient hospitalization, Severe depression anxiety Progress Toward Problem(s) and Goals/Treatment Plan: Major Depressive Disorder; Generalized Anxiety Disorder -Continue Amitriptyline -Taper Klonopin -Medicine consult -Continue Zoloft -Neurology consult -Individual and group therapy -Disposition planning Estimated Date of D/C: 04/13/18
[2018-04-08] MEDS: Multivitamin With Minerals Tab PO SCH (16:18)
[2018-04-09] MEDS: Pantoprazole 40 mg EC Tab PO SCH (08:39)
[2018-04-09] MEDS: Multivitamin With Minerals Tab PO SCH (08:39)
[2018-04-09] MEDS: Insulin Lispro (humaLOG) 100 Units/ml Inj SC SCH ×4 (08:43→21:50)
--- NOTE | 2018-04-09 11:21 | PCM.PYCHPN ---
Psychiatric Progress Note - Psychiatric Progress Note Patient seen today, length of contact: Pt evaluated, case discussed with team, chart reviewed Patient Chief Complaint: "I'm depressed." Problems Identified/Issues Discussed: Patient continues to report feeling depressed and anxious. She continues to report chronic migraines. Psychoeducation provided on the importance of compliance with treatment and medications. No SI/HI. Medication Change: No Medical Record Reviewed: Yes Consults ordered or reviewed: Medicine consult Mental Status Examination - Cognitive Function Orientation: Person, Place, Situation, Time (Mar 2018) Memory: Impaired Association: WNL Fund of Knowledge: [facility] Decription of patient's judgement and insights: Improving I/J - Mood Mood: Depressed, Anxious - Affect Affect: Constricted - Formal Thought Process Formal Thought Process: No Impairment Psychotic Thoughts and Behaviors: No AH/VH/paranoia/delusions - Suicidal Ideation Suicidal Ideation: No - Homicidal Ideation Homicidal Ideation: No Goal/Treatment Plan - Goal/Treatment Plan Need for Continued Stay: Remain at risks for inpatient hospitalization, Severe depression anxiety Progress Toward Problem(s) and Goals/Treatment Plan: Major Depressive Disorder; Generalized Anxiety Disorder -Continue Amitriptyline -Taper Klonopin -Medicine consult -Continue Zoloft -Neurology consult -Individual and group therapy -Disposition planning Estimated Date of D/C: 04/13/18
--- NOTE | 2018-04-09 12:48 | CP.PCM.CON ---
History of Present Illness - History of Present Illness History of Present Illness: Neurology Consultation Note: Mrs. Gabriel is a 62-year-old woman with a past medical history of Depression, Diabetes, HTN, Hypercholesterolemia, Migraine, Osteoporosis, Schizophrenia, Seizures (not compliant with Keppra), who is currently admitted for psychiatric care and complains of severe headaches. Review of Systems - Constitutional Constitutional: absent: As Per HPI, Anorexia, Chills, Daytime Sleepiness, Excessive Sweating, Fatigue, Fever, Frequent Falls, Headache, Increased Appetite, Lethargy, Malaise, Night Sweats, Snoring, Sleep Apnea, Weight Gain, Weight Loss, Weakness, Other - EENT Eyes: absent: As Per HPI, Blind Spots, Blurred Vision, Change in Vision, Decreased Night Vision, Diplopia, Discharge, Dry Eye, Exophthalmos, Floaters, Irritation, Itchy Eyes, Loss of Peripheral Vision, Pain, Photophobia, Requires Corrective Lenses, Sees Flashes, Spots in Vision, Tunnel Vision, Other Visual Disturbances, Loss of Vision, Other Ears: absent: As Per HPI, Decreased Hearing, Ear Discharge, Ear Pain, Tinnitus, Abnormal Hearing, Disequilibrium, Dizziness, Other Nose/Mouth/Throat: absent: As Per HPI, Epistaxis, Nasal Congestion, Nasal Discharge, Nasal Obstruction, Nasal Trauma, Nose Pain, Post Nasal Drip, Sinus Pain, Sinus Pressure, Bleeding Gums, Change in Voice, Dental Pain, Dry Mouth, Dysphagia, Halitosis, Hoarsness, Lip Swelling, Mouth Lesions, Mouth Pain, Odynophagia, Sore Throat, Throat Swelling, Tongue Swelling, Facial Pain, Neck Pain, Neck Mass, Other - Cardiovascular Cardiovascular: absent: As Per HPI, Acrocyanosis, Chest Pain, Chest Pain at Rest, Chest Pain with Activity, Claudication, Diaphoresis, Dyspnea, Dyspnea on Exertion, Edema, Irregular Heart Rhythm, Pain Radiating to Arm/Neck/Jaw, Leg Edema, Leg Ulcers, Lightheadedness, Orthopnea, Palpitations, Paroxysmal Nocturnal Dyspnea, Pedal Edema, Radiating Pain, Rapid Heart Rate, Slow Heart Rate, Syncope, Other - Respiratory Respiratory: absent: As Per HPI, Cough, Dyspnea, Hemoptysis, Dyspnea on Exertion, Wheezing, Snoring, Stridor, Pain on Inspiration, Chest Congestion, Excessive Mucous Production, Change in Mucous Color, Pain with Coughing, Other - Gastrointestinal Gastrointestinal: absent: As Per HPI, Abdominal Pain, Belching, Bloating, Change in Bowel Habits, Change in Stool Character, Coffee Ground Emesis, Constipation, Cramping, Diarrhea, Dyspepsia, Dysphagia, Early Satiety, Excessive Flatus, Fecal Incontinence, Heartburn, Hematemesis, Hematochezia, Loose Stools, Melena, Nausea, Odynophagia, Temesmus, Vomiting, Other - Musculoskeletal Musculoskeletal: absent: As Per HPI, Abnormal Gait, Arthralgias, Atrophy, Back Pain, Deformity, Joint Swelling, Limited Range of Motion, Loss of Height, Muscle Cramps, Muscle Weakness, Myalgias, Neck Pain, Numbness, Radiating Pain into Limb, Stiffness, Tingling, Other - Neurological Neurological: As Per HPI - Psychiatric Psychiatric: As Per HPI - Endocrine Endocrine: absent: As Per HPI, Change in Body Appearance, Change in Libido, Cold Intolorance, Deepening of Voice, Excessive Sweating, Fatigue, Flushing, Heat Intolorance, Increase in Ring/Shoe/Hat Size, Palpitations, Polydipsia, Polyphagia, Polyuria, Other Past Patient History - Infectious Disease Hx of Infectious Diseases: None - Tetanus Immunizations Tetanus Immunization: Unknown - Past Medical History & Family History Past Medical History?: Yes Past Family History: Reviewed and not pertinent - Past Social History Smoking Status: Never Smoked Chewing Tobacco Use: No Cigar Use: No Alcohol: None Drugs: Denies Home Situation {Lives}: Alone - CARDIAC Hx Cardiac Disorders: No Hx Hypercholesterolemia: Yes Hx Hypertension: Yes - PULMONARY Hx Tuberculosis: No - NEUROLOGICAL HX Cerebrovascular Accident: No Hx Seizures: Yes - HEENT Hx 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) - RENAL Hx Chronic Kidney Disease: No - ENDOCRINE/METABOLIC Hx Endocrine Disorders: Yes Hx Diabetes Mellitus Type 2: Yes - HEMATOLOGICAL/ONCOLOGICAL Hx Cancer: No Hx Human Immunodeficiency Virus (HIV): No - INTEGUMENTARY Hx Dermatological Problems: No - MUSCULOSKELETAL/RHEUMATOLOGICAL Hx Falls: No Hx Osteoarthritis: Yes Hx Osteoporosis: Yes - GASTROINTESTINAL Hx Gastrointestinal Disorders: No Hx Gastroesophageal Reflux: Yes - GENITOURINARY/GYNECOLOGICAL Hx Sexually Transmitted Disorders: No - PSYCHIATRIC Hx Depression: Yes Hx Substance Use: No - SURGICAL HISTORY Hx Surgeries: No - ANESTHESIA Hx Anesthesia: No Meds Allergies/Adverse Reactions: Allergies Allergy/AdvReac Type Severity Reaction Status Date / Time No Known Allergies Allergy Verified 01/22/18 00:19 - Medications Medications: Current Medications Acetaminophen (Tylenol 325mg Tab) 650 mg PO Q4 PRN PRN Reason: Pain, moderate (4-7) Last Admin: 04/09/18 08:37 Dose: 650 mg Acetaminophen/Butalbital/Caffeine (Fioricet) 1 tab PO Q8 PRN PRN Reason: Migraine headache Al Hydrox/Mg Hydrox/Simethicone (Maalox Plus 30 Ml) 30 ml PO Q4 PRN PRN Reason: Dyspepsia Alendronate Sodium (Fosamax) 70 mg PO QWK [facility] Amitriptyline HCl (Elavil) 50 mg PO HS [facility] Last Admin: 04/08/18 21:08 Dose: 50 mg Aspirin (Ecotrin) 81 mg PO DAILY [facility] Last Admin: 04/09/18 08:41 Dose: 81 mg Atorvastatin Calcium (Lipitor) 10 mg PO HS [facility] Last Admin: 04/08/18 21:08 Dose: 10 mg Bismuth Subsalicylate (Pepto-Bismol) 524 mg PO Q4 PRN PRN Reason: Diarrhea Clonazepam (Klonopin) 0.5 mg PO Q12 PRN PRN Reason: Anxiety Last Admin: 04/08/18 23:17 Dose: 0.5 mg Ergocalciferol (Drisdol 50,000 Intl Units Cap) 1 cap PO QWK [facility] Insulin Human Lispro (Humalog) 0 units SC [facility]; Protocol Last Admin: 04/09/18 08:43 Dose: Not Given Levetiracetam (Keppra) 750 mg PO Q12H [facility] Last Admin: 04/08/18 21:08 Dose: 750 mg Lorazepam (Ativan) 0.5 mg PO HS PRN PRN Reason: Insomnia Stop: 04/21/18 01:20 Lorazepam (Ativan) 0.5 mg PO Q6 PRN PRN Reason: Anixety/Agitation Stop: 04/21/18 01:20 Magnesium Hydroxide (Milk Of Magnesia) 30 ml PO HS PRN PRN Reason: Constipation Multivitamins/Minerals (Therapeutic-M Tab) 1 tab PO DAILY [facility] Last Admin: 04/09/18 08:39 Dose: 1 tab Pantoprazole Sodium (Protonix Ec Tab) 40 mg PO DAILY [facility] Last Admin: 04/09/18 08:39 Dose: 40 mg Sertraline HCl (Zoloft) 50 mg PO DAILY [facility] Last Admin: 04/09/18 08:39 Dose: 50 mg Physical Exam - Constitutional Appears: Well - Head Exam Head Exam: ATRAUMATIC, NORMAL INSPECTION, NORMOCEPHALIC - Eye Exam Eye Exam: EOMI, Normal appearance, PERRL - ENT Exam ENT Exam: Mucous Membranes Moist, Normal Exam - Neck Exam Neck exam: Positive for: Normal Inspection - Respiratory Exam Respiratory Exam: Clear to Auscultation Bilateral, NORMAL BREATHING PATTERN - Cardiovascular Exam Cardiovascular Exam: REGULAR RHYTHM - GI/Abdominal Exam GI & Abdominal Exam: Normal Bowel Sounds, Soft. absent: Tenderness - Rectal Exam Rectal Exam: Deferred - Neurological Exam Neurological exam: Alert, CN II-XII Intact, Normal Gait, Oriented x3, Reflexes Normal - Psychiatric Exam Psychiatric exam: Normal Affect, Normal Mood - Skin Skin Exam: Dry, Intact, Normal Color, Warm Results - Vital Signs Recent Vital Signs: Last Vital Signs Temp 97.1 F L 04/09/18 06:00 Pulse 83 04/09/18 06:00 Resp 18 04/09/18 06:00 BP 120/73 04/09/18 06:00 Pulse Ox 99 04/07/18 04:14 - Labs Result Diagrams: 04/06/18 21:05 04/06/18 21:05 Labs: Laboratory Results - last 24 hr 04/08/18 04/08/18 04/09/18 15:32 20:04 06:29 POC Glucose (mg/dL) 177 H 242 H 130 H 04/09/18 10:51 POC Glucose (mg/dL) 198 H Assessment & Plan (1) Migraine Assessment and Plan: Will start the patient on Topamax 25 mg daily for migraine prophylaxis. We will titrate up over the next two weeks. For treatment, we can give her a one time dose of Decadron 10 mg, Depakote 500 mg and Magnesium Sulfate 1 gram IV. Thank you for this consultation. Status: Acute (2) Seizure Assessment and Plan: Topamax can be started for both seizures and migraine prophylaxis. Status: Acute
[2018-04-09] MEDS ORDERED: Dexamethasone 10 MG in Dextrose 5% In Water 50 ML IV ONE (12:49)
[2018-04-09] MEDS ORDERED: Valproate 500 MG in Sodium Chloride 0.9% 100 ML IVPB ONE (12:49)
[2018-04-09] MEDS ORDERED: Magnesium Sulfate 1 GM in Dextrose 5% In Water 100 ML IVPB ONE (13:00)
[2018-04-09] MEDS: Apap-Butalbital-Caffeine 325-50-40mg Tab PO PRN ×2 (13:41→21:15)
[2018-04-10] MEDS: Pantoprazole 40 mg EC Tab PO SCH (09:17)
[2018-04-10] MEDS: Multivitamin With Minerals Tab PO SCH (09:17)
[2018-04-10] MEDS: Insulin Lispro (humaLOG) 100 Units/ml Inj SC SCH ×4 (09:18→21:03)
--- NOTE | 2018-04-10 11:17 | CP.PCM.CON ---
History of Present Illness - History of Present Illness History of Present Illness: PT is a 62 year old female admitted to [facility] and referred to the telegraphic typewriter operator for evaluation. Pt reported significant visual deficits influencing administration of DRS tasks. On the DRS, pt scored an overall score of 90> Pt evidenced significant deficits in Attention (patient only able to repeat 4 digits forward, 0 backward). Initiation deficient, Conceptualization deficient, Memory deficient and Construction tasks were not administered due to patient's visual deficits. Pt unable to draw commonalities between objects, initat ion/processing was very slow, patient only able to recall 10 items in a 60 second period and was perseverative on testing. Overal 90 Attention 20 Conceptaulization 20 Memory 10> Initiation 25> Signficiant deficits noted. Thank you for this referral, Dr. Das Past Patient History - Infectious Disease Hx of Infectious Diseases: None - Tetanus Immunizations Tetanus Immunization: Unknown - Past Medical History & Family History Past Medical History?: Yes Past Family History: Reviewed and not pertinent - Past Social History Smoking Status: Never Smoked Chewing Tobacco Use: No Cigar Use: No Alcohol: None Drugs: Denies Home Situation {Lives}: Alone - CARDIAC Hx Cardiac Disorders: No Hx Hypercholesterolemia: Yes Hx Hypertension: Yes - PULMONARY Hx Tuberculosis: No - NEUROLOGICAL HX Cerebrovascular Accident: No Hx Seizures: Yes - HEENT Hx 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) - RENAL Hx Chronic Kidney Disease: No - ENDOCRINE/METABOLIC Hx Endocrine Disorders: Yes Hx Diabetes Mellitus Type 2: Yes - HEMATOLOGICAL/ONCOLOGICAL Hx Cancer: No Hx Human Immunodeficiency Virus (HIV): No - INTEGUMENTARY Hx Dermatological Problems: No - MUSCULOSKELETAL/RHEUMATOLOGICAL Hx Falls: No Hx Osteoarthritis: Yes Hx Osteoporosis: Yes - GASTROINTESTINAL Hx Gastrointestinal Disorders: No Hx Gastroesophageal Reflux: Yes - GENITOURINARY/GYNECOLOGICAL Hx Sexually Transmitted Disorders: No - PSYCHIATRIC Hx Depression: Yes Hx Substance Use: No - SURGICAL HISTORY Hx Surgeries: No - ANESTHESIA Hx Anesthesia: No Meds Allergies/Adverse Reactions: Allergies Allergy/AdvReac Type Severity Reaction Status Date / Time No Known Allergies Allergy Verified 01/22/18 00:19 - Medications Medications: Current Medications Acetaminophen (Tylenol 325mg Tab) 650 mg PO Q4 PRN PRN Reason: Pain, moderate (4-7) Last Admin: 04/09/18 08:37 Dose: 650 mg Acetaminophen/Butalbital/Caffeine (Fioricet) 1 tab PO Q8 PRN PRN Reason: Migraine headache Last Admin: 04/09/18 21:15 Dose: 1 tab Al Hydrox/Mg Hydrox/Simethicone (Maalox Plus 30 Ml) 30 ml PO Q4 PRN PRN Reason: Dyspepsia Alendronate Sodium (Fosamax) 70 mg PO QWK [facility] Amitriptyline HCl (Elavil) 50 mg PO HS [facility] Last Admin: 04/09/18 21:50 Dose: 50 mg Aspirin (Ecotrin) 81 mg PO DAILY [facility] Last Admin: 04/10/18 09:17 Dose: 81 mg Atorvastatin Calcium (Lipitor) 10 mg PO HS [facility] Last Admin: 04/09/18 21:50 Dose: 10 mg Bismuth Subsalicylate (Pepto-Bismol) 524 mg PO Q4 PRN PRN Reason: Diarrhea Clonazepam (Klonopin) 0.5 mg PO Q12 PRN PRN Reason: Anxiety Last Admin: 04/10/18 00:38 Dose: 0.5 mg Ergocalciferol (Drisdol 50,000 Intl Units Cap) 1 cap PO QWK [facility] Insulin Human Lispro (Humalog) 0 units SC [facility]; Protocol Last Admin: 04/10/18 09:18 Dose: Not Given Lorazepam (Ativan) 0.5 mg PO HS PRN PRN Reason: Insomnia Stop: 04/21/18 01:20 Lorazepam (Ativan) 0.5 mg PO Q6 PRN PRN Reason: Anixety/Agitation Stop: 04/21/18 01:20 Magnesium Hydroxide (Milk Of Magnesia) 30 ml PO HS PRN PRN Reason: Constipation Multivitamins/Minerals (Therapeutic-M Tab) 1 tab PO DAILY [facility] Last Admin: 04/10/18 09:17 Dose: 1 tab Pantoprazole Sodium (Protonix Ec Tab) 40 mg PO DAILY [facility] Last Admin: 04/10/18 09:17 Dose: 40 mg Sertraline HCl (Zoloft) 50 mg PO DAILY [facility] Last Admin: 04/10/18 09:17 Dose: 50 mg Topiramate (Topamax) 25 mg PO BID [facility] Last Admin: 04/10/18 09:16 Dose: 25 mg Results - Vital Signs Recent Vital Signs: Last Vital Signs Temp 97.9 F 04/10/18 05:28 Pulse 74 04/10/18 05:28 Resp 18 04/10/18 05:28 BP 138/84 04/10/18 05:28 Pulse Ox 99 04/07/18 04:14 - Labs Result Diagrams: 04/06/18 21:05 04/06/18 21:05 Labs: Laboratory Results - last 24 hr 04/09/18 04/09/18 04/10/18 15:34 20:19 05:05 POC Glucose (mg/dL) 135 H 148 H 108
--- NOTE | 2018-04-10 12:50 | PCM.PYCHPN ---
Psychiatric Progress Note - Psychiatric Progress Note Patient seen today, length of contact: Pt evaluated, case discussed with team, chart reviewed Patient Chief Complaint: "I'm depressed." Problems Identified/Issues Discussed: Patient continues to report feeling depressed and anxious. She has poor insight into her lack of compliance with treatment and medications. Psychoeducation provided. No SI/HI. Medication Change: No Medical Record Reviewed: Yes Consults ordered or reviewed: Medicine consult Psychology consult: PT is a 62 year old female admitted to [facility] and referred to the lyric writer for evaluation. Pt reported significant visual deficits influencing administration of DRS tasks. On the DRS, pt scored an overall score of 90> Pt evidenced significant deficits in Attention (patient only able to repeat 4 digits forward, 0 backward). Initiation deficient, Conceptualization deficient, Memory deficient and Construction tasks were not administered due to patient's v isual deficits. Pt unable to draw commonalities between objects, initation/processing was very slow, patient only able to recall 10 items in a 60 second period and was perseverative on testing. Overal 90 Attention 20 Conceptaulization 20 Memory 10> Initiation 25> Signficiant deficits noted. Thank you for this referral, Dr. Das Mental Status Examination - Cognitive Function Orientation: Person, Place, Situation, Time (Mar 2018) Memory: Impaired Attention: Poor Concentration: Poor Association: WNL Fund of Knowledge: WN Decription of patient's judgement and insights: Improving I/J - Mood Mood: Depressed, Anxious - Affect Affect: Constricted - Formal Thought Process Formal Thought Process: No Impairment Psychotic Thoughts and Behaviors: No AH/VH/paranoia/delusions - Suicidal Ideation Suicidal Ideation: No - Homicidal Ideation Homicidal Ideation: No Goal/Treatment Plan - Goal/Treatment Plan Need for Continued Stay: Remain at risks for inpatient hospitalization, Severe depression anxiety Progress Toward Problem(s) and Goals/Treatment Plan: Major Depressive Disorder; Generalized Anxiety Disorder; Dementia -Continue Amitriptyline -Medicine consult -Continue Zoloft -Neurology consult -Individual and group therapy -Disposition planning Estimated Date of D/C: 04/14/18
[2018-04-11 06:39] VITALS: BP 153/89; PULSE 84; RESP 19; TEMP 97.4
--- NOTE | 2018-04-11 09:19 | PCM.RRT ---
Addendum entered and electronically signed by Lizzie Juárez MD 04/11/18 19:02: Patient was seen and examined during PARTS REPRESENTATIVE . PARTS REPRESENTATIVE called on 62 year old female with PMH Depression , HTN , DM , dyslipidemia, seizure disorder for breakthrough seizure.patient has been not compliant with her medications. Neurology was consulted recently and had started her on Topamax that she did not take. Patient at present postictal Bp elevated 173/66 HR 109 saturating 100 % on venti mask Labs ordered , including CBC, CMP , Prolactin , CT head without contrast Will discharge patient to ER for acte care observation in telemetry Will follow up ordered tests Original Note: PARTS REPRESENTATIVE Nurse Assessment - Situation PARTS REPRESENTATIVE Responder Arrival Time: 08:57 Location: 3NS Room Number: 306 PARTS REPRESENTATIVE Called By: RN - IV IV Inserted during PARTS REPRESENTATIVE?: Yes New IV Insertion Tolerance:: Good - Respiratory Oxygen Delivery Method: Mask - Diagnostic Test Ordered EKG: No Chest X-Ray: No - Stat Labs Ordered PARTS REPRESENTATIVE Stat Labs Ordered: CBC, BMP, PT/PTT PARTS REPRESENTATIVE Other Labs Ordered: Magnesium and phos CPR started during PARTS REPRESENTATIVE?: No - Arabella Coma Scale Coma Scale Eye Opening: To verbal stimuli - Time PARTS REPRESENTATIVE Ended Time PARTS REPRESENTATIVE Ended: 09:12 - Vital Signs at end of PARTS REPRESENTATIVE Vital Signs at end of PARTS REPRESENTATIVE: BP: 173/66 HR: 109; O2 sat: 100% on mask. - Recommendations PARTS REPRESENTATIVE Level of Care Recommendations: Discharge to Emergency Room (discharge from Psych to ER.) I.Reason for PARTS REPRESENTATIVE - A) Acute Change in Patient: (Select all that apply): Staff member or family is worried about patient Subjective: S: Patient was sitting down eating breakfast and began sliding out of chair and started having jerking movements of all extremities. No urinary or fecal incontinence. This was witnessed by a nurse. O: Vitals: 143/117 ; HR: 86 ; O2 Sat: 100% on mask A/P: 62 yo f with history of CHF, HTN, diabetes, hypercholesterolemia, schizophrenia and seizures history- PARTS REPRESENTATIVE called for seizure, patient found to be hypertensive and will be discharge from psych to the E.R. PARTS REPRESENTATIVE Outcome: Patient will be discharged and transferred to the ER for hypertension PARTS REPRESENTATIVE vitals: 176/66; HR 109 PARTS REPRESENTATIVE end: 9:12 PARTS REPRESENTATIVE Leader: Dr. Juárez PARTS REPRESENTATIVE residents: Dr. Cici Vernon- PGY3, Dr. Michelle Giron PGY-[address] Dasha Bowie PGY-1 - Respiratory Oxygen Delivery Method: Face Mask @% (100%) - Constitutional Appears: Non-toxic, No Acute Distress - Head Head Exam: NORMAL INSPECTION - Neurological Exam Neurological Exam: Awake (responds to verbal stimuli; baseline is confusion. ) - Extremities Exam Extremities Exam: Normal Inspection
[2018-04-11 09:30] LABS: BASO % 0.2 % (0.0-2.0); EOS # 0.1 K/uL (0.0-0.7); EOS % 0.6 % (0.0-4.0); HEMOGLOBIN 12.4 g/dL (12.0-16.0); LYMPH # 6.8 K/uL (1.0-4.3); LYMPH % 37.4 % (20.0-40.0); MEAN CELL VOLUME 81.9 fl (81.0-99.0); MEAN CORPUSCULAR HEMOGLOBIN 29.4 pg (27.0-31.0); MEAN CORPUSCULAR HGB CONC 35.8 g/dL (33.0-37.0); MONO # 0.9 K/uL (0.0-0.8); NEUT # 10.3 K/uL (1.8-7.0); NEUT % 56.8 % (50.0-75.0); NRBC % 0.1 % (0.0-0.0); RBC 4.24 Mil/uL (3.80-5.20); RED CELL DISTRIBUTION WIDTH 14.6 % (11.5-14.5); WHITE BLOOD COUNT 18.1 K/uL (4.8-10.8)
[2018-04-11 10:24] LABS: PROTHROMBIN TIME 11.5 Seconds (9.8-13.1)
[2018-04-11 11:25] LABS: ALB/GLOB RATIO 1.3 (1.0-2.1); ALBUMIN 4.9 g/dL (3.5-5.0); ALT/SGPT 29 U/L (9-52); AST/SGOT 35 U/L (14-36); BLOOD UREA NITROGEN 16 mg/dl (7-17); CALCIUM 10.1 mg/dL (8.4-10.2); GFR NON-AFRICAN AMERICAN > 60
--- NOTE | 2018-04-12 14:16 | PCM.PYCHDC ---
Mental Status Examination - Mental Status Examination Orientation: Person, Place Discharge Summary - Discharge Note Reason for Hospitalization: 62 yo female presents w/ worsening depression, poor sleep, poor appetite, reports not eating for 5 days, poor memory, feelings of hopelessness, feelings frustrated that her son does not visit her more and care for her more. No current AH/VH/paranoia/delusions. NO SI/HI. A + O x self and hospital, not orie nted to date. Consultations:: List each consultation separately and include: 1. Reason for request. 2. Findings. 3. Follow-up Summary of Hospital Course include:: 1. Description of specific treatment plan utilized for patients during their course of treatmen. 2. Summarize the time- course for resolution of acute symptoms and/or regressed behaviors. 3. Describe issues identified and worked on during hospitalization. 4. Describe medication utilized. 5. Describe medical problems identified and treated. 6. Reassessment of suicide risk Summary of Hospital Course: pt has not been evaluated by the undersigned NATURAL RESOURCE OFFICER was called before arrival on the unit due to seizure and pt had to be transferred to medicine - Final Diagnosis (DSM 5) Condition upon Discharge: STABLE DSM 5: major depression Disposition: Trans to Other Acute Care Hosp
[2018-04-13 16:05] LABS: PROLACTIN 46.8 ng/mL (3.0-18.9)
== END 2018-04-11 09:15 | disposition short-term general hospital (02) | DRG 881 ==
LOC: H.ER 19:31 → H.ERHOLD 04-07 00:30 → H.STEP 04-07 01:16
PROVIDERS: ADMIT Psychiatry & Neurology Psychiatry; ATTEND Psychiatry & Neurology Psychiatry
PROC: GZHZZZZ Group Psychotherapy (ICD-10-PCS; principal; 2018-04-07)
PROC: GZ58ZZZ Individual Psychotherapy, Cognitive-Behavioral (ICD-10-PCS; 2018-04-07)
DX: F32.9 Major depressive disorder, single episode, unspecified (principal); F03.90 Unspecified dementia, unspecified severity, without behavioral disturbance, psychotic disturbance, mood disturbance, and anxiety; G43.909 Migraine, unspecified, not intractable, without status migrainosus; F41.1 Generalized anxiety disorder; R56.9 Unspecified convulsions; F20.9 Schizophrenia, unspecified; I10 Essential (primary) hypertension; I25.10 Atherosclerotic heart disease of native coronary artery without angina pectoris; E78.5 Hyperlipidemia, unspecified; E11.9 Type 2 diabetes mellitus without complications; E78.00 Pure hypercholesterolemia, unspecified; K21.9 Gastro-esophageal reflux disease without esophagitis; M81.0 Age-related osteoporosis without current pathological fracture; M19.90 Unspecified osteoarthritis, unspecified site; H54.61 Unqualified visual loss, right eye, normal vision left eye; Z91.14 Patient's other noncompliance with medication regimen; Z91.19 Patient's noncompliance with other medical treatment and regimen; Z79.82 Long term (current) use of aspirin

== ENCOUNTER 2018-04-11 09:25 | Inpatient (IN) | payer MEDICARE, MEDICAID ==
[2018-04-11 09:38] VITALS: PULSE 73; BMI 25.7
--- NOTE | 2018-04-11 09:50 | ED PDOC ---
HPI: Seizure Time Seen by Provider: 04/11/18 09:46 Chief Complaint (Nursing): Seizure Chief Complaint (Provider): Seizure History Per: Patient History/Exam Limitations: no limitations Recent Seizure Activity Began: Just Before Arrival Number Of Seizures: One Length Of Seizures (Duration): Seconds (x30) Additional Complaint(s): 62 y/o female with a PMHx of Anxiety, CAD, CHF, Dementia, Depression, HTN, Hypercholesterolemia, Migraine, Osteoporosis and Schizophrenia transferred from [facility] for a witnessed seizure activity, onset prior to arrival. Seizure was described as circular motions of the upper extremities and lasted approximately 30 seconds. Patient has no previous history of seizures. PMD: Lizzie Juárez Past Medical History Reviewed: Historical Data, Nursing Documentation, Vital Signs Vital Signs: Last Vital Signs Temp 98.6 F 04/11/18 09:40 Pulse 108 H 04/11/18 09:40 Resp 17 04/11/18 09:40 BP 146/85 04/11/18 09:40 Pulse Ox 98 04/11/18 09:40 - Medical History PMH: Anxiety (as per patient), CAD (as per day care center facesheet), CHF, Dementia, Depression, HTN, Hypercholesterolemia, Migraine, Osteoporosis, Schizophrenia (as per daycare center facesheet) Denies: Diabetes, Hepatitis, HIV, Chronic Kidney Disease, Sexually Transmitted Disease - Surgical History Surgical History: No Surg Hx - Family History Family History: States: Unknown Family Hx - Home Medications Home Medications: Ambulatory Orders Medication Instructions Recorded Atorvastatin [Lipitor] 10 mg PO HS 09/04/17 Calcium/Mag/D3/B12/FA/B6/[place] 1 tab PO DAILY 09/04/17 [Folgard Os Tablet] Carvedilol [Coreg] 25 mg PO Q12 09/04/17 Digoxin [Digitek] 125 mcg PO DAILY 09/04/17 Ergocalciferol (Vitamin D2) 50,000 unit PO QWK 09/04/17 [Vitamin D2] Spironolactone [Aldactone] 25 mg PO DAILY 09/04/17 Aspirin [Adult Low Dose Aspirin EC] 81 mg PO DAILY 09/05/17 Divalproex [Depakote DR(*BID*)] 500 mg PO BID #60 tcp 09/09/17 Acetaminophen [Tylenol 325mg tab] 650 mg PO Q4 PRN tab 10/23/17 PARoxetine [Paxil] 40 mg PO HS tab 10/23/17 Pantoprazole [Protonix EC Tab] 40 mg PO DAILY ect 10/23/17 clonazePAM [Klonopin] 0.5 mg PO Q12 tab 10/23/17 Acetaminophen [Tylenol 325mg tab] 650 mg PO Q6 PRN tab 01/23/18 Alendronate Sodium [Binosto] 70 mg PO QWK 04/07/18 Amitriptyline HCl 50 mg PO HS 04/07/18 Calcium/Mag/D3/B12/FA/B6/[place] 1 tab PO DAILY 04/07/18 [Folgard Os] Ibuprofen [Motrin Tab] 800 mg PO Q12H 04/07/18 Levetiracetam [Keppra] 750 mg PO Q12H 04/07/18 Linagliptin/Metformin HCl 2.5 mg PO DAILY 04/07/18 [Jentadueto Xr 2.5 mg-1,000 mg] Lisinopril [Zestril] 2.5 mg PO DAILY 04/07/18 Losartan Potassium 25 mg PO DAILY 04/07/18 Meclizine [Antivert] 12.5 mg PO Q8H PRN 04/07/18 Omeprazole 20 mg PO DAILY 04/07/18 Torsemide [Demadex] 20 mg PO DAILY 04/07/18 - Allergies Allergies/Adverse Reactions: Allergies Allergy/AdvReac Type Severity Reaction Status Date / Time No Known Allergies Allergy Verified 01/22/18 00:19 Review of Systems ROS Statement: Except As Marked, All Systems Reviewed And Found Negative Neurological: Positive for: Seizures Physical Exam - Reviewed Nursing Documentation Reviewed: Yes Vital Signs Reviewed: Yes - Physical Exam Appears: Positive for: No Acute Distress Head Exam: Positive for: ATRAUMATIC, NORMOCEPHALIC Skin: Positive for: Normal Color, Warm, Dry Eye Exam: Positive for: Normal appearance, EOMI, PERRL Neck: Positive for: Normal, Painless ROM, Supple Cardiovascular/Chest: Positive for: Regular Rate, Rhythm. Negative for: Murmur Respiratory: Positive for: Normal Breath Sounds. Negative for: Respiratory Distress Gastrointestinal/Abdominal: Positive for: Normal Exam, Soft. Negative for: Tenderness Back: Positive for: Normal Inspection. Negative for: L CVA Tenderness, R CVA Tenderness, Vertebral Tenderness Extremity: Positive for: Normal ROM. Negative for: Pedal Edema, Deformity Neurologic/Psych: Positive for: Alert, Oriented. Negative for: Motor/Sensory Deficits - ECG O2 Sat by Pulse Oximetry: 98 (RA) Pulse Ox Interpretation: Normal Medical Decision Making Medical Decision Making: Time: 946 Plan: -- CT Head w/o Contrast -- CMP -- CBC with differentials -- CXR Two Views -- Admit to Hospital Route Scribe Attestation: Documented by Wilbert Serna, acting as a scribe Jose A Amaral MD. Provider Scribe Attestation: All medical record entries made by the Scribe were at my direction and personally dictated by me. I have reviewed the chart and agree that the record accurately reflects my personal performance of the history, physical exam, medical decision making, and the department course for this patient. I have also personally directed, reviewed, and agree with the discharge instructions and disposition. Disposition - Clinical Impression Clinical Impression: Seizure disorder - Patient ED Disposition Is Patient to be Admitted: Yes - Disposition Referrals: Lizzie Juárez MD [Primary Care Provider] - Disposition Time: 10:02 Condition: FAIR Forms: [facility] (Indonesian) - Pt Status Changed To: Hospital Disposition Of: Inpatient - Admit Certification Admit to Inpatient:: After my assessment, the patient will require hospitalization for at least two midnights. This is because of the severity of symptoms shown, intensity of services needed, and/or the medical risk in this patient being treated as an outpatient. - POA Present On Arrival: None
--- NOTE | 2018-04-11 11:47 | CT ---
Date of service: 04/11/2018 PROCEDURE: CT HEAD WITHOUT CONTRAST. HISTORY: r/o bleed COMPARISON: Comparison is made with 02/07/2018 TECHNIQUE: Axial computed tomography images were obtained through the head/brain without intravenous contrast. Radiation dose: Total exam DLP = 822.34 mGy-cm. This CT exam was performed using one or more of the following dose reduction techniques: Automated exposure control, adjustment of the mA and/or kV according to patient size, and/or use of iterative reconstruction technique. FINDINGS: HEMORRHAGE: No intracranial hemorrhage. BRAIN: No mass effect or edema. No atrophy or chronic microvascular ischemic changes. VENTRICLES: Unremarkable. No hydrocephalus. CALVARIUM: Unremarkable. PARANASAL SINUSES: Unremarkable as visualized. No significant inflammatory changes. MASTOID AIR CELLS: Unremarkable as visualized. No inflammatory changes. OTHER FINDINGS: None. IMPRESSION: No evidence of acute intracranial hemorrhage mass effect or midline shift. No significant interval changes since prior study.
--- NOTE | 2018-04-11 14:00 | CP.PCM.HP ---
Addendum entered and electronically signed by Lizzie Juárez MD 04/11/18 18:38: Patient was seen and examined . All chart and clinical data reviewed . Case discussed with resident.Agree with assessment and plan. 62 y/o F with PMH depression , HTN seizure disorder , not compliant with medications being placed under observation for breakthrough seizure . Neurology consulted Started Vimpat CT heda showed no acute pathology Leukocytosis-- most likely reactive Back to her baseline Will consult Psychiatry Original Note: History of Present Illness - History of Present Illness History of Present Illness: This is 62 y/o female with PMH of HTN, Seizure disorder (not compliant with Keppra), Migraine, DMII, depression and schizophrenia admitted to [facility] for evaluation and treatment of seizure/pseudo-seizure. Patient was admitted to psych inpatient service for evaluation and treatment of depression on 04/06/18. This morning DESIGN DIRECTOR was called on the patient at psych inpatient service for evaluation and treatment of seizure like episode and patient was transferred to the ER for further assessments. During DESIGN DIRECTOR, Seizure was described as circular motions of the upper extremities and lasted approximately 30 seconds. As per patient her last seizure was 5 days ago prior to the psych admission. Patient was seen by neuro, Dr. Paz 3 days ago who started patient on Topamax 25 mg for both seizures and migraine prophylaxis and given one time dose of Decadron 10 mg, Depakote 500 mg and Magnesium Sulfate 1 gram IV. During DESIGN DIRECTOR patient was confused and drowsy. Patient currently alert, awake oriented, NAD, denies any chest pain, SOB, dizziness, palpitations, abdominal pain, urinary symptoms or any weakness. PMH: HTN, Seizure disorder (not compliant with Keppra), Migraine, DMII, depression and schizophrenia PSH: Denies Allg: NKDA Meds: See med rec FH: + for stroke, but denies any seizures or cancers SH: ; Lives alone with Health Aide daily for 5hrs; attends Adult Day Care daily; Never Smoked; no Alcohol use; No illegal drug use ROS: As per HPI ED Course: VS: 98.6, 108 HR, RR 17, 146/85, Spo2 98 CBC: WBC 18.1 CMP: wnl CXR: No acute changes, prelim CT head: No acute changes S/p Ativan 1 mg IV Present on Admission - Present on Admission Any Indicators Present on Admission: No History of DVT/PE: No History of Uncontrolled Diabetes: No Urinary Catheter: No Decubitus Ulcer Present: No Past Patient History - Infectious Disease Hx of Infectious Diseases: None - Tetanus Immunizations Tetanus Immunization: Unknown - Past Medical History & Family History Past Medical History?: Yes - Past Social History Smoking Status: Never Smoked - CARDIAC Hx Congestive Heart Failure: Yes Hx Hypercholesterolemia: Yes Hx Hypertension: Yes - PULMONARY Hx Tuberculosis: No - NEUROLOGICAL Hx Dementia: Yes Hx Migraine: Yes - HEENT Hx 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) - RENAL Hx Chronic Kidney Disease: No - ENDOCRINE/METABOLIC Hx Endocrine Disorders: Yes Hx Diabetes Mellitus Type 2: Yes - HEMATOLOGICAL/ONCOLOGICAL Hx Human Immunodeficiency Virus (HIV): No - INTEGUMENTARY Hx Dermatological Problems: No - MUSCULOSKELETAL/RHEUMATOLOGICAL Hx Osteoporosis: Yes - GASTROINTESTINAL Hx Gastrointestinal Disorders: No Hx Gastroesophageal Reflux: Yes - GENITOURINARY/GYNECOLOGICAL Hx Sexually Transmitted Disorders: No - PSYCHIATRIC Hx Anxiety: Yes (as per patient) Hx Depression: Yes Hx Schizophrenia: Yes (as per daycare center facesheet) Hx Substance Use: No - SURGICAL HISTORY Hx Surgeries: No - ANESTHESIA Hx Anesthesia: No Meds Allergies/Adverse Reactions: Allergies Allergy/AdvReac Type Severity Reaction Status Date / Time No Known Allergies Allergy Verified 01/22/18 00:19 Physical Exam - Constitutional Appears: No Acute Distress - Head Exam Head Exam: NORMAL INSPECTION - Eye Exam Eye Exam: Normal appearance Additional comments: Chronically, Blind to both eyes - ENT Exam ENT Exam: Mucous Membranes Moist - Neck Exam Neck exam: Positive for: Normal Inspection - Respiratory Exam Respiratory Exam: Clear to Auscultation Bilateral, NORMAL BREATHING PATTERN. absent: Chest Wall Tenderness, Decreased Breath Sounds - Cardiovascular Exam Cardiovascular Exam: REGULAR RHYTHM, +S1, +S2 - GI/Abdominal Exam GI & Abdominal Exam: Normal Bowel Sounds, Soft. absent: Distended, Tenderness - Extremities Exam Extremities exam: Positive for: normal capillary refill, normal inspection, pedal pulses present. Negative for: pedal edema, tenderness - Back Exam Back exam: NORMAL INSPECTION. absent: CVA tenderness (L), CVA tenderness (R) - Neurological Exam Neurological exam: Alert, CN II-XII Intact, Normal Gait, Oriented x3 - Psychiatric Exam Psychiatric exam: Normal Affect - Skin Skin Exam: Normal Color Results - Vital Signs Recent Vital Signs: Last Vital Signs Temp 98.6 F 04/11/18 09:40 Pulse 105 H 04/11/18 13:47 Resp 18 04/11/18 13:47 BP 110/76 04/11/18 13:47 Pulse Ox 100 04/11/18 13:47 Assessment & Plan - Assessment and Plan (Free Text) Assessment: A/P: 62 y/o female with PMH of HTN, Seizure disorder (not compliant with Keppra), Migraine, DMII, depression and schizophrenia admitted to [facility] for evaluation and treatment of seizure/pseudo-seizure. Seizures - Acute on chronic - Consult, Neuro, Dr. Paz, will follow recommendations - C/w Topamax for now - Monitor/serial neuro exams Hypertension - Chronic, Controlled - Will hold both Lisinopril, Losartan, Coreg and Demadex - Echo 10/15: >60 EF Migraine - Consult, Neuro, Dr. Paz, will follow recommendations - C/w Topamax for now - Monitor/serial neuro exams DMII - HBA1C: 5.8, 04/07/18 - Accuchek ACHS - Sliding scale, low dose Depression/schizophrenia/Mood disorders - Consult, psych, Dr. Camara, will follow recommendations - C/w PRN Klonopin, Amptriptyline 50mg HS daily, Ativan 0.5 Q6 PRN, Zoloft 50mg daily GERD - C/w PPI DVT PPX - SCD for now Diet: Regular Full COde
[2018-04-11] MEDS ORDERED: Magnesium Hydroxide Susp 30 ml UD PO PRN (14:09)
[2018-04-11] MEDS ORDERED: Ergocalciferol 50,000 Intl Units Cap PO SCH (14:15)
[2018-04-11] MEDS ORDERED: ALENDRONATE 70 MG TAB PO SCH (14:15)
--- NOTE | 2018-04-11 17:11 | CP.PCM.CON ---
History of Present Illness - History of Present Illness History of Present Illness: Neurology Consultation Note: Mrs. Gabriel is a 62-year-old woman with a past medical history of seizure disorder, psychiatric illness, who I had seen on the psychiatry floor, and she was on Keppra, but refused to take it. She was started on Topamax, but did not want to take that either. She subsequently had two witnessed seizures. Currently, she is at baseline. We discussed starting her on Vimpat. She agreed to take it. Review of Systems - Constitutional Constitutional: absent: As Per HPI, Anorexia, Chills, Daytime Sleepiness, Excessive Sweating, Fatigue, Fever, Frequent Falls, Headache, Increased Appetite, Lethargy, Malaise, Night Sweats, Snoring, Sleep Apnea, Weight Gain, Weight Loss, Weakness, Other - EENT Eyes: absent: As Per HPI, Blind Spots, Blurred Vision, Change in Vision, Decreased Night Vision, Diplopia, Discharge, Dry Eye, Exophthalmos, Floaters, Irritation, Itchy Eyes, Loss of Peripheral Vision, Pain, Photophobia, Requires Corrective Lenses, Sees Flashes, Spots in Vision, Tunnel Vision, Other Visual Disturbances, Loss of Vision, Other Ears: absent: As Per HPI, Decreased Hearing, Ear Discharge, Ear Pain, Tinnitus, Abnormal Hearing, Disequilibrium, Dizziness, Other Nose/Mouth/Throat: absent: As Per HPI, Epistaxis, Nasal Congestion, Nasal Disch arge, Nasal Obstruction, Nasal Trauma, Nose Pain, Post Nasal Drip, Sinus Pain, Sinus Pressure, Bleeding Gums, Change in Voice, Dental Pain, Dry Mouth, Dysphagia, Halitosis, Hoarsness, Lip Swelling, Mouth Lesions, Mouth Pain, Odynophagia, Sore Throat, Throat Swelling, Tongue Swelling, Facial Pain, Neck Pain, Neck Mass, Other - Breasts Breasts: absent: As Per HPI, Change in Shape, Mass, Pain, Nipple Discharge, Nipple Inversion, Skin Changes, Swelling, Other - Cardiovascular Cardiovascular: absent: As Per HPI, Acrocyanosis, Chest Pain, Chest Pain at Rest, Chest Pain with Activity, Claudication, Diaphoresis, Dyspnea, Dyspnea on Exertion, Edema, Irregular Heart Rhythm, Pain Radiating to Arm/Neck/Jaw, Leg Edema, Leg Ulcers, Lightheadedness, Orthopnea, Palpitations, Paroxysmal Nocturnal Dyspnea, Pedal Edema, Radiating Pain, Rapid Heart Rate, Slow Heart Rate, Syncope, Other - Respiratory Respiratory: absent: As Per HPI, Cough, Dyspnea, Hemoptysis, Dyspnea on Exertion, Wheezing, Snoring, Stridor, Pain on Inspiration, Chest Congestion, Excessive Mucous Production, Change in Mucous Color, Pain with Coughing, Other - Gastrointestinal Gastrointestinal: absent: As Per HPI, Abdominal Pain, Belching, Bloating, Change in Bowel Habits, Change in Stool Character, Coffee Ground Emesis, Constipation, Cramping, Diarrhea, Dyspepsia, Dysphagia, Early Satiety, Excessive Flatus, Fecal Incontinence, Heartburn, Hematemesis, Hematochezia, Loose Stools, Melena, Nausea, Odynophagia, Temesmus, Vomiting, Other - Genitourinary Genitourinary: absent: As Per HPI, Change in Urinary Stream, Difficulty Urinating, Dysuria, Flank Pain, Hematuria, Pyuria, Nocturia, Urinary Incontinence, Urinary Frequency, Urinary Hesitance, Urinary Urgency, Voiding Freq/Small Amts, Freq UTI, Hx Renal/Bladder Calculi, Hx /Renal Surgery, Bladder Distension, Other - Musculoskeletal Musculoskeletal: absent: As Per HPI, Abnormal Gait, Arthralgias, Atrophy, Back Pain, Deformity, Joint Swelling, Limited Range of Motion, Loss of Height, Muscle Cramps, Muscle Weakness, Myalgias, Neck Pain, Numbness, Radiating Pain into Limb, Stiffness, Tingling, Other - Integumentary Integumentary: absent: As Per HPI, Acne, Alopecia, Bleeding Lesions, Change in Hair, Change in Nails, Change in Pigmentation, Changing Lesions, Dry Skin, Erythema, Furuncle, Hirsutism, Lesions, New Lesions, Non-Healing Lesions, Photosensitivity, Pruritus, Rash, Skin Pain, Skin Ulcer, Sores, Striae, Swelling, Unusual Bruising, Wounds, Jaundice, Other - Neurological Neurological: As Per HPI - Psychiatric Psychiatric: As Per HPI - Endocrine Endocrine: absent: As Per HPI, Change in Body Appearance, Change in Libido, Cold Intolorance, Deepening of Voice, Excessive Sweating, Fatigue, Flushing, Heat Intolorance, Increase in Ring/Shoe/Hat Size, Palpitations, Polydipsia, Polyphagia, Polyuria, Other Past Patient History - Infectious Disease Hx of Infectious Diseases: None - Tetanus Immunizations Tetanus Immunization: Unknown - Past Medical History & Family History Past Medical History?: Yes - Past Social History Smoking Status: Never Smoked - CARDIAC Hx Congestive Heart Failure: Yes Hx Hypercholesterolemia: Yes Hx Hypertension: Yes - PULMONARY Hx Tuberculosis: No - NEUROLOGICAL Hx Dementia: Yes Hx Migraine: Yes - HEENT Hx 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) - RENAL Hx Chronic Kidney Disease: No - ENDOCRINE/METABOLIC Hx Endocrine Disorders: Yes Hx Diabetes Mellitus Type 2: Yes - HEMATOLOGICAL/ONCOLOGICAL Hx Human Immunodeficiency Virus (HIV): No - INTEGUMENTARY Hx Dermatological Problems: No - MUSCULOSKELETAL/RHEUMATOLOGICAL Hx Osteoporosis: Yes - GASTROINTESTINAL Hx Gastrointestinal Disorders: No Hx Gastroesophageal Reflux: Yes - GENITOURINARY/GYNECOLOGICAL Hx Sexually Transmitted Disorders: No - PSYCHIATRIC Hx Anxiety: Yes (as per patient) Hx Depression: Yes Hx Schizophrenia: Yes (as per daycare center facesheet) Hx Substance Use: No - SURGICAL HISTORY Hx Surgeries: No - ANESTHESIA Hx Anesthesia: No Meds Allergies/Adverse Reactions: Allergies Allergy/AdvReac Type Severity Reaction Status Date / Time No Known Allergies Allergy Verified 01/22/18 00:19 - Medications Medications: Current Medications Acetaminophen (Tylenol 325mg Tab) 650 mg PO Q4 PRN PRN Reason: Headache Alendronate Sodium (Fosamax) 70 mg PO QWK [facility] Amitriptyline HCl (Elavil) 50 mg PO HS [facility] Aspirin (Ecotrin) 81 mg PO DAILY [facility] Atorvastatin Calcium (Lipitor) 10 mg PO HS [facility] Clonazepam (Klonopin) 0.5 mg PO Q12 PRN PRN Reason: Agitation Ergocalciferol (Drisdol 50,000 Intl Units Cap) 1 cap PO QWK [facility] Insulin Detemir (Levemir) 0 units SC HS [facility]; Protocol Lorazepam (Ativan) 0.5 mg PO Q6 PRN PRN Reason: Agitation Magnesium Hydroxide (Milk Of Magnesia) 30 ml PO HS PRN PRN Reason: Constipation Pantoprazole Sodium (Protonix Ec Tab) 40 mg PO DAILY [facility] Sertraline HCl (Zoloft) 50 mg PO DAILY [facility] Topiramate (Topamax) 25 mg PO BID [facility] Physical Exam - Constitutional Appears: Well - Head Exam Head Exam: ATRAUMATIC, NORMAL INSPECTION, NORMOCEPHALIC - Eye Exam Eye Exam: EOMI, Normal appearance, PERRL - ENT Exam ENT Exam: Mucous Membranes Moist, Normal Exam - Neck Exam Neck exam: Positive for: Normal Inspection - Respiratory Exam Respiratory Exam: Clear to Auscultation Bilateral, NORMAL BREATHING PATTERN - Cardiovascular Exam Cardiovascular Exam: REGULAR RHYTHM - GI/Abdominal Exam GI & Abdominal Exam: Normal Bowel Sounds, Soft. absent: Tenderness - Neurological Exam Neurological exam: Alert, CN II-XII Intact, Normal Gait, Oriented x3, Reflexes Normal - Psychiatric Exam Psychiatric exam: Normal Affect, Normal Mood - Skin Skin Exam: Dry, Intact, Normal Color, Warm Results - Vital Signs Recent Vital Signs: Last Vital Signs Temp 98.1 F 04/11/18 16:03 Pulse 106 H 04/11/18 16:03 Resp 20 04/11/18 16:03 BP 124/77 04/11/18 16:03 Pulse Ox 100 04/11/18 16:03 - Labs Labs: Laboratory Results - last 24 hr 04/11/18 16:01 POC Glucose (mg/dL) 154 H Assessment & Plan (1) Seizure disorder Assessment and Plan: The patient was non-compliant with Topamax or Keppra, will try Vimpat and stop Topamax. Thank you. Status: Acute
[2018-04-11] MEDS ORDERED: Lacosamide 100 MG Tab PO SCH (17:15)
--- NOTE | 2018-04-11 21:57 | RAD ---
Date of service: 04/11/2018 HISTORY: Seizure COMPARISON: Comparison is made with 04/06/2018 TECHNIQUE: Chest PA and lateral FINDINGS: LUNGS: No evidence of new infiltrate or consolidation in the lungs. Reticular opacities are again seen in the lower PLEURA: No significant pleural effusion identified. No pneumothorax apparent. CARDIOVASCULAR: Normal. OSSEOUS STRUCTURES: No significant abnormalities. VISUALIZED UPPER ABDOMEN: Normal. OTHER FINDINGS: None. IMPRESSION: No significant interval change noted since the previous exam.
[2018-04-11] MEDS ORDERED: Insulin Detemir 100 Units/ml Inj SC SCH (22:00)
[2018-04-12 07:08] LABS: BASO % 0.4 % (0.0-2.0); EOS # 0.1 K/uL (0.0-0.7); EOS % 0.6 % (0.0-4.0); LYMPH # 3.2 K/uL (1.0-4.3); MEAN CELL VOLUME 80.8 fl (81.0-99.0); MEAN CORPUSCULAR HEMOGLOBIN 29.5 pg (27.0-31.0); MEAN CORPUSCULAR HGB CONC 36.5 g/dL (33.0-37.0); MONO # 0.9 K/uL (0.0-0.8); MONO % 8.1 % (0.0-10.0); NEUT # 7.5 K/uL (1.8-7.0); NEUT % 63.9 % (50.0-75.0); RBC 3.71 Mil/uL (3.80-5.20); RED CELL DISTRIBUTION WIDTH 14.8 % (11.5-14.5); WHITE BLOOD COUNT 11.8 K/uL (4.8-10.8)
[2018-04-12 07:46] LABS: ALB/GLOB RATIO 1.2 (1.0-2.1); ALBUMIN 4.3 g/dL (3.5-5.0); ALT/SGPT 33 U/L (9-52); AST/SGOT 46 U/L (14-36); BLOOD UREA NITROGEN 11 mg/dl (7-17); CALCIUM 9.5 mg/dL (8.4-10.2); GFR NON-AFRICAN AMERICAN > 60
[2018-04-12] MEDS ORDERED: Pantoprazole 40 mg EC Tab PO SCH (09:00)
[2018-04-12] MEDS: Lacosamide 50 MG Tab PO SCH ×2 (09:24→16:34)
--- NOTE | 2018-04-12 13:09 | CP.PCM.DIS ---
Provider - Provider Date of Admission: 04/11/18 09:47 Attending physician: Lizzie Juárez MD Primary care physician: Lizzie Juárez MD Time Spent in preparation of Discharge (in minutes): 30 Diagnosis - Discharge Diagnosis (1) Seizure disorder Status: Chronic Hospital Course - Lab Results Lab Results: Most Recent Lab Values WBC 11.8 K/uL (4.8-10.8) H 04/12/18 06:00 RBC 3.71 Mil/uL (3.80-5.20) L 04/12/18 06:00 Hgb 11.0 g/dL (12.0-16.0) L 04/12/18 06:00 Hct 30.0 % (34.0-47.0) L 04/12/18 06:00 MCV 80.8 fl (81.0-99.0) L 04/12/18 06:00 MCH 29.5 pg (27.0-31.0) 04/12/18 06:00 MCHC 36.5 g/dL (33.0-37.0) 04/12/18 06:00 RDW 14.8 % (11.5-14.5) H 04/12/18 06:00 Plt Count 264 K/uL (130-400) 04/12/18 06:00 MPV 7.0 fl (7.2-11.7) L 04/12/18 06:00 Neut % (Auto) 63.9 % (50.0-75.0) 04/12/18 06:00 Lymph % (Auto) 27.0 % (20.0-40.0) 04/12/18 06:00 Hodgeman % (Auto) 8.1 % (0.0-10.0) 04/12/18 06:00 Eos % (Auto) 0.6 % (0.0-4.0) 04/12/18 06:00 Baso % (Auto) 0.4 % (0.0-2.0) 04/12/18 06:00 Neut # (Auto) 7.5 K/uL (1.8-7.0) H 04/12/18 06:00 Lymph # (Auto) 3.2 K/uL (1.0-4.3) 04/12/18 06:00 Hodgeman # (Auto) 0.9 K/uL (0.0-0.8) H 04/12/18 06:00 Eos # (Auto) 0.1 K/uL (0.0-0.7) 04/12/18 06:00 Baso # (Auto) 0.0 K/uL (0.0-0.2) 04/12/18 06:00 Sodium 138 mmol/l (132-148) 04/12/18 06:00 Potassium 4.1 MMOL/L (3.6-5.0) 04/12/18 06:00 Chloride 104 mmol/L (98-107) 04/12/18 06:00 Carbon Dioxide 26 mmol/L (22-30) 04/12/18 06:00 Anion Gap 12 (10-20) 04/12/18 06:00 BUN 11 mg/dl (7-17) 04/12/18 06:00 Creatinine 0.6 mg/dl (0.7-1.2) L 04/12/18 06:00 Est GFR ( Amer) > 60 04/12/18 06:00 Est GFR (Non-Af Amer) > 60 04/12/18 06:00 POC Glucose (mg/dL) 238 mg/dL (65-110) H 04/12/18 11:15 Random Glucose 162 mg/dL (65-105) H 04/12/18 06:00 Calcium 9.5 mg/dL (8.4-10.2) 04/12/18 06:00 Total Bilirubin 0.4 mg/dl (0.2-1.3) 04/12/18 06:00 AST 46 U/L (14-36) H D 04/12/18 06:00 ALT 33 U/L (9-52) 04/12/18 06:00 Alkaline Phosphatase 69 U/L (38-126) 04/12/18 06:00 Total Protein 7.8 G/DL (6.3-8.2) 04/12/18 06:00 Albumin 4.3 g/dL (3.5-5.0) 04/12/18 06:00 Globulin 3.5 gm/dL (2.2-3.9) 04/12/18 06:00 Albumin/Globulin Ratio 1.2 (1.0-2.1) 04/12/18 06:00 - Hospital Course Hospital Course: 62 y/o female with PMH of HTN, Seizure disorder (not compliant with Keppra or Topamax), Migraine, DMII, depression and schizophrenia had been transfered to the ED after having seizure activity in the psych unit yesterday. In the ER patient had another episode of a seizure. She was seen and evaluated by neurology and has been on telemetry without any seizure like activity on new medication. Patient was started with Kepra initially and refused to take it. She was then put on tomepax and continued to refuse that as well. Seizures - Patient seen by neurology - Consult, Neuro, Dr. Paz - Had not been compliant with seizure medications in the past and was refusing t o take them. - Topamax has been D/C. - Patient has been started on Vimpat (Lacosamide) 100mg BID ( Agrees to take medication) - Has remained without any seizure like activity in telemetry Hypertension - Chronic, Controlled - C/W home meds - Echo 10/15: >60 EF Depression/schizophrenia/Mood disorders - Continue with medications as per psych - Patient is medically optimized to go back down to psych - C/w PRN Klonopin, Amptriptyline 50mg HS daily, Ativan 0.5 Q6 PRN, Zoloft 50mg daily Discharge Exam - Head Exam Head Exam: ATRAUMATIC, NORMAL INSPECTION, NORMOCEPHALIC - Eye Exam Eye Exam: EOMI, Normal appearance - Respiratory Exam Respiratory Exam: Clear to PA & Lateral, NORMAL BREATHING PATTERN. absent: Rales, Rhonchi, Wheezes - Cardiovascular Exam Cardiovascular Exam: REGULAR RHYTHM, +S1, +S2 - GI/Abdominal Exam GI & Abdominal Exam: Normal Bowel Sounds, Soft. absent: Tenderness - Neurological Exam Neurological exam: Alert, CN II-XII Intact Discharge Plan - Follow Up Plan Condition: FAIR Disposition: DISCHARGE TO PSYCH HOSPITAL Additional Instructions: Discharge medically stable to go to psych. Topemax has been D/C and patient has been started on Vimpat 100mg BID as per psych Referrals: Lizzie Juárez MD [Primary Care Provider] -
--- NOTE | 2018-04-12 14:22 | CP.PCM.CON ---
History of Present Illness - History of Present Illness History of Present Illness: 62 yo female presents w/ worsening depression, poor sleep, poor appetite, reports not eating for 5 days, poor memory, feelings of hopelessness, feelings frustrated that her son does not visit her more and care for her more. No current AH/VH/paranoia/delusions. NO SI/HI. A + O x self and hospital, not oriented to date. pt while on unit had a seizure. an GRAIN WEIGHER called and pt transfered to medicine on evaluation pt presenting with disorganized thought process, lowering her voice as she is worried others would be spying on her , reported anxious mood and affect, denied suicidal or homicidal ideation denied perceptual disturbances , denied command hallucinations, appears internally preoccupied Past Patient History - Infectious Disease Hx of Infectious Diseases: None - Tetanus Immunizations Tetanus Immunization: Unknown - Past Medical History & Family History Past Medical History?: Yes - Past Social History Smoking Status: Never Smoked - CARDIAC Hx Congestive Heart Failure: Yes Hx Hypercholesterolemia: Yes Hx Hypertension: Yes - PULMONARY Hx Tuberculosis: No - NEUROLOGICAL Hx Dementia: Yes Hx Migraine: Yes - HEENT Hx 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) - RENAL Hx Chronic Kidney Disease: No - ENDOCRINE/METABOLIC Hx Endocrine Disorders: Yes Hx Diabetes Mellitus Type 2: Yes - HEMATOLOGICAL/ONCOLOGICAL Hx Human Immunodeficiency Virus (HIV): No - INTEGUMENTARY Hx Dermatological Problems: No - MUSCULOSKELETAL/RHEUMATOLOGICAL Hx Osteoporosis: Yes - GASTROINTESTINAL Hx Gastrointestinal Disorders: No Hx Gastroesophageal Reflux: Yes - GENITOURINARY/GYNECOLOGICAL Hx Sexually Transmitted Disorders: No - PSYCHIATRIC Hx Anxiety: Yes (as per patient) Hx Depression: Yes Hx Schizophrenia: Yes (as per daycare center facesheet) Hx Substance Use: No - SURGICAL HISTORY Hx Surgeries: No - ANESTHESIA Hx Anesthesia: No Meds Home Medications: Home Medication List Medication Instructions Recorded Confirmed Type Amitriptyline [Elavil] 50 mg PO HS tab 04/12/18 Rx Lacosamide [Vimpat] 100 mg PO BID tab 04/12/18 Rx Allergies/Adverse Reactions: Allergies Allergy/AdvReac Type Severity Reaction Status Date / Time No Known Allergies Allergy Verified 01/22/18 00:19 - Medications Medications: Current Medications Acetaminophen (Tylenol 325mg Tab) 650 mg PO Q4 PRN PRN Reason: Headache Last Admin: 04/11/18 21:04 Dose: 650 mg Alendronate Sodium (Fosamax) 70 mg PO QWK [facility] Amitriptyline HCl (Elavil) 50 mg PO HS [facility] Last Admin: 04/11/18 21:05 Dose: 50 mg Aspirin (Ecotrin) 81 mg PO DAILY [facility] Last Admin: 04/12/18 08:49 Dose: 81 mg Atorvastatin Calcium (Lipitor) 10 mg PO HS [facility] Last Admin: 04/11/18 21:05 Dose: 10 mg Clonazepam (Klonopin) 0.5 mg PO Q12 PRN PRN Reason: Agitation Last Admin: 04/12/18 10:30 Dose: 0.5 mg Ergocalciferol (Drisdol 50,000 Intl Units Cap) 1 cap PO QWK [facility] Insulin Detemir (Levemir) 0 units SC HS [facility]; Protocol Last Admin: 04/11/18 22:15 Dose: Not Given Lacosamide (Vimpat) 100 mg PO BID [facility] Last Admin: 04/12/18 09:24 Dose: 100 mg Lorazepam (Ativan) 0.5 mg PO Q6 PRN PRN Reason: Agitation Magnesium Hydroxide (Milk Of Magnesia) 30 ml PO HS PRN PRN Reason: Constipation Last Admin: 04/11/18 20:56 Dose: 30 ml Pantoprazole Sodium (Protonix Ec Tab) 40 mg PO DAILY [facility] Last Admin: 04/12/18 08:49 Dose: 40 mg Sertraline HCl (Zoloft) 50 mg PO DAILY [facility] Last Admin: 04/12/18 08:49 Dose: 50 mg Results - Vital Signs Recent Vital Signs: Last Vital Signs Temp 98.4 F 04/12/18 08:27 Pulse 92 H 04/12/18 09:00 Resp 18 04/12/18 08:27 BP 133/81 04/12/18 08:27 Pulse Ox 98 04/12/18 08:27 - Labs Result Diagrams: 04/12/18 06:00 04/12/18 06:00 Labs: Laboratory Results - last 24 hr 04/11/18 04/11/18 04/12/18 16:01 21:27 05:39 WBC RBC Hgb Hct MCV MCH MCHC RDW Plt Count MPV Neut % (Auto) Lymph % (Auto) Sampson % (Auto) Eos % (Auto) Baso % (Auto) Neut # (Auto) Lymph # (Auto) Sampson # (Auto) Eos # (Auto) Baso # (Auto) Sodium Potassium Chloride Carbon Dioxide Anion Gap BUN Creatinine Est GFR ( Amer) Est GFR (Non-Af Amer) POC Glucose (mg/dL) 154 H 199 H 149 H Random Glucose Calcium Total Bilirubin AST ALT Alkaline Phosphatase Total Protein Albumin Globulin Albumin/Globulin Ratio 04/12/18 04/12/18 04/12/18 06:00 06:00 11:15 WBC 11.8 H RBC 3.71 L Hgb 11.0 L Hct 30.0 L MCV 80.8 L MCH 29.5 MCHC 36.5 RDW 14.8 H Plt Count 264 MPV 7.0 L Neut % (Auto) 63.9 Lymph % (Auto) 27.0 Sampson % (Auto) 8.1 Eos % (Auto) 0.6 Baso % (Auto) 0.4 Neut # (Auto) 7.5 H Lymph # (Auto) 3.2 Sampson # (Auto) 0.9 H Eos # (Auto) 0.1 Baso # (Auto) 0.0 Sodium 138 Potassium 4.1 Chloride 104 Carbon Dioxide 26 Anion Gap 12 BUN 11 Creatinine 0.6 L Est GFR ( Amer) > 60 Est GFR (Non-Af Amer) > 60 POC Glucose (mg/dL) 238 H Random Glucose 162 H Calcium 9.5 Total Bilirubin 0.4 AST 46 H D ALT 33 Alkaline Phosphatase 69 Total Protein 7.8 Albumin 4.3 Globulin 3.5 Albumin/Globulin Ratio 1.2 Assessment & Plan - Assessment and Plan (Free Text) Assessment: schizoaffective disorder Plan: pt could be transferred to psychiatry upon medical clearance, for further stabilization and disposition planning
[2018-04-12 14:36] VITALS: RESP 20
[2018-04-12 16:40] VITALS: BP 126/77; PULSE 108; TEMP 98.9; O2SAT 98
== END 2018-04-12 18:03 | DRG 101 ==
LOC: SUPCPDRO 09:25 → H.ER 09:25 → H.ERHOLD 09:47 → H.TEL 14:36
PROVIDERS: ADMIT Hospitalist; ATTEND Hospitalist
DX: G40.409 Other generalized epilepsy and epileptic syndromes, not intractable, without status epilepticus (principal); F25.9 Schizoaffective disorder, unspecified; F32.9 Major depressive disorder, single episode, unspecified; F03.90 Unspecified dementia, unspecified severity, without behavioral disturbance, psychotic disturbance, mood disturbance, and anxiety; G43.909 Migraine, unspecified, not intractable, without status migrainosus; I25.10 Atherosclerotic heart disease of native coronary artery without angina pectoris; I10 Essential (primary) hypertension; M81.0 Age-related osteoporosis without current pathological fracture; E11.9 Type 2 diabetes mellitus without complications; E78.00 Pure hypercholesterolemia, unspecified; K21.9 Gastro-esophageal reflux disease without esophagitis; F41.9 Anxiety disorder, unspecified; H54.61 Unqualified visual loss, right eye, normal vision left eye; Z91.14 Patient's other noncompliance with medication regimen; Z91.19 Patient's noncompliance with other medical treatment and regimen; Z79.82 Long term (current) use of aspirin

== ENCOUNTER 2018-04-12 17:23 | Inpatient (IN) | payer MEDICARE, MEDICAID ==
[2018-04-11 09:38] VITALS: PULSE 73
[2018-04-12] MEDS ORDERED: Alum-Mag Hydrox-Simethicone Susp (30 mL) PO PRN (18:28)
[2018-04-12] MEDS ORDERED: Bismuth Subsalicylate 262 mg/15 ml Sus (240 ml) PO PRN (18:28)
[2018-04-12] MEDS ORDERED: Magnesium Hydroxide Susp 30 ml UD PO PRN ×2 (18:28→22:02)
--- NOTE | 2018-04-12 18:30 | PCM.BM ---
<Ofelia Boswell E - Last Filed: 04/12/18 18:28> Treatment Plan Problems - Problems identified on initial assessmt Depression Date Initiated: 04/12/18 Time Initiated: 18:29 Assessment reference: HP, NA Status: Active Priority: 1 Problem 2 Date Initiated: 04/12/18 Time Initiated: 18:30 Assessment reference: HP, NA Status: Active Priority: 2 Treatment assets and liabiliti Patient Assests: cooperative, resourceful, ADL independent, negotiates basic needs Patient Liabilities: live alone, dietary restrictions, medical problems - Milieu Protocol Maintain good personal hygiene: daily Encourage regular showers, daily Remind patient to perform daily oral care, daily Assist patient to perform ADL's Maintain personal safety: every shift Educate patient to report safety concerns to staff, every shift Monitor environment for contraband/sharps Medication safety: Monitor for expected outcome, potential side effects: every shift, Assess barriers to learning: every shift, Assess readiness for medication education: every shift <Saray Gonzalez - Last Filed: 04/13/18 11:14> - Diagnosis (1) Major depressive disorder with psychotic features Status: Acute Interventions: Medication management, Individual and group therapy, Psychoeducation 04/13/18 11:14 (2) Generalized anxiety disorder Status: Acute Interventions: Medication management, Individual and group therapy, Psychoeducation 04/13/18 11:15 <Tamela Fernando M - Last Filed: 04/15/18 13:14> Family Contact Family involvement: Family/SO is involved Family contact: Patient agrees to contact, Family has been contacted by patient, Telephone contact initiated by staff Family contact name: Osman Gabriel - son Family contacted how many times per week?: 2 Family contact comment: [phone] - Outside Agency Accredited Home Health Care involvment: Information-sharing Agency contact number: [phone] Adult Care Care involvment: Information-sharing Agency contact number: [phone] - Goals for Treatment Patient goals for treatment: Pt to be encouraged to attend activity and clinical groups 3-5x per week to decrease symptoms of paranoia, delusions and employ reality testing. Pt to be encouraged to participate in group milieu to develop coping skills to reduce psychiatric hospitalizations and further decompensation. Coordinate discharge resources needs by providing referral for psychiatric treatment follow up in the community. Discharge/Continuing Care - Education Needs Education Needs: Family Medication, Family Diagnosis/Disease Process, Family Coping Skills, Family Placement options, Family Community resources, Family Activities of Daily Living, Family Health Practices/Safety, Family Aftercare Safety Plan, Patient Medication, Patient Diagnosis/Disease Process, Patient Coping Skills, Patient Placement options, Patient Community resources, Patient Activities of Daily Living, Patient Health Practices/Safety, Patient Aftercare Safety Plan - Discharge Discharge Criteria: Tolerates medication w/o severe side effects, Free of paranoid thoughts, Free of agitation, Normal sleep pattern, Ability to care for self, Reduction of target symptoms Discharge to:: Home - Additional Comments 04/15/18 13:03 Pt seen and discussed in team meeting. Reason for admission reviewed and discussed. Pt presents with paranoia, disorganized thought process, flight of ideas and loose of association. Pt talking about a man at night who wants to "violate" her can't. Pt also talking about the mattress in her bed being filled with liquid and blood. Additionally, pt reported that there is a new tablet that "will cure everything.". Pt reported she saw the tablet in her dreams. Pt also reported poor sleep. Reality testing employed, but not accepted by pt. Pt's medications reviewed and and discussed. Attending MD offered IM Risperdal and pt declined. Tx plan reviewed and discussed. Pt verbalized agreement. Pt to continue to attend group milieu, medication regimen, daily assessment by MD, RN monitoring, and SW to continue to follow case. - Treatment Team Participation Discussed with Family/SO: No Was Patient/Family/SO present at Treatment Team Meeting: Yes
[2018-04-12] MEDS ORDERED: Ergocalciferol 50,000 Intl Units Cap PO SCH ×2 (22:15)
[2018-04-12] MEDS ORDERED: ALENDRONATE 70 MG TAB PO SCH (22:15)
[2018-04-13 05:47] LABS: BASO # 0.1 K/uL (0.0-0.2); BASO % 0.7 % (0.0-2.0); EOS # 0.1 K/uL (0.0-0.7); HEMOGLOBIN 11.4 g/dL (12.0-16.0); LYMPH # 3.3 K/uL (1.0-4.3); LYMPH % 31.2 % (20.0-40.0); MEAN CELL VOLUME 81.4 fl (81.0-99.0); MEAN CORPUSCULAR HGB CONC 35.7 g/dL (33.0-37.0); MEAN PLATELET VOLUME 6.9 fl (7.2-11.7); MONO # 0.9 K/uL (0.0-0.8); MONO % 8.1 % (0.0-10.0); NEUT # 6.2 K/uL (1.8-7.0); RBC 3.92 Mil/uL (3.80-5.20); RED CELL DISTRIBUTION WIDTH 14.6 % (11.5-14.5); WHITE BLOOD COUNT 10.5 K/uL (4.8-10.8)
[2018-04-13 06:00] LABS: ALB/GLOB RATIO 1.2 (1.0-2.1); ALBUMIN 4.2 g/dL (3.5-5.0); ALT/SGPT 22 U/L (9-52); AST/SGOT 26 U/L (14-36); BLOOD UREA NITROGEN 13 mg/dl (7-17); CALCIUM 9.6 mg/dL (8.4-10.2); GFR NON-AFRICAN AMERICAN > 60; HDL CHOLESTEROL 91 MG/DL (30-70)
[2018-04-13 06:09] LABS: LDL CHOLESTEROL 116 mg/dL (0-129)
[2018-04-13 06:16] LABS: T4 7.69 ug/dl (5.5-11.0)
[2018-04-13 07:35] LABS: FERRITIN 60.3 ng/Ml (11.1-264.0)
[2018-04-13] MEDS ORDERED: Lacosamide 50 MG Tab PO SCH (09:00)
[2018-04-13] MEDS ORDERED: Risperidone M tab 0.5MG PO SCH (09:00)
[2018-04-13] MEDS ORDERED: DiphenhydrAMINE 50 mg/ml Inj IM STA (09:02)
[2018-04-13] MEDS ORDERED: DiphenhydrAMINE 50 mg/ml Inj IM PRN (09:30)
--- NOTE | 2018-04-13 11:15 | PCM.PSYCH ---
Initial Psychiatric Evaluation - Initial Psychiatric Evaluation Type of Admission: Voluntary Legal Status: Capacity Chief Complaint (in patient's own words): Acute paranoia/disorganization Patient's Reaction to Hospitalization: HPI: 62 yo female initially presented and admitted to [facility] with worsening depression, poor sleep, poor appetite, poor appetite, poor memory, feelings of hopelessness, feelings frustrated that her son does not visit her more and care for her more. Patient was transferred to medicine after she had a seizure and now transferred back to 3 with continued depression, but now patient is acutely psychotic, paranoid and disorganized. PPHx: Hopitalized on [facility] in 08/2017. Remote history of hospitalizations and 2 suicide attempts by ingesting Bleach, she does not give a specific date. She is currently prescribed Amitriptyline 50 mg PO Daily, Klonopin 2 mg PO Q12 by her PMD Dr. 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 Current Medications: Active Medications Generic Name Dose Route Start Last Admin Trade Name Freq PRN Reason Stop Dose Admin Acetaminophen 650 mg 04/12/18 18:28 Tylenol 325mg Tab PO Q4 PRN Pain, moderate (4-7) Acetaminophen/Butalbital/Caffeine 1 tab 04/12/18 22:05 Fioricet PO PRN PRN Migraine headache Al Hydrox/Mg Hydrox/Simethicone 30 ml 04/12/18 18:28 Maalox Plus 30 Ml PO Q4 PRN Dyspepsia Alendronate Sodium 70 mg 04/12/18 22:15 Fosamax PO QWK [facility] Amitriptyline HCl 50 mg 04/12/18 22:00 04/12/18 21:00 Elavil PO Not Given HS [facility] Aspirin 81 mg 04/13/18 09:00 04/13/18 09:59 Ecotrin PO 81 mg DAILY [facility] Administration Atorvastatin Calcium 10 mg 04/13/18 22:00 Lipitor PO HS [facility] Bismuth Subsalicylate 524 mg 04/12/18 18:28 Pepto-Bismol PO Q4 PRN Diarrhea Clonazepam 0.5 mg 04/12/18 18:17 04/13/18 09:58 Klonopin PO 0.5 mg Q12 PRN Administration Agitation Diphenhydramine HCl 50 mg 04/13/18 09:30 Benadryl IM Q8 PRN Agitation Ergocalciferol 1 cap 04/12/18 22:15 Drisdol 50,000 Intl Units Cap PO QWK [facility] Ergocalciferol 1 cap 04/12/18 22:15 Drisdol 50,000 Intl Units Cap PO QWK [facility] Haloperidol Lactate 2 mg 04/13/18 09:29 Haldol IM Q8 PRN Agitation Lacosamide 100 mg 04/13/18 09:00 Vimpat PO BID [facility] Lorazepam 0.5 mg 04/12/18 18:28 Ativan PO 04/26/18 18:29 HS PRN Insomnia Lorazepam 1 mg 04/13/18 09:29 Ativan IM Q8 PRN Agitation Magnesium Hydroxide 30 ml 04/12/18 18:28 Milk Of Magnesia PO HS PRN Constipation Magnesium Hydroxide 30 ml 04/12/18 22:02 Milk Of Magnesia PO PRN PRN Dyspepsia Multivitamins/Minerals 1 tab 04/13/18 09:00 Therapeutic-M Tab PO DAILY [facility] Pantoprazole Sodium 40 mg 04/13/18 09:00 Protonix Ec Tab PO DAILY [facility] Risperidone 1 mg 04/13/18 21:00 Risperdal M-Tab PO Q12 [facility] Sertraline HCl 50 mg 04/13/18 09:00 Zoloft PO DAILY [facility] Past Psychiatric History - Past Psychiatric History Previous Treatment History: Inpatient Pertinent Medical Hx (Current Medical&Sleep Prob, Allergies): Allergies Allergy/AdvReac Type Severity Reaction Status Date / Time No Known Allergies Allergy Verified 01/22/18 00:19 Atorvastatin [Lipitor] 10 mg PO HS 09/04/17 Ergocalciferol (Vitamin D2) [Vitamin D2] 50,000 unit PO QWK 09/04/17 Aspirin [Adult Low Dose Aspirin EC] 81 mg PO DAILY 09/05/17 Acetaminophen [Tylenol 325mg tab] 650 mg PO Q4 PRN tab 10/23/17 PARoxetine [Paxil] 40 mg PO HS tab 10/23/17 Pantoprazole [Protonix EC Tab] 40 mg PO DAILY ect 10/23/17 Acetaminophen [Tylenol] 650 mg PO PRN PRN 04/11/18 Acetaminophen/Butalbital/Caf [Fioricet] 1 tab PO PRN PRN 04/11/18 Alendronate [Fosamax] 70 mg PO QWK 04/11/18 Aluminum Hydroxide/Magnesium [Maalox Plus 30 ml] 30 ml PO PRN PRN 04/11/18 Amitriptyline [Elavil] 50 mg PO HS 04/11/18 Amitriptyline [Elavil] 50 mg PO HS 04/11/18 Ergocalciferol [Drisdol 50,000 Intl Units Cap] 1 cap PO QWK 04/11/18 LORazepam [Ativan] 0.5 mg PO PRN PRN 04/11/18 Magnesium Hydroxide [Milk Of Magnesia] 30 ml PO PRN PRN 04/11/18 Multimineral/Multivitamin [Therapeutic-M Tab] 1 tab PO DAILY 04/11/18 Sertraline [Zoloft] 50 mg PO DAILY 04/11/18 Amitriptyline [Elavil] 50 mg PO HS tab 04/12/18 Lacosamide [Vimpat] 100 mg PO BID tab 04/12/18 Review of Systems - Neurological Neurological: As Per HPI, Convulsions, Memory Loss - Psychiatric Psychiatric: As Per HPI, Abnormal Sleep Pattern, Anhedonia, Anxiety, Behavioral Changes, Change in Appetite, Confusion, Depression, Difficulty Concentrating, Hopelessness, Irritability, Memory Loss, Paranoia Mental Status Examination - Personal Presentation Personal Presentation: Looks stated age - Affect Affect: Other (Labile) - Motor Activity Motor Activity: Psychomotor Agitation - Reliability in Providing Information Reliability in Providing Information: Poor, due to alteration in thoughts - Speech Speech: Disorganized, Irrelevant - Mood Mood: Anxious - Formal Thought Process Formal Thought Process: Paranoia - Obsessions/Compulsions Obsessions: No Compulsions: No - Cognitive Functions Orientation: Person Sensorium: Alert Attention/Concentration: Easily distracted Estimate of Intelligence: Average Judgement: Imparied, as evidence by: Poor judgement, Imparied, as evidence by: Lack of insight into illness Memory: Recent impaired, as evidence by: Inability to recall events of the day, Recent imparied as evidence by:Inability to complete 3/3 object recall - Risk Risk: Diminished functioning - Strength & Assets Inventory Strength & Assets Inventory: Family support - Limitations Limitations: Living alone, Decreased memory, recent DSM 5 DX - DSM 5 DSM 5 Diagnosis: Major Depressive Disorder w/ Psychotic Features; Generalized Anxiety Disorder - Recommended/Plan of Treatment Treatment Recommendations and Plan of Treatment: Major Depressive Disorder w/ Psychotic Features; Generalized Anxiety Disorder -Admit to psychiatry unit -Individual and group therapy -Hold Elavil as it can lower seizure threshold -Start Risperdal -Continue Zoloft -Medicine consult -Continue Vimpat 100 mg PO BID as per neurology recommendations -Disposition planning Projected ELOS: 5-10 days Discharge Plan and Discharge Criteria: Discharge when patient is psychiatrically stable - Smoking Cessation Smoking Cessation Initiated: No Reason for not providing: Not indicated
[2018-04-13 12:37] LABS: FOLATE > 20.0 ng/mL
[2018-04-13] MEDS: Lacosamide 100 MG Tab PO SCH ×2 (13:14→20:10)
[2018-04-13] MEDS: Pantoprazole 40 mg EC Tab PO SCH (13:15)
[2018-04-13] MEDS: Multivitamin With Minerals Tab PO SCH (13:15)
--- NOTE | 2018-04-13 15:30 | CP.PCM.CON ---
History of Present Illness - History of Present Illness History of Present Illness: 62 y/o female with PMH of HTN, Seizure disorder (not compliant with Keppra or Topamax), Migraine, DMII, depression and schizophrenia was admitted to telemetry for breakthrough seizure while in [facility] . CT head showed no acute patho logy. Neurology was consulted and started patient on Vimpat.Patient returned back to her baseline with paranoia. Medically cleared for discharge to psych for management. PMH: HTN, Seizure disorder, Migraine, DMII, depression and schizophrenia Surgery : Denies Allergies: NKDA Medications: See med rec Family history: + for stroke, but denies any seizures or cancers Social History : ; Lives alone with Health Aide daily for 5hrs; attends Adult Day Care daily; Never Smoked; no Alcohol use; No illegal drug use Code status: full code ROS ; 10 point review of system negative Past Patient History - Infectious Disease Hx of Infectious Diseases: None - Tetanus Immunizations Tetanus Immunization: Unknown - Past Medical History & Family History Past Medical History?: Yes - Past Social History Smoking Status: Never Smoked - CARDIAC Hx Congestive Heart Failure: Yes Hx Hypercholesterolemia: Yes Hx Hypertension: Yes - PULMONARY Hx Tuberculosis: No - NEUROLOGICAL Hx Dementia: Yes Hx Migraine: Yes - HEENT Hx 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) - RENAL Hx Chronic Kidney Disease: No - ENDOCRINE/METABOLIC Hx Endocrine Disorders: Yes Hx Diabetes Mellitus Type 2: Yes - HEMATOLOGICAL/ONCOLOGICAL Hx Human Immunodeficiency Virus (HIV): No - INTEGUMENTARY Hx Dermatological Problems: No - MUSCULOSKELETAL/RHEUMATOLOGICAL Hx Falls: No Hx Osteoporosis: Yes - GASTROINTESTINAL Hx Gastrointestinal Disorders: No Hx Gastroesophageal Reflux: Yes - GENITOURINARY/GYNECOLOGICAL Hx Sexually Transmitted Disorders: No - PSYCHIATRIC Hx Anxiety: Yes Hx Depression: Yes Hx Schizophrenia: Yes Hx Substance Use: No - SURGICAL HISTORY Hx Surgeries: No - ANESTHESIA Hx Anesthesia: No Meds Allergies/Adverse Reactions: Allergies Allergy/AdvReac Type Severity Reaction Status Date / Time No Known Allergies Allergy Verified 01/22/18 00:19 - Medications Medications: Current Medications Acetaminophen (Tylenol 325mg Tab) 650 mg PO Q4 PRN PRN Reason: Pain, moderate (4-7) Acetaminophen/Butalbital/Caffeine (Fioricet) 1 tab PO PRN PRN PRN Reason: Migraine headache Al Hydrox/Mg Hydrox/Simethicone (Maalox Plus 30 Ml) 30 ml PO Q4 PRN PRN Reason: Dyspepsia Alendronate Sodium (Fosamax) 70 mg PO QWK [facility] Aspirin (Ecotrin) 81 mg PO DAILY [facility] Last Admin: 04/13/18 09:59 Dose: 81 mg Atorvastatin Calcium (Lipitor) 10 mg PO HS [facility] Bismuth Subsalicylate (Pepto-Bismol) 524 mg PO Q4 PRN PRN Reason: Diarrhea Clonazepam (Klonopin) 0.5 mg PO Q12 PRN PRN Reason: Agitation Last Admin: 04/13/18 09:58 Dose: 0.5 mg Diphenhydramine HCl (Benadryl) 50 mg IM Q8 PRN PRN Reason: Agitation Ergocalciferol (Drisdol 50,000 Intl Units Cap) 1 cap PO QWK [facility] Ergocalciferol (Drisdol 50,000 Intl Units Cap) 1 cap PO QWK [facility] Haloperidol Lactate (Haldol) 2 mg IM Q8 PRN PRN Reason: Agitation Lacosamide (Vimpat) 100 mg PO BID [facility] Last Admin: 04/13/18 13:14 Dose: 100 mg Lorazepam (Ativan) 0.5 mg PO HS PRN PRN Reason: Insomnia Stop: 04/26/18 18:29 Lorazepam (Ativan) 1 mg IM Q8 PRN PRN Reason: Agitation Magnesium Hydroxide (Milk Of Magnesia) 30 ml PO HS PRN PRN Reason: Constipation Magnesium Hydroxide (Milk Of Magnesia) 30 ml PO PRN PRN PRN Reason: Dyspepsia Multivitamins/Minerals (Therapeutic-M Tab) 1 tab PO DAILY [facility] Last Admin: 04/13/18 13:15 Dose: 1 tab Pantoprazole Sodium (Protonix Ec Tab) 40 mg PO DAILY [facility] Last Admin: 04/13/18 13:15 Dose: 40 mg Risperidone (Risperdal M-Tab) 1 mg PO Q12 [facility] Sertraline HCl (Zoloft) 50 mg PO DAILY [facility] Last Admin: 04/13/18 13:16 Dose: 50 mg Results - Vital Signs Recent Vital Signs: Last Vital Signs Temp 98.2 F 04/13/18 05:50 Pulse 96 H 04/13/18 05:50 Resp 19 04/13/18 05:50 BP 156/88 H 04/13/18 05:50 Pulse Ox - Labs Result Diagrams: 04/13/18 05:15 04/13/18 05:15 Labs: Laboratory Results - last 24 hr 04/13/18 04/13/18 04/13/18 05:15 05:15 05:15 WBC RBC Hgb Hct MCV MCH MCHC RDW Plt Count MPV Neut % (Auto) Lymph % (Auto) [place] % (Auto) Eos % (Auto) Baso % (Auto) Neut # (Auto) Lymph # (Auto) [place] # (Auto) Eos # (Auto) Baso # (Auto) Sodium 139 Potassium 4.1 Chloride 106 Carbon Dioxide 26 Anion Gap 11 BUN 13 Creatinine 0.6 L Est GFR ( Amer) > 60 Est GFR (Non-Af Amer) > 60 POC Glucose (mg/dL) Random Glucose 140 H Hemoglobin A1c 5.9 Calcium 9.6 Ferritin 60.3 Total Bilirubin 0.4 AST 26 ALT 22 Alkaline Phosphatase 71 Total Protein 7.8 Albumin 4.2 Globulin 3.6 Albumin/Globulin Ratio 1.2 Triglycerides 155 H D Cholesterol 250 H LDL Cholesterol Direct 116 HDL Cholesterol 91 H Vitamin B12 532 Folate > 20.0 Free T4 1.20 Thyroxine (T4) 7.69 TSH 3rd Generation 2.56 04/13/18 04/13/18 04/13/18 05:15 05:35 10:58 WBC 10.5 RBC 3.92 Hgb 11.4 L Hct 31.9 L MCV 81.4 MCH 29.0 MCHC 35.7 RDW 14.6 H Plt Count 273 MPV 6.9 L Neut % (Auto) 59.0 Lymph % (Auto) 31.2 [place] % (Auto) 8.1 Eos % (Auto) 1.0 Baso % (Auto) 0.7 Neut # (Auto) 6.2 Lymph # (Auto) 3.3 [place] # (Auto) 0.9 H Eos # (Auto) 0.1 Baso # (Auto) 0.1 Sodium Potassium Chloride Carbon Dioxide Anion Gap BUN Creatinine Est GFR ( Amer) Est GFR (Non-Af Amer) POC Glucose (mg/dL) 126 H 181 H Random Glucose Hemoglobin A1c Calcium Ferritin Total Bilirubin AST ALT Alkaline Phosphatase Total Protein Albumin Globulin Albumin/Globulin Ratio Triglycerides Cholesterol LDL Cholesterol Direct HDL Cholesterol Vitamin B12 Folate Free T4 Thyroxine (T4) TSH 3rd Generation Assessment & Plan - Assessment and Plan (Free Text) Assessment: 62 y/o female with PMH of HTN, Seizure disorder (not compliant with Keppra or Topamax), Migraine, DMII, depression and schizophrenia was admitted to Telemetry for breakthrough seizure while in psych unit . CT head showed no acute pathol ogy. Neurology was consulted and started patient on Vimpat.Patient returned back to her baseline with paranoia. Medically cleared for discharge to psych for management. 1.Seizure disorder continue Vimpat Seizure precautions 2.Hypertension Chronic, Controlled continue with beto emeds Echo 10/15: >60 EF 3.Depression/schizophrenia/Mood disorders Continue with medications as per psych
[2018-04-13] MEDS: Risperidone M tab 1 MG PO SCH (20:09)
[2018-04-14] MEDS: Apap-Butalbital-Caffeine 325-50-40mg Tab PO PRN ×2 (06:31→21:19)
[2018-04-14] MEDS: Lacosamide 100 MG Tab PO SCH ×2 (08:03→16:19)
[2018-04-14] MEDS: Pantoprazole 40 mg EC Tab PO SCH (08:03)
[2018-04-14] MEDS: Multivitamin With Minerals Tab PO SCH (08:03)
[2018-04-14] MEDS: Risperidone M tab 1 MG PO SCH ×3 (08:03→21:53)
--- NOTE | 2018-04-14 08:32 | PCM.PYCHPN ---
Psychiatric Progress Note - Psychiatric Progress Note Patient seen today, length of contact: Pt evaluated, case discussed w/ team, chart reviewed Patient Chief Complaint: Acute paranoia/disorganization Problems Identified/Issues Discussed: Patient continued to have periods of agitation yesterday and poor sleep. She continues to be non-linear and pressured on conversation. She has poor insight into her recent periods of agitation. She denies acute AH/VH, but is bizarre at times and possibly internally preoccupied. Medication Change: Yes (Increase Risperdal) Medical Record Reviewed: Yes Consults ordered or reviewed: Medicine consult Mental Status Examination - Cognitive Function Orientation: Person, Place, Situation Memory: Impaired Attention: Poor Concentration: Poor Association: Loose Fund of Knowledge: Poor Decription of patient's judgement and insights: Poor I/J - Mood Mood: Anxious - Affect Affect: Other (Labile) - Speech Speech: Pressured - Formal Thought Process Formal Thought Process: Loosening of associations Psychotic Thoughts and Behaviors: Denies acute AH/VH/paranoia, but is bizarre and internally preoccupied at times - Suicidal Ideation Suicidal Ideation: No - Homicidal Ideation Homicidal Ideation: No Goal/Treatment Plan - Goal/Treatment Plan Need for Continued Stay: Remain at risks for inpatient hospitalization, Discharge may exacerbated symptoms Progress Toward Problem(s) and Goals/Treatment Plan: Major Depressive Disorder w/ Psychotic Features; Generalized Anxiety Disorder -Individual and group therapy -Increase Risperdal -Continue Zoloft -Medicine consult -Continue Vimpat 100 mg PO BID as per neurology recommendations -Disposition planning Estimated Date of D/C: 04/17/18
[2018-04-14] MEDS ORDERED: DiphenhydrAMINE 50 mg/ml Inj IM PRN (13:56)
--- NOTE | 2018-04-14 14:25 | CP.PCM.PCO ---
Addendum entered and electronically signed by Fabienne Morelos MD 04/14/18 15:16: Alvarado used [id number] for Kyrgyz translation. Original Note: Assessment/Plan - Assessment and Plan (Free Text) Assessment: S: No acute overnight events. Physician was called to eval pain in tongue by RN. Pt states that for the past two days she has had pain in the right side of her tongue. "I had a dream where a ana stabbed me in the mouth with a pencil." Feeling well otherwise. Also endorsing some R sided chest pain, when she presses on her chest. No associated dyspnea, palpitations, or association with breathing. O: VS reviewed Gen: Pt laying in bed, smiling comfortable. HEENT: atraumatic. small teeth indentation, contusion noted in R side of the tongue along the lateral boarder. C: S1S2, no additional heart sounds. Mild tenderness to palpation of R side of the mediastinum along the sternal angle. L: clear breath sounds b/l A/P: 62 YO Female with PMH of HTN, Seizure disorder (not compliant with Keppra or Topamax), Migraine, DMII, depression and schizophrenia was admitted for [facility] seizure while in psych unit . Neurology was consulted, pt was started patient on Vimpat. Patient returned back to her baseline with paranoia. Tongue pain likely 2/2 to tongue bite from seizure episode. Chest pain likely musculoskeletal in nature. EKG 04/06 normal sinus. -Tylenol prn pain -cont to monitor
[2018-04-14] MEDS ORDERED: DiphenhydrAMINE 50 mg/ml Inj IM ONE (20:00)
[2018-04-14 20:21] LABS: SQUAMOUS EPITHIAL 1 /hpf (0-5); URINE BACTERIA RARE (<OCC); URINE BILIRUBIN NEGATIVE (NEGATIVE); URINE BLOOD NEGATIVE (NEGATIVE); URINE CLARITY SLIGHTY-CLOUDY (Clear); URINE COLOR STRAW (YELLOW); URINE GLUCOSE (UA) 50 mg/dL (Normal); URINE LEUKOCYTE ESTERASE SMALL Leu/uL (Negative); URINE PROTEIN NEGATIVE (NEGATIVE); URINE UROBILINOGEN 0.2-1.0 mg/dL (0.2-1.0)
[2018-04-15] MEDS: Apap-Butalbital-Caffeine 325-50-40mg Tab PO PRN (06:15)
--- NOTE | 2018-04-15 08:28 | PCM.PYCHPN ---
Psychiatric Progress Note - Psychiatric Progress Note Patient seen today, length of contact: Pt evaluated, case discussed w/ team, chart reviewed Patient Chief Complaint: Acute paranoia/disorganization Problems Identified/Issues Discussed: Patient continues to have non-linear, disorganized speech and periods of agitation. She required PRN medication yesterday for acute agitation. She refused her medications last night due to acute paranoia. She was discussing so me unknown man who she thinks is trying to harm her, unclear if this is a delusion vs visual hallucination. Medication Change: Yes (Increase Risperdal) Medical Record Reviewed: Yes Consults ordered or reviewed: Medicine consult Mental Status Examination - Cognitive Function Orientation: Person, Place, Situation Memory: Impaired Attention: Poor Concentration: Poor Association: Loose Fund of Knowledge: Poor Decription of patient's judgement and insights: Poor I/J - Mood Mood: Anxious - Affect Affect: Other (Labile) - Speech Speech: Pressured - Formal Thought Process Formal Thought Process: Paranoia, Loosening of associations Psychotic Thoughts and Behaviors: Paranoia and/or visual hallucinations - Suicidal Ideation Suicidal Ideation: No - Homicidal Ideation Homicidal Ideation: No Goal/Treatment Plan - Goal/Treatment Plan Need for Continued Stay: Remain at risks for inpatient hospitalization, Discharge may exacerbated symptoms Progress Toward Problem(s) and Goals/Treatment Plan: Major Depressive Disorder w/ Psychotic Features; Generalized Anxiety Disorder -Individual and group therapy -Increase Risperdal -Continue Zoloft -Medicine consult -Continue Vimpat -Disposition planning Estimated Date of D/C: 04/17/18
[2018-04-15] MEDS: Multivitamin With Minerals Tab PO SCH (08:46)
[2018-04-15] MEDS: Pantoprazole 40 mg EC Tab PO SCH (08:47)
[2018-04-15] MEDS: Lacosamide 100 MG Tab PO SCH ×2 (08:50→17:20)
[2018-04-15] MEDS: Risperidone M TAB 2 MG PO SCH ×2 (09:00→21:00)
[2018-04-16] MEDS: Multivitamin With Minerals Tab PO SCH (08:35)
[2018-04-16] MEDS: Pantoprazole 40 mg EC Tab PO SCH (08:35)
[2018-04-16] MEDS: Lacosamide 100 MG Tab PO SCH ×2 (08:37→16:18)
--- NOTE | 2018-04-16 08:38 | PCM.PYCHPN ---
Psychiatric Progress Note - Psychiatric Progress Note Patient seen today, length of contact: Pt evaluated, case discussed w/ team, chart reviewed Patient Chief Complaint: Paranoia Problems Identified/Issues Discussed: Patient continues to be bizarre at times, was observed applying butter to her hair and skin for moisture. She denies acute AH/VH, but continues to be paranoid and non-linear at times. No adverse effects to medications reported. Medication Change: No Medical Record Reviewed: Yes Consults ordered or reviewed: Medicine consult Mental Status Examination - Cognitive Function Orientation: Person, Place, Situation Memory: Impaired Attention: Poor Concentration: Poor Association: Loose Fund of Knowledge: Poor Decription of patient's judgement and insights: Poor I/J - Mood Mood: Anxious - Affect Affect: Other (Labile) - Speech Speech: Appropriate - Formal Thought Process Formal Thought Process: Paranoia, Loosening of associations Psychotic Thoughts and Behaviors: Paranoia - Suicidal Ideation Suicidal Ideation: No - Homicidal Ideation Homicidal Ideation: No Goal/Treatment Plan - Goal/Treatment Plan Need for Continued Stay: Remain at risks for inpatient hospitalization, Discharge may exacerbated symptoms Progress Toward Problem(s) and Goals/Treatment Plan: Major Depressive Disorder w/ Psychotic Features; Generalized Anxiety Disorder -Individual and group therapy -Increase Risperdal -Continue Zoloft -Medicine consult -Continue Vimpat -Disposition planning Estimated Date of D/C: 04/20/18
[2018-04-16] MEDS: Risperidone M TAB 2 MG PO SCH ×2 (10:07→21:03)
--- NOTE | 2018-04-16 11:29 | CARD ---
APPROVED REPORT Date of service: 04/16/2018 EKG Measurement Heart [id number] <Conclusion> Sinus tachycardia Possible inferior-posterior infarct, age undetermined T wave changes consider lateral ischemia Abnormal ECG
[2018-04-16] MEDS: Apap-Butalbital-Caffeine 325-50-40mg Tab PO PRN (14:20)
--- NOTE | 2018-04-17 08:05 | PCM.PYCHPN ---
Psychiatric Progress Note - Psychiatric Progress Note Patient seen today, length of contact: Pt evaluated, case discussed w/ team, chart reviewed Patient Chief Complaint: Paranoia Problems Identified/Issues Discussed: Patient is less bizarre and less paranoid, no longer reporting concerns about some unknown many trying to harm her. She is more linear on conversation. She continues to report difficult sleeping at night. No adverse effects to medications reported. Medication Change: No Medical Record Reviewed: Yes Consults ordered or reviewed: Medicine consult Mental Status Examination - Cognitive Function Orientation: Person, Place, Situation Memory: Impaired Attention: Poor Concentration: Poor Association: WNL Fund of Knowledge: WNL Decription of patient's judgement and insights: Improving I/J - Mood Mood: Anxious - Affect Affect: Broad - Speech Speech: Appropriate - Formal Thought Process Formal Thought Process: Paranoia, Loosening of associations Psychotic Thoughts and Behaviors: Less paranoia - Suicidal Ideation Suicidal Ideation: No - Homicidal Ideation Homicidal Ideation: No Goal/Treatment Plan - Goal/Treatment Plan Need for Continued Stay: Remain at risks for inpatient hospitalization, Discharge may exacerbated symptoms Progress Toward Problem(s) and Goals/Treatment Plan: Major Depressive Disorder w/ Psychotic Features; Generalized Anxiety Disorder -Individual and group therapy -Continue Risperdal -Continue Zoloft -Medicine consult -Continue Vimpat -Disposition planning Estimated Date of D/C: 04/20/18
[2018-04-17] MEDS: Multivitamin With Minerals Tab PO SCH (08:47)
[2018-04-17] MEDS: Risperidone M TAB 2 MG PO SCH ×2 (08:47→21:01)
[2018-04-17] MEDS: Pantoprazole 40 mg EC Tab PO SCH (08:47)
[2018-04-17] MEDS: Lacosamide 100 MG Tab PO SCH ×2 (08:48→16:57)
[2018-04-17] MEDS: Apap-Butalbital-Caffeine 325-50-40mg Tab PO PRN ×2 (08:48→23:26)
[2018-04-17 13:20] VITALS: BMI 24.0
[2018-04-18] MEDS: Multivitamin With Minerals Tab PO SCH (08:31)
[2018-04-18] MEDS: Risperidone M TAB 2 MG PO SCH ×2 (08:31→21:10)
[2018-04-18] MEDS: Pantoprazole 40 mg EC Tab PO SCH (08:32)
[2018-04-18] MEDS: Lacosamide 100 MG Tab PO SCH ×2 (08:37→16:35)
--- NOTE | 2018-04-18 09:25 | PCM.PYCHPN ---
Psychiatric Progress Note - Psychiatric Progress Note Patient seen today, length of contact: Pt evaluated, case discussed w/ team, chart reviewed Patient Chief Complaint: pt has been less paranoid and less delusional but still very anxious and still with poor insight and need further stabilization. pt is tolerating risperdal well and no side effects to meds. Medication Change: No Medical Record Reviewed: Yes Mental Status Examination - Cognitive Function Orientation: Person, Place, Situation Memory: Impaired Attention: Poor Concentration: Poor Association: WNL Fund of Knowledge: WNL - Mood Mood: Anxious - Affect Affect: Broad - Speech Speech: Appropriate - Formal Thought Process Formal Thought Process: Paranoia, Loosening of associations - Suicidal Ideation Suicidal Ideation: No - Homicidal Ideation Homicidal Ideation: No Goal/Treatment Plan - Goal/Treatment Plan Need for Continued Stay: Remain at risks for inpatient hospitalization, Disch arge may exacerbated symptoms Progress Toward Problem(s) and Goals/Treatment Plan: will continue to stabilize the psychosis and mood with meds and engage pt in therapy. Disposition as per dr blue. Estimated Date of D/C: 04/20/18
[2018-04-19] MEDS: Pantoprazole 40 mg EC Tab PO SCH (08:43)
[2018-04-19] MEDS: Risperidone M TAB 2 MG PO SCH ×2 (08:43→21:01)
[2018-04-19] MEDS: Multivitamin With Minerals Tab PO SCH (08:43)
[2018-04-19] MEDS: Lacosamide 100 MG Tab PO SCH ×2 (08:47→16:43)
--- NOTE | 2018-04-19 13:25 | PCM.PYCHPN ---
Psychiatric Progress Note - Psychiatric Progress Note Patient seen today, length of contact: Pt evaluated, case discussed w/ team, chart reviewed Patient Chief Complaint: pt has been more paranoid and still delusional and still very anxious and still with poor insight and need further stabilization. pt is tolerating risperdal well and no side effects to meds. Medication Change: No Medical Record Reviewed: Yes Mental Status Examination - Cognitive Function Orientation: Person, Place, Situation Memory: Impaired Attention: Poor Concentration: Poor Association: WNL Fund of Knowledge: WNL - Mood Mood: Anxious - Affect Affect: Broad - Speech Speech: Appropriate - Formal Thought Process Formal Thought Process: Paranoia, Loosening of associations - Suicidal Ideation Suicidal Ideation: No - Homicidal Ideation Homicidal Ideation: No Goal/Treatment Plan - Goal/Treatment Plan Need for Continued Stay: Remain at risks for inpatient hospitalization, Dis charge may exacerbated symptoms Progress Toward Problem(s) and Goals/Treatment Plan: will continue to stabilize the psychosis and add risperdal o.5 mg at 5 pm and stabilize the mood with meds and engage pt in therapy. Disposition as per dr blue. Estimated Date of D/C: 04/20/18
[2018-04-20] MEDS: Multivitamin With Minerals Tab PO SCH (08:45)
[2018-04-20] MEDS: Lacosamide 100 MG Tab PO SCH ×2 (08:49→17:45)
[2018-04-20] MEDS ORDERED: Risperidone M TAB 2 MG PO SCH ×2 (09:00→21:00)
[2018-04-20] MEDS: Pantoprazole 40 mg EC Tab PO SCH (09:10)
--- NOTE | 2018-04-20 09:37 | PCM.PYCHPN ---
Psychiatric Progress Note - Psychiatric Progress Note Patient seen today, length of contact: Pt evaluated, case discussed w/ team, chart reviewed Patient Chief Complaint: Paranoia, now improved Problems Identified/Issues Discussed: Patient is improving clinically. She denies acute paranoia/ AH/VH. She reports that her mood is improving and she feels less anxious. She is more organized on conversation. Previous cognitive impairment was likely exacerbated by acute psychosis, which is resolving. No adverse effects to medications reported. Psychoeducation provided on the importance of compliance with treatment and medications. Medication Change: No Medical Record Reviewed: Yes Consults ordered or reviewed: Medicine consult Mental Status Examination - Cognitive Function Orientation: Person, Place, Situation, Time Memory: Impaired Attention: WNL Concentration: WNL Association: WNL Fund of Knowledge: WN Decription of patient's judgement and insights: Improving I/J - Mood Mood: Anxious - Affect Affect: Broad - Speech Speech: Appropriate - Formal Thought Process Formal Thought Process: No Impairment Psychotic Thoughts and Behaviors: Denies acute paranoia/AH/VH - Suicidal Ideation Suicidal Ideation: No - Homicidal Ideation Homicidal Ideation: No Goal/Treatment Plan - Goal/Treatment Plan Need for Continued Stay: Discharge may exacerbated symptoms Progress Toward Problem(s) and Goals/Treatment Plan: Major Depressive Disorder w/ Psychotic Features; Generalized Anxiety Disorder -Individual and group therapy -Continue Risperdal -Continue Zoloft -Medicine consult -Continue Vimpat -Disposition planning- likely discharge tomorrow as patient is improving clinically Estimated Date of D/C: 04/21/18
[2018-04-21 06:08] VITALS: BP 145/77; PULSE 82; RESP 18; TEMP 98
[2018-04-21] MEDS: Pantoprazole 40 mg EC Tab PO SCH (08:01)
--- NOTE | 2018-04-21 08:01 | PCM.PYCHDC ---
Mental Status Examination - Mental Status Examination Orientation: Person, Place, Situation, Time Memory: Impaired Mood: Neutral Affect: Broad Speech: Appropriate Attention: WNL Concentration: WNL Association: WNL Fund of Knowledge: WNL Formal Thought Process: No Impairment Description of patient's judgement and insight: Fair I/J Psychotic Thoughts and Behaviors: Denies acute paranoia/AH/VH Suicidal Ideation: No Current Homicidal Ideation?: No Discharge Summary - Discharge Note Reason for Hospitalization: HPI: 62 yo female initially presented and admitted to [facility] with worsening depression, poor sleep, poor appetite, poor appetite, poor memory, feelings of hopelessness, feelings frustrated that her son does not visit her more and care for her more. Patient was transferred to medicine after she had a seizure and now transferred back to [facility] with continued depression, but now patient is acutely psychotic, paranoid and disorganized. PPHx: Hopitalized on [facility] in 08/2017. Remote history of hospitalizations and 2 suicide attempts by ingesting Bleach, she does not give a specific date. She is currently prescribed Amitriptyline 50 mg PO Daily, Klonopin 2 mg PO Q12 by her PMD Dr. 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 Reason for request. 2. Findings. 3. Follow-up Consultations: Medicine consult, Neurology consult Summary of Hospital Course include:: 1. Description of specific treatment plan utilized for patients during their course of treatmen. 2. Summarize the time- course for resolution of acute symptoms and/or regressed behaviors. 3. Describe issues identified and worked on during hospitalization. 4. Describe medication utilized. 5. Describe medical problems identified and treated. 6. Reassessment of suicide risk Summary of Hospital Course: Patient was admitted to the psychiatry unit. Individual and group therapy were provided. Patient was stabilized on Zoloft 50 mg PO Daily and Risperdal 2 mg PO Q12 hr. She was evaluated by neurology consult, the Keppra was stopped and she started treatment with Vimpat 100 mg PO BID. - Diagnosis (1) Major depressive disorder with psychotic features Current Visit: Yes Status: Acute (2) Generalized anxiety disorder Current Visit: No Status: Acute - Final Diagnosis (DSM 5) Condition upon Discharge: GOOD DSM 5: Major Depressive Disorder w/ Psychotic Features; Generalized Anxiety Disorder Disposition: HOME/ ROUTINE Follow-up Treatment Plan: Major Depressive Disorder w/ Psychotic Features; Generalized Anxiety Disorder -Individual and group therapy -Continue Risperdal -Continue Zoloft -Medicine consult -Continue Vimpat -Case discussed w/ patient's family Prescriptions/Medication Reconciliation: Lacosamide [Vimpat] 100 mg PO BID #60 tab risperiDONE [RisperDAL Tab] 2 mg PO Q12 #60 tab Sertraline [Zoloft] 50 mg PO DAILY #30 tab - Smoking Cessation Smoking Cessation Medication prescribed: No Reason for not providing: Not indicated - Antipsychotic Medications Pt discharged on 2 or more routine antipsychotic medications: No
[2018-04-21] MEDS: Multivitamin With Minerals Tab PO SCH (08:02)
[2018-04-21] MEDS: Lacosamide 100 MG Tab PO SCH (08:02)
== END 2018-04-21 14:10 | disposition home or self-care (01) | DRG 885 ==
LOC: H.STEP 17:46
PROVIDERS: ADMIT Psychiatry & Neurology Psychiatry; ATTEND Psychiatry & Neurology Psychiatry
PROC: GZHZZZZ Group Psychotherapy (ICD-10-PCS; principal; 2018-04-12)
PROC: GZ58ZZZ Individual Psychotherapy, Cognitive-Behavioral (ICD-10-PCS; 2018-04-12)
DX: F32.3 Major depressive disorder, single episode, severe with psychotic features (principal); F41.1 Generalized anxiety disorder; G40.909 Epilepsy, unspecified, not intractable, without status epilepticus; I10 Essential (primary) hypertension; M81.0 Age-related osteoporosis without current pathological fracture; Z91.14 Patient's other noncompliance with medication regimen; E11.9 Type 2 diabetes mellitus without complications; E78.00 Pure hypercholesterolemia, unspecified; E78.5 Hyperlipidemia, unspecified; M19.90 Unspecified osteoarthritis, unspecified site; H54.61 Unqualified visual loss, right eye, normal vision left eye